=== PATIENT | female | born 1990 | race Caucasian/White ===

== ENCOUNTER → 2017-11-15 10:10 | Outpatient (CLI) | payer OTHER, SELFPAY ==
[2017-11-15 11:53] LABS: Free T3 4.6 pg/mL (2.18-3.98); T4 Free Direct 1.04 ng/dL (0.76-1.46); Thyroid Stim Hormone (TSH) < 0.01 uIU/mL (0.358-3.74)
== END ==
DX: O09.90 Supervision of high risk pregnancy, unspecified, unspecified trimester (principal); Z3A.00 Weeks of gestation of pregnancy not specified
CPT/HCPCS: 36415; 84439; 84443; 84481

== ENCOUNTER → 2017-12-13 09:36 | Outpatient (CLI) | payer OTHER, SELFPAY ==
[2017-12-13 11:32] LABS: Free T3 6.5 pg/mL (2.18-3.98); T4 Free Direct 1.43 ng/dL (0.76-1.46); Thyroid Stim Hormone (TSH) < 0.01 uIU/mL (0.358-3.74)
== END ==
DX: O09.90 Supervision of high risk pregnancy, unspecified, unspecified trimester (principal); Z3A.00 Weeks of gestation of pregnancy not specified
CPT/HCPCS: 36415; 84439; 84443; 84481

== ENCOUNTER → 2017-12-15 11:22 | Outpatient (CLI) | payer OTHER, SELFPAY ==
[2017-12-15 13:16] LABS: 24 Hour Urine Protein 344.4 mg/24HR (<150 MG/24HR); 24HR. UA Prot. Total Volume 2050 mL; Urine Protein (24 Hour) 16.8 mg/dL (<11.9)
== END ==
DX: O09.90 Supervision of high risk pregnancy, unspecified, unspecified trimester (principal); Z3A.00 Weeks of gestation of pregnancy not specified
CPT/HCPCS: 84156

== ENCOUNTER → 2018-01-10 13:31 | Outpatient (CLI) | payer OTHER, SELFPAY ==
[2018-01-10 16:17] LABS: Free T3 5.7 pg/mL (2.18-3.98); T4 Free Direct 1.42 ng/dL (0.76-1.46); Thyroid Stim Hormone (TSH) < 0.01 uIU/mL (0.358-3.74)
== END ==
PROVIDERS: Family Provider Internal Medicine; PCP Internal Medicine
DX: O09.90 Supervision of high risk pregnancy, unspecified, unspecified trimester (principal); Z3A.00 Weeks of gestation of pregnancy not specified
CPT/HCPCS: 36415; 84439; 84443; 84481

== ENCOUNTER → 2018-01-19 09:28 | Outpatient (CLI) | payer OTHER, SELFPAY ==
[2018-01-19 10:36] LABS: Hematocrit 32.8 % (37-47); Hemoglobin 10.9 g/dl (12.0-15.0); Mean Corp Hgb Conc 33.2 g/gl (32-36); Mean Corpuscular Volume 84.3 fL (81-99); Mean Platelet Vol. 9.3 fl (6.2-12.0); Platelet Count 228 K/mm3 (150-450); RBC Distribution Width CV 12.4 % (11.6-14.6); RBC Distribution Width SD 37.8 fl (35.1-43.9); Red Blood Count 3.89 M/mm3 (4.2-5.4); White Blood Count 7.3 K/mm3 (4.4-11.0)
[2018-01-19 10:37] LABS: Scan Indicated on CBC? Y/N NO
[2018-01-19 10:40] LABS: Glucose Challenge Gest 1H 50g 147 mg/dL (70-140)
== END ==
PROVIDERS: Visit Provider Obstetrics & Gynecology
DX: Z34.82 Encounter for supervision of other normal pregnancy, second trimester (principal)
CPT/HCPCS: 36415; 82950; 85027

== ENCOUNTER → 2018-01-24 06:50 | Outpatient (CLI) | payer OTHER, SELFPAY ==
[2018-01-24 08:12] LABS: Glucose GTT-Gestation. Fasting 82 mg/dL (<105)
[2018-01-24 09:19] LABS: Glucose GTT-Gestational 1 Hr 137 mg/dL (<190)
[2018-01-24 10:00] LABS: Glucose GTT-Gestational 2 Hr 117 mg/dL (<165)
[2018-01-24 11:26] LABS: Glucose GTT-Gestational 3 Hr 73 L (<145)
== END ==
PROVIDERS: Family Provider Internal Medicine; PCP Internal Medicine; Visit Provider Obstetrics & Gynecology
DX: O99.810 Abnormal glucose complicating pregnancy (principal); Z3A.00 Weeks of gestation of pregnancy not specified
CPT/HCPCS: 36415; 82951; 82952

== ENCOUNTER → 2018-02-03 10:40 | Outpatient (CLI) | payer OTHER, SELFPAY ==
[2018-02-03 13:13] LABS: ALB/GLOB Ratio 0.7 RATIO (0.9-2.4); AST(SGOT) 11 U/L (15-37); Alanine Aminotransfer ALT/SGPT 18 U/L (13-56); Albumin, Serum 2.6 g/dL (3.2-5.0); Alkaline Phosphatase 75 U/L (45-117); Anion Gap 7 (5-15); BUN 7 mg/dL (7-18); BUN/Creat Ratio 14.1 RATIO (10-20); Calcium,Total 9.2 mg/dL (8.5-10.1); Chloride 107 mmol/L (98-107); EST Glomerular Filtration Rate 155 mL/min (>60); Est Glom Filt Rate - Afr Amer 187 mL/min (>60); Free T3 5.7 pg/mL (2.18-3.98); Globulin 3.8 g/dL (2.2-4.2); Glucose 83 mg/dL (74-106); Protein, Total 6.4 g/dL (6.4-8.2); Sodium Level 139 mmol/L (136-145); T4 Free Direct 1.41 ng/dL (0.76-1.46); Thyroid Stim Hormone (TSH) < 0.01 uIU/mL (0.358-3.74); Total Bilirubin < 0.10 mg/dL (0.20-1.00)
[2018-02-04 08:27] LABS: Vitamin D,25 Hydroxy 25.9 ng/mL (29.95-100.01)
== END ==
DX: O09.90 Supervision of high risk pregnancy, unspecified, unspecified trimester (principal); Z3A.00 Weeks of gestation of pregnancy not specified; E55.9 Vitamin D deficiency, unspecified; E05.90 Thyrotoxicosis, unspecified without thyrotoxic crisis or storm
CPT/HCPCS: 36415; 80053; 82306; 84439; 84443; 84481

== ENCOUNTER → 2018-03-03 10:38 | Outpatient (CLI) | payer OTHER, SELFPAY ==
[2018-03-03 13:00] LABS: Free T3 5.6 pg/mL (2.18-3.98); T4 Free Direct 1.51 ng/dL (0.76-1.46); Thyroid Stim Hormone (TSH) < 0.01 uIU/mL (0.358-3.74)
== END ==
DX: O09.90 Supervision of high risk pregnancy, unspecified, unspecified trimester (principal)
CPT/HCPCS: 36415; 84439; 84443; 84481

== ENCOUNTER → 2018-03-18 09:30 | Outpatient (CLI) | payer OTHER, SELFPAY ==
--- NOTE | 2018-03-18 09:30 | DT_ITS ---
This patient was seen during an EMR downtime March 14, 2018 - March 21, 2018. This patient may have a combination of paper and electronic documentation or all paper documentation. All documentation is viewable within the e-chart portion of [facility] for each patient visit.
== END ==
PROVIDERS: Visit Provider Obstetrics & Gynecology
DX: N39.0 Urinary tract infection, site not specified (principal)
CPT/HCPCS: 87086

== ENCOUNTER → 2018-03-30 11:44 | Outpatient (CLI) | payer OTHER, SELFPAY ==
[2018-03-30 12:27] LABS: ROM Internal Control Test YES-OK TO RESULT pt. (Internal QC)
[2018-03-30 12:28] LABS: ROM Patient Test Negative (Negative)
[2018-03-30 12:52] LABS: Free T3 5.8 pg/mL (2.18-3.98); T4 Free Direct 1.59 ng/dL (0.76-1.46); Thyroid Stim Hormone (TSH) < 0.01 uIU/mL (0.358-3.74)
[2018-03-30 14:05] LABS: Group B Strep DNA By PCR POSITIVE (Negative); Probe Check PASS
== END ==
PROVIDERS: Visit Provider Obstetrics & Gynecology
DX: Z34.83 Encounter for supervision of other normal pregnancy, third trimester (principal)
CPT/HCPCS: 36415; 84112; 84439; 84443; 84481; 87653

== ENCOUNTER 2018-04-11 10:10 | Inpatient (IN) | payer OTHER, SELFPAY ==
[2018-04-11 10:37] VITALS: BMI 27.3
[2018-04-11] MEDS: Lactated Ringers 1,000 ML 50 ML IV ×3 (10:40→18:45)
[2018-04-11 10:52] LABS: Hemoglobin 11.7 g/dl (12.0-15.0); Mean Corp Hgb Conc 33.4 g/gl (32-36); Mean Corpuscular Hgb 27.3 pg (27.0-32.0); Mean Corpuscular Volume 81.8 fL (81-99); Mean Platelet Vol. 9.2 fl (6.2-12.0); Platelet Count 220 K/mm3 (150-450); RBC Distribution Width CV 13.1 % (11.6-14.6); Red Blood Count 4.28 M/mm3 (4.2-5.4); White Blood Count 7.5 K/mm3 (4.4-11.0)
[2018-04-11 10:53] LABS: Scan Indicated on CBC? Y/N NO
[2018-04-11] MEDS: Oxytocin 30 units/NS 500 ml 30 UNITS/500 ML IV.SOLN IV (11:33)
[2018-04-11] MEDS: fentaNYL-bupivacaine (epidural) 100 ML BAG EPIDURAL ×2 (15:54→18:47)
[2018-04-11] MEDS: Acetaminophen 325 MG Tablet PO (17:24)
[2018-04-11] MEDS: Oxytocin 30 units/NS 500 ml 30 UNITS/500 ML IV.SOLN 334 UNITS IV (21:45)
--- NOTE | 2018-04-11 21:57 | PCM.OB.VAG ---
Vaginal Delivery Maternal Presentation: Medically Indicated Induction - Hyperthyroidism Method of Induction: Pitocin, Amniotomy Amniotic Membrane Rupture Type: Artificial Amniotic Fluid Description: Clear Final RADHA: 04/15/18 Final RADHA Source: US <20 weeks Gestational age: 39 Weeks and 3 Days Date of Procedure: 04/11/18 Pre-Operative Diagnosis: IUP, Hyperthyroidism Post-Operative Diagnosis: IUP, Hyperthyroidism Surgery/ Procedure Performed: Spontaneous Vaginal Delivery Type of Anesthesia: Epidural Description of Procedure: Spontaneous vaginal delivery of a viable male infant with Apgars of 8/9 from an occiput anterior presentation clear amniotic fluid and a normal 3 vessel placenta. No episiotomy. First-degree 1 cm right labial laceration repaired with 3-0 chromic suture interrupted under epidural anesthesia. Sponge counts okay. Delivery physician: Sai Pfeiffer MD. Presentation: Vertex Placental Delivery Description: Spontaneous Placenta Disposition: [facility] Cord Vessel Description: 3 Vessels Cord Gases drawn per routine: ABG Cord Entanglement: None Estimated Blood Loss: 250 cc Infant A gender: Male (1 minute): 8 (5 minute): 9 Episiotomy Description: None Medications given after delivery: IV Pitocin Complications: None
--- NOTE | 2018-04-11 22:04 | DCINST_ITS ---
Discharge Diet: No Restrictions Discharge Activity: May Shower, May Take a Tub Bath May resume sexual activity in: 4-6 weeks Additional Activity Instructions:: Nothing in the vagina for 4-6 weeks. You may return to work/school in 6 weeks. Call your doctor if you observe: Fever of 101 or Higher, Inability to urinate, Inability to have a bowel movement, Using more than one pad per hour Additional Instructions: If you experience any of the following, contact your healthcare provider. * Bleeding that soaks a pad every hour for 2 hours * Unrelieved incision or abdominal pain * Swelling, redness, discharge or bleeding from your incision or episiotomy site * Your incision begins to separate * Problems urinating (including inability to urinate or burning while urinating) . * Visual changes * Severe headache * Flu-like symptoms * Pain or redness in one of both of your breasts * Pain, warmth, tenderness or swelling in your legs, especially the calf area * Frequent nausea and vomiting * Symptoms of depression or anxiety If you experience any of the following, call 911 or go to the nearest Emergency Room. * Chest pain * Problems breathing * Seizure activity * Partial or complete paralysis of a body part, slurred speech, weakness or drooping of the face, or a sudden inability to walk or hold your balance Allergies/Adverse Reactions: Allergies No Known Allergies Allergy (Verified 06/26/14 06:08) Medications to take at Discharge Vits [Prenatabs FA ] 1 tablet PO DAILY 06/26/14 Methimazole 10 mg PO DAILY 04/11/18 Ranitidine [Zantac] 150 mg PO BID 04/11/18 Please Follow Up With: Sai Pfeiffer MD - [phone] When: Call to make an appointment with your doctor in 6 weeks. Primary Care Physician: Mehdi Rivera MD [Primary Care Provider] - Test Results:
--- NOTE | 2018-04-11 22:04 | PCM.DCVAG ---
Discharge Diet: No Restrictions Discharge Activity: May Shower, May Take a Tub Bath May resume sexual activity in: 4-6 weeks Additional Activity Instructions:: Nothing in the vagina for 4-6 weeks. You may return to work/school in 6 weeks. Call your doctor if you observe: Fever of 101 or Higher, Inability to urinate, Inability to have a bowel movement, Using more than one pad per hour Additional Instructions: If you experience any of the following, contact your healthcare provider. Bleeding that soaks a pad every hour for 2 hours Unrelieved incision or abdominal pain Swelling, redness, discharge or bleeding from your incision or episiotomy site Your incision begins to separate Problems urinating (including inability to urinate or burning while urinating). Visual changes Severe headache Flu-like symptoms Pain or redness in one of both of your breasts Pain, warmth, tenderness or swelling in your legs, especially the calf area Frequent nausea and vomiting Symptoms of depression or anxiety If you experience any of the following, call 911 or go to the nearest Emergency Room. Chest pain Problems breathing Seizure activity Partial or complete paralysis of a body part, slurred speech, weakness or drooping of the face, or a sudden inability to walk or hold your balance Allergies/Adverse Reactions: Allergies No Known Allergies Allergy (Verified 06/26/14 06:08) Medications to take at Discharge Vits [Prenatabs FA ] 1 tablet PO DAILY 06/26/14 Methimazole 10 mg PO DAILY 04/11/18 Ranitidine [Zantac] 150 mg PO BID 04/11/18 Please Follow Up With: Sai Pfeiffer MD - [phone] When: Call to make an appointment with your doctor in 6 weeks. Primary Care Physician: Mehdi Rivera MD [Primary Care Provider] - Test Results:
[2018-04-11] MEDS: Oxytocin 30 units/NS 500 ml 30 UNITS/500 ML IV.SOLN 167 UNITS IV (22:15)
[2018-04-11] MEDS: METHIMAZOLE 5 MG TABLET 10 MG PO (22:54)
[2018-04-12] MEDS: Ibuprofen 600 MG Tablet PO ×3 (01:30→16:10)
[2018-04-12 04:00] VITALS: BP 120/69; PULSE 68; RESP 16; TEMP 36.6; O2SAT 99
[2018-04-12] MEDS: Acetaminophen 500 MG Tablet 1000 MG PO ×3 (04:41→20:31)
--- NOTE | 2018-04-12 06:21 | PCM.PN.OB ---
Subjective: Patient without complaints. Breast-feeding going well. - Physical Exam Vital Signs Temp Pulse Resp BP Pulse Ox 97.9 F 68 16 120/69 99 04/12/18 04:00 04/12/18 04:00 04/12/18 04:00 04/12/18 04:00 04/12/18 04:00 Oxygen Delivery Method Room Air Weight: 169 lb 4 oz Body Mass Index (BMI) 27.3 Intake and Output for Last 24 Hours 04/10/18 04/11/18 04/12/18 23:59 23:59 23:59 Intake Total 5921 / 5921 Output Total 1500 / 1500 700 / 700 Balance 4421 / 4421 -700 / -700 Laboratory Tests Past 24 Hrs 04/11/18 04/11/18 10:30 10:30 WBC 7.5 RBC 4.28 Hgb 11.7 L Hct 35.0 L MCV 81.8 MCH 27.3 MCHC 33.4 RDW 13.1 RDW Differential 39.0 Plt Count 220 MPV 9.2 Blood Type A POSITIVE Antibody Screen NEGATIVE Medical Necessity - Tobacco Use Smoking Status: Never smoker Assessment/Plan Doing well. Continuing present care.
[2018-04-12 07:30] VITALS: BP 115/60; PULSE 76; RESP 16; TEMP 36.2
[2018-04-12 11:27] VITALS: BP 131/73; PULSE 88; RESP 16; TEMP 36.1
[2018-04-12 20:25] VITALS: BP 122/82; PULSE 70; RESP 16; TEMP 36
[2018-04-12] MEDS: METHIMAZOLE 5 MG TABLET 10 MG PO (22:07)
[2018-04-13] MEDS: Ibuprofen 600 MG Tablet PO ×2 (00:16→09:37)
[2018-04-13 02:00] VITALS: BP 106/58; PULSE 71; RESP 16; TEMP 35.9
--- NOTE | 2018-04-13 03:15 | NURSING ---
Taking over pt care at this time.
[2018-04-13] MEDS: Acetaminophen 500 MG Tablet 1000 MG PO (06:28)
--- NOTE | 2018-04-13 07:44 | PCM.PN.OB ---
Subjective: PPD#2 doing well. ready to go home. Taking some tylenol and NSAID for cramping prn. no other concerns voiced. - Physical Exam General: Alert, Oriented x3, Cooperative, No apparent distress HEENT: Atraumatic Neck: Supple Abdomen: Soft - Fundus firm NT at 1-2 cm inferior to umbilicus Psych/Mental Status: Normal Affect Vital Signs Temp Pulse Resp BP Pulse Ox 96.7 F L 71 16 106/58 L 99 04/13/18 02:00 04/13/18 02:00 04/13/18 02:00 04/13/18 02:00 04/12/18 04:00 Oxygen Delivery Method Room Air Weight: 76.771 kg Body Mass Index (BMI) 27.3 Intake and Output for Last 24 Hours 04/11/18 04/12/18 04/13/18 23:59 23:59 23:59 Intake Total 5921 / 5921 Output Total 1500 / 1500 700 / 700 Balance 4421 / 4421 -700 / -700 Medical Necessity - Tobacco Use Smoking Status: Never smoker Assessment/Plan PPD#2 induction for hyperthyroidism Stable pp. Dischg home. RTO in 6 wk for pp check as planned.
[2018-04-13 08:30] VITALS: BP 108/65; PULSE 73; RESP 15; TEMP 36.2; O2SAT 98
== END 2018-04-13 09:45 | disposition home or self-care (01) | DRG 775 ==
PROVIDERS: Admitting Provider Obstetrics & Gynecology; Family Provider Internal Medicine; PCP Internal Medicine; Visit Provider Obstetrics & Gynecology
DX: O99.284 Endocrine, nutritional and metabolic diseases complicating childbirth (principal); E05.90 Thyrotoxicosis, unspecified without thyrotoxic crisis or storm; O70.0 First degree perineal laceration during delivery; Z37.0 Single live birth; Z3A.39 39 weeks gestation of pregnancy
CPT/HCPCS: 59025; 59050; 85027; 86850; 86900; 99218; J7120; G0378

== ENCOUNTER → 2018-04-27 14:19 | Outpatient (CLI) | payer OTHER, SELFPAY ==
[2018-04-27 16:42] LABS: Free T3 6.8 pg/mL (2.18-3.98); T4 Free Direct 1.64 ng/dL (0.76-1.46); Thyroid Stim Hormone (TSH) < 0.01 uIU/mL (0.358-3.74)
== END ==
PROVIDERS: Visit Provider Obstetrics & Gynecology
DX: E21.3 Hyperparathyroidism, unspecified (principal)
CPT/HCPCS: 36415; 84439; 84443; 84481

== ENCOUNTER → 2018-04-27 14:35 | Day surgery (SDC) | payer OTHER, SELFPAY | PROVIDERS: Anesthesiology; Family Provider Internal Medicine; PCP Internal Medicine; Visit Provider Obstetrics & Gynecology | PROC: 3E0R3GC Introduction of Other Therapeutic Substance into Spinal Canal, Percutaneous Approach (ICD-10-PCS; CPT 62273; principal; 2018-04-27 14:45) | DX: G97.1 Other reaction to spinal and lumbar puncture (principal); Y84.4 Aspiration of fluid as the cause of abnormal reaction of the patient, or of later complication, without mention of misadventure at the time of the procedure; Y92.9 Unspecified place or not applicable | CPT/HCPCS: 62273; J7120 ==

== ENCOUNTER → 2018-07-18 11:58 | Outpatient (CLI) | payer OTHER, SELFPAY ==
[2018-07-18 12:08] LABS: Bacteria 0 SEEN /hpf (None Seen); Red Blood Cells-Urine 0 SEEN /hpf (0-5)
[2018-07-18 13:29] LABS: Color, Urine Yellow (Yellow); Glucose, Dipstick Normal (Normal); Ketone-Dipstick Negative (Negative); Leukocyte Esterase-Dipstick Negative /ul (Negative); Nitrite-Dipstick Negative (Negative); Occult Blood-Urine Negative /ul (Negative); Protein-Dipstick 100 mg/dl (Negative); Urine Bilirubin Dipstick Negative (Negative); Urine Clarity Clear (Clear); Urine Urobilinogen Normal (Normal)
[2018-07-18 13:36] LABS: Mucous, Urine 1+ /hpf (<or=2+); Squamous Epithelial Cells - UA 0-5 SEEN /hpf (5-10); White Blood Cells 0-5 SEEN /hpf (0-5)
== END ==
PROVIDERS: Family Provider Internal Medicine; PCP Internal Medicine; Referring Provider Internal Medicine; Visit Provider Internal Medicine
DX: R80.9 Proteinuria, unspecified (principal)
CPT/HCPCS: 81001

== ENCOUNTER → 2018-07-22 08:15 | Outpatient (CLI) | payer OTHER, SELFPAY ==
[2018-07-22 09:20] LABS: 24HR. UA Prot. Total Volume 2050 mL
== END ==
PROVIDERS: Family Provider Internal Medicine; PCP Internal Medicine; Referring Provider Internal Medicine; Visit Provider Internal Medicine
DX: R80.9 Proteinuria, unspecified (principal)
CPT/HCPCS: 81050; 84156

== ENCOUNTER → 2019-07-11 12:14 | Outpatient (CLI) | payer OTHER, SELFPAY ==
[2019-05-26 14:03] VITALS: BMI 22.7
[2019-07-11 14:09] LABS: CRP < 2.90 mg/L (0.0-3.0)
[2019-07-13 16:08] LABS: Endomysial Antibody IgA Negative (Negative)
[2019-07-14 12:48] LABS: Immunoglobulin A 164 mg/dL (87-352); t-Transglutaminase IgA <2 U/mL (0-3)
== END ==
PROVIDERS: Family Provider Internal Medicine; PCP Internal Medicine; Referring Provider Internal Medicine Gastroenterology; Visit Provider Internal Medicine Gastroenterology
DX: R19.7 Diarrhea, unspecified (principal)
CPT/HCPCS: 36415; 82784; 83516; 86140; 86255

== ENCOUNTER → 2019-07-17 09:00 | Outpatient (CLI) | payer OTHER, SELFPAY ==
[2019-05-26 14:03] VITALS: BMI 22.7
--- NOTE | 2019-07-17 09:02 | RAD_ITS ---
CLINICAL HISTORY: Female, 29 years old. Diarrhea forever PROCEDURE: Small bowel study FLUOROSCOPY TIME (if supplied): (1:06) minutes/seconds TECHNIQUE: (The pulmonary study shows a nonspecific gas pattern scattered throughout the large and small intestines. Barium contrast was orally ingested and sequential images were obtained. Then passed from the stomach through the small intestine to the colon in 30 minutes. 3 spot images of the terminal ileum were obtained and appear to be normal. No evidence of fistulas or masses or lesions are seen. The appendix partially fills and appears to be normal. RAD/Small Bowel Series Only IMPRESSION: Normal small bowel study Electronically Signed: Sai Gould, at 16:02 EDT Tel , Service support ,
== END ==
PROVIDERS: Family Provider Internal Medicine; PCP Internal Medicine; Referring Provider Internal Medicine Gastroenterology; Visit Provider Internal Medicine Gastroenterology
DX: R19.7 Diarrhea, unspecified (principal)
CPT/HCPCS: 74250

== ENCOUNTER → 2019-09-21 11:23 | Outpatient (CLI) | payer OTHER, SELFPAY ==
[2019-07-21 09:48] VITALS: BMI 22.7
[2019-09-21 13:19] LABS: AST(SGOT) 9 U/L (15-37); Alanine Aminotransfer ALT/SGPT 16 U/L (13-56); Albumin, Serum 3.8 g/dL (3.2-5.0); Alkaline Phosphatase 50 U/L (45-117); Bilirubin, Direct 0.07 mg/dL (0.00-0.30); Globulin 3.2 g/dL (2.2-4.2); Lipase 69 U/L (73-393)
== END ==
PROVIDERS: Family Provider Internal Medicine; PCP Internal Medicine; Referring Provider Internal Medicine Gastroenterology; Visit Provider Internal Medicine Gastroenterology
DX: R10.9 Unspecified abdominal pain (principal)
CPT/HCPCS: 36415; 80076; 83690

== ENCOUNTER 2020-12-12 16:41 | Emergency (ER) | payer OTHER, SELFPAY ==
[2019-07-21 09:48] VITALS: BMI 22.7
[2020-12-12 16:41] VITALS: BP 142/81; PULSE 80; RESP 16; TEMP 35.6; O2SAT 100
[2020-12-12 16:42] VITALS: BP 142/81; PULSE 84; RESP 16; TEMP 35.6; O2SAT 100; BMI 22.0
--- NOTE | 2020-12-12 17:02 | EKG12_ITS ---
Test Reason : DIZZINESS Blood Pressure : / mmHG Vent. Rate : 065 BPM Atrial Rate : 065 BPM P-R Int : 180 ms QRS Dur : 080 ms QT Int : 444 ms P-R-T Axes : 057 080 055 degrees QTc Int : 461 ms Normal sinus rhythm Septal infarct , age undetermined , cannot be excluded Abnormal ECG Confirmed by NALINI BABIN, AISHWARYA ([id number]), clinical editor ROYR PRINGLE ([id number]) on 12/16/2020 2:42:21 PM Referred By: Confirmed By:AISHWARYA GAYLE MD
--- NOTE | 2020-12-12 17:11 | ED.VISSUMM ---
- ER Visit Summary Date of Service: 12/12/20 Chief Complaint: Vertigo History of Present Illness: The patient is a 30 F presenting with vertigo. 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 She states it is worse with turning her head or changing positions. She has had these symptoms in the past with previous pregnancies. She does not believe she is currently . She has nausea with no vomiting. She denies fever. She had Covid 3 weeks ago and has recovered. Physical Examination: Vitals are stable. Patient is afebrile. Alert no acute distress. HEENT exam is unremarkable. Neck is supple. No meningismus Lungs are clear and equal bilaterally. Heart is regular rate and rhythm. Abdomen is soft nontender nondistended. Extremities are unremarkable. Skin is warm and dry. No focal neurologic deficit. Normal strength and sensation Remainder of exam is unremarkable. Emergency Department Course and Treatment: Patient was given IV fluids, Zofran, Valium. EKG is sinus rhythm rate of 65 with no acute ischemic changes. CBC, chemistries unremarkable. Troponin is negative. hCG negative. D-dimer normal. Patient is feeling much improved on reevaluation. She is able to ambulate with a steady gait. She is given prescription for Valium as needed. She is advised to follow-up with her PCP or ENT as needed. Advised return to the ED for worsening complaints. Disposition: Discharge home Impression: Benign positional vertigo This note was generated with [employer] dictation software. It may contain incorrect words, spelling, and punctuation that were not noted in review of the chart prior to signing ED Disposition - Plan for ED Patient: Disposition: Home or Assisted Living Instructions: ED BPV Vertigo Prescriptions: Diazepam [Valium] 2 mg PO TID PRN PRN #10 tab PRN Reason: Vertigo Prescription Printed Referrals: Vargas Baeza MD [STAFF PHYSICIAN] - Mehdi Rivera MD [Primary Care Provider] -
[2020-12-12] MEDS: 0.9% Normal Saline 1,000 ML 1000 ML IV (17:26)
[2020-12-12] MEDS: Ondansetron 4 MG/2 ML Vial IV (17:26)
[2020-12-12] MEDS: diazePAM 5 MG Tablet PO (17:28)
[2020-12-12 17:46] LABS: Absolute Lymphocyte Count 2.34 X10^3/uL (0.83-4.51); Absolute Neutrophil Count 2.8 X10^3/uL (2.0-7.7); Basophil# 0.04 X10^3/uL; Basophil% 0.7 % (0-1); Eosinophil# 0.08 X10^3/uL; Eosinophils% 1.4 % (0-5); Hematocrit 41.9 % (37-47); Lymphocyte # 2.34 X10^3/ul (4.0); Lymphocyte % 40.7 % (19-41); Mean Corp Hgb Conc 33.4 g/dL (32-36); Mean Corpuscular Hgb 29.9 pg (27.0-32.0); Mean Corpuscular Volume 89.5 fL (81-99); Mean Platelet Vol. 9.7 fl (6.2-12.0); Monocyte% 8.7 % (0-10); NRBC Flagged by Analyzer 0 % (0-5); Neutrophil # 2.78 X10^3/uL (2.7-7.7); Neutrophil % 48.3 % (47-70); Platelet Count 317 K/mm3 (150-450); RBC Distribution Width CV 11.9 % (11.6-14.6); RBC Distribution Width SD 38.2 fl (35.1-43.9); Red Blood Count 4.68 M/mm3 (4.2-5.4); White Blood Count 5.8 K/mm3 (4.4-11.0)
[2020-12-12 18:00] LABS: Anion Gap 6 (5-15); BUN 13 mg/dL (7-18); BUN/Creat Ratio 15.4 RATIO (10-20); Chloride 102 mmol/L (98-107); Creatinine, Serum 0.84 mg/dL (0.55-1.02); EST Glomerular Filtration Rate 83 mL/min (>60); Est Glom Filt Rate - Afr Amer 100 mL/min (>60); Estimated Creatinine Clearance 90.01 ml/min; Glucose 76 mg/dL (74-106); Potassium 3.8 mmol/L (3.5-5.1); Sodium Level 137 mmol/L (136-145)
[2020-12-12 18:11] LABS: Internal QC Validated? YES +Cl - CLEAR BKGD; Pregnancy, Serum, hCG Quali. NEGATIVE Negative
--- NOTE | 2020-12-12 18:27 | ED.DEP ---
ED Disposition - Plan for ED Patient: Instructions: ED BPV Vertigo Prescriptions: Diazepam [Valium] 2 mg PO TID PRN PRN #10 tab PRN Reason: Vertigo Prescription Printed Referrals: Mehdi Rivera MD [Primary Care Provider] - Vargas Baeza MD [STAFF PHYSICIAN] -
[2020-12-12 18:28] VITALS: BP 132/77; BP 137/87; BP 140/84; PULSE 58; PULSE 68; PULSE 74; RESP 16; O2SAT 100
[2020-12-12 21:40] LABS: D-Dimer Quantitative (DVT/PE) <= 0.27 FEU/ug/m (0.27-0.49)
== END 2020-12-12 19:22 | disposition home or self-care (01) ==
LOC: ED 17:52
PROVIDERS: Emergency Provider Emergency Medicine; PCP Internal Medicine
DX: H81.10 Benign paroxysmal vertigo, unspecified ear (principal); E03.9 Hypothyroidism, unspecified
CPT/HCPCS: 80048; 84484; 84703; 85025; 85379; 93005; 96361; 96374; 99285; J7030; A4216; J2405

== ENCOUNTER → 2021-02-24 15:05 | Outpatient (CLI) | payer OTHER, SELFPAY ==
[2021-01-23 10:37] VITALS: BMI 21.6
== END ==
PROVIDERS: PCP Internal Medicine; Referring Provider Physician Assistant; Visit Provider Physician Assistant
DX: U07.1 COVID-19 (principal)
CPT/HCPCS: 36415; 86769

== ENCOUNTER 2021-09-11 07:40 | Day surgery (SDC) | payer OTHER, SELFPAY ==
[2021-09-11] VITALS (7 sets, daily range): BP systolic 92–104; BP diastolic 46–64; PULSE 53–68; RESP 16; TEMP 36.2–36.3; O2SAT 95–100; BMI 21.3
--- NOTE | 2021-09-11 | EGD_PTH ---
PATIENT: NOAH COOPER LOC: EN U#:[id number] AGE/SX: 31/F ROOM: RE09/11/[address]: Dr. Connor Kramer DO : 1990 BED: DIS: 09/11/2021 SPEC #: [id number] RECD: 09/11/21 12:27 STATUS: DORCAS MIKALA #: [id number] YARI: 09/11/21 00:[address]: Connor Kramer DEPT: SURGICAL PATHOLOGY RECD BY: Jonny Self ENTERED: 09/11/21 12:28 SP TYPE: EGD BIOPSY OT DR: Dr. Mehdi Rivera MD Tissues: A - Duodenum, NOS B - Gastric mucous membrane C - Esophageal mucous membrane D - Ileum, NOS E - COLON BIOPSY Procedures: Special Stain Group II Surgery Specimen Level IV Alcian Blue/PAS (control) HEADER OPERATION: EGD, colonoscopy PRE-OP DIAGNOSIS: Irritable bowel syndrome with diarrhea, GERD TISSUE SUBMITTED: A ? Duodenum biopsy, B ? Antrum for H. pylori and pathology, C ? Distal esophagus biopsy, D ? Terminal ileum biopsy, E ? Random colon biopsy MICROSCOPIC DIAGNOSIS A. Duodenum, biopsy: Fragments of duodenal mucosa, no pathologic diagnosis. B. Antrum, biopsy: Mild gastritis. See microscopic description and comment. C. Distal esophagus, biopsy: Fragments of gastroesophageal mucosa with focal intestinal metaplasia (goblet cell metaplasia), consistent with Ryan?s esophagus. Moderate chronic inflammation. Negative for dysplasia. See comment. D. Terminal ileum, biopsy: Fragments of small intestinal mucosa, no pathologic diagnosis. E. Colon, random biopsy: Fragments of colonic mucosa, no pathologic diagnosis. SJ:hector 09/12/2021 COMMENT B. The results of immunohistochemistry for Helicobacter pylori will be reported separately ([id number]). C. Alcian blue/PAS stain with matched control is used in the evaluation of the specimen. Immunohistochemistry ([id number]) for P53 and Ki-67 will be performed and results will be reported separately. MICROSCOPIC DESCRIPTION Slides are reviewed. B. The specimen shows fragments of gastric mucosa with chronic inflammatory cell infiltrates in the lamina propria consisting of lymphocytes and plasma cells, consistent with mild chronic gastritis. GROSS DESCRIPTION A - Received in fixative is one container labeled with the patient's name and designated duodenal biopsy. The specimen consists of multiple irregular fragments of light new soft tissue that in aggregate measure 1 x 0.3 x 0.1 cm. The specimen is totally submitted in one cassette. B - Received in fixative is one container labeled with the patient's name and designated antrum biopsy. The specimen consists of multiple irregular fragments of light new soft tissue that in aggregate measure 1 x 0.3 x 0.1 cm. The specimen is totally submitted in one cassette. C - Received in fixative is one container labeled with the patient's name and designated distal esophagus biopsy. The specimen consists of two irregular fragments of light new soft tissue that in aggregate measure 0.6 x 0.3 x 0.1 cm. The specimen is totally submitted in one cassette. D - Received in fixative is one container labeled with the patient's name and designated terminal ileum biopsy. The specimen consists of two irregular fragments of light new soft tissue that in aggregate measure 0.6 x 0.3 x 0.1 cm. The specimen is totally submitted in one cassette. E - Received in fixative is one container labeled with the patient's name and designated random colon biopsy. The specimen consists of multiple irregular fragments of light new soft tissue that in aggregate measure 1.5 x 0.5 x 0.1 cm. The specimen is totally submitted in one cassette. / SJ:rg 09/11/21 TC:3 [facility]: [id number] x5, [phone]
[2021-09-11] MEDS: Lactated Ringers 1,000 ML 15 ML IV (07:55)
[2021-09-11 08:09] LABS: Internal QC Validated? YES +Cl - CLEAR BKGD
[2021-09-11 08:12] LABS: Pregnancy, Urine Negative Negative
--- NOTE | 2021-09-11 08:41 | PCM.HP.BLA ---
History and Physical Date of Admission: 09/11/21 [facility] [id number] [place] [address] OFFICE VISITDate of Service: 08/11/21 MR#:[id number]:[id number]: NOAH COOPER [facility] #:[id number]:1990 Provider:Connor Friend, DOAge/Sex: 31/F [facility] [place]:Signed Intake Intake Visit Reasons: CHRONIC STOMACH ISSUES Allergies No Known Allergies Allergy (Verified 01/23/21 10:33) Medications levothyroxine 75 mcg tablet 75 mcg PO DAILY 02/17/19 [History Confirmed 08/11/21] diazepam 2 mg PO TID PRN PRN #10 tab 12/12/20 [Rx Confirmed 08/11/21] sertraline 25 mg tablet 25 mg PO DAILY #90 tablet 01/23/21 [Rx Confirmed 08/11/21] sertraline 100 mg tablet 100 mg PO DAILY #90 tab 03/31/21 [Rx Confirmed 08/11/21] PFSH Medical History Hypothyroidism Surgical History History of partial thyroidectomy Family History Sister Diabetes Social History (Updated 01/24/21 @ 09:02 by Walter Chiu NP, [employer]AD[employer]PERATIONS ENGINEER-C) Smoking Status: Never smoker alcohol intake: never substance use type: does not use what type of physical activity do you participate in: running frequency: 3-4 times per week HPI HPI Details: NOAH COOPER, is a 31 F who presents to the office today for Has difficulty with anxiety. In her early twenties she began having difficulty with diarrhea which is urgent and occurs three times a week. She has not found any triggers. History of colonoscopy ten years prior with another GI who told her she has IBD and to control with immodium, usually requires three doses to stop having diarrhea. When she was with her son she was noted to have hyperthyroid and had thyroidectomcy and is now of levothryoxine. PCP thinks her GI symptoms are related to hormones. ANother GI suggested she took half an immodium QD which did not help. Her brother was recently diagnosed with ulcerative colitis and had to get a total colectomy. ROS Const Constitutional: Positive for fatigue Gastro GI: Positive for abdominal pain, bloating, diarrhea, heartburn and nausea/dyspepsia Musc Musculoskeletal: Positive for joint pain, back pain, muscle cramps, stiffness and Arthritis Psych Psychiatric: Positive for anxiety Endo Endocrine: Positive for fatigue Clyde/Lymp Hematologic/Lymphatic: Positive for easy bruising Exam Const General: cooperative and comfortable Nutritional Appearance: average body habitus and well nourished HENMT Head: normal to inspection Ears: hearing grossly normal bilaterally Nose: external nose normal Face and sinus: normal facial exam Mouth: oral mucosae normal Throat: posterior oropharynx normal Eyes General: appearance normal, both eyes and all related structures Neck Neck: normal visual inspection Chest Chest palpation & inspection: normal inspection of the chest and normal palpation of entire chest wall Resp Effort & Inspection: normal respiratory effort Auscultation: Bilateral: Clear to Auscultation Cardio Palpation: normal PMI Rate: regular rate Rhythm: regular rhythm GI Inspection: normal to inspection Auscultation: normal bowel sounds Percussion: normal to percussion Palpation: no hepatosplenomegaly Skin General: no rashes or lesions noted Neuro General: patient alert Extrem General: normal to inspection Psych Affect: normal affect Quality Reporting Tobacco Screening ([facility]) Smoking Status: Never smoker Assessment and Plan Assessment and Plan (1) Irritable bowel syndrome with diarrhea: Status: Chronic Plan - Dr. Ryan Friend, DO: It sounds as if most of her symptoms are from IBS associated with diarrhea as her previous diagnosis dates. (2) GERD (gastroesophageal reflux disease): Status: Chronic Plan - Dr. Ryan Friend, DO: She should have her upper GI tract evaluate for Ryan's esophagus. And if there is any needs to change medicines or maintain the medicine she is currently on. I have re-examined the patient. There are no clinical changes since date of exam.
--- NOTE | 2021-09-11 08:45 | IMM_PTH ---
PATIENT: NOAH COOPER LOC: EN U#:[id number] AGE/SX: 31/F ROOM: RE09/11/[address]: Dr. Connor Kramer DO : 1990 BED: DIS: 09/11/2021 SPEC #: [id number] RECD: 09/11/21 13:11 STATUS: DORCAS REQ #: [id number] YARI: 09/11/21 08:[address]: Connor Kramer DEPT: IMMUNOHISTOCHEMISTRY RECD BY: Mechelle Feliciano ENTERED: 09/11/21 13:12 SP TYPE: IMMUNO OTHR DR: Dr. Mehdi Rivera MD Tissues: B - Stomach, NOS C - Esophagus, NOS Procedures: H Pylori (initial) P53 (initial) KI-67 (add) PHYSICIAN & INSTITUTION [place] [id number] SPECIMEN INFORMATION: Tissue Source: B ? Antrum biopsy, C ? Distal esophagus biopsy Clinical Info: Irritable bowel syndrome, diarrhea, GERD Specimen Number: [id number] B & C CPT code: 15564 x2, 42526 METHODOLOGY: Deparaffinized sections of prefer/formalin-fixed tissue or PAP/DQ stained slides are incubated with monoclonal/polyclonal antibodies/oligonucleotide probes. Localization is made via biotin free immunoperoxidase method. Appropriate controls are performed and reacted as expected. Results on target cell population are indicated in the following table: RESULTS: ANTIBODY / CLONE RESULT Block B H Pylori (polyclonal) negative Block C P53 (DO-7) negative Ki-67 (30-9) positive, low These tests were developed and their performance characteristics determined by [facility]. They may not have been cleared or approved by the U.S. Food and Drug Administration. The FDA has determined that such clearance or approval is not necessary. The above immunohistochemical/dualISH markers are ordered and reviewed by the pathologist. INTERPRETATION: B. Antrum biopsy: Negative for Helicobacter pylori organisms. C. Distal esophagus, biopsy: Negative for dysplasia. SJ:hector 09/12/2021
--- NOTE | 2021-09-11 09:06 | OP.EGD_ITS ---
Patient Name: Christina Montez Procedure Date: 09/11/2021 8:43 AM Date of : 1990 Age: 31 Procedure: Upper GI endoscopy Indications: Epigastric abdominal pain, Functional Dyspepsia, Heartburn Providers: Connor Kramer DO Medicines: See the Anesthesia note for documentation of the administered medications Patient Profile: This is a 31 year old female. Refer to note in patient chart for documentation of history and physical. Patient has symptoms of acute abdominal cramping and acute abdominal distention. Complications: No immediate complications. Procedure: Pre-Anesthesia Assessment: - Prior to the procedure, a History and Physical was performed, and patient medications and allergies were reviewed. The risks and benefits of the procedure and the sedation options and risks were discussed with the patient. All questions were answered and informed consent was obtained. Patient identification and proposed procedure were verified by the physician in the pre-procedure area. Mental Status Examination: alert and oriented. Airway Examination: normal oropharyngeal airway and neck mobility. Respiratory Examination: clear to auscultation. CV Examination: normal. Prophylactic Antibiotics: The patient does not require prophylactic antibiotics. Prior Anticoagulants: The patient has taken no previous anticoagulant or antiplatelet agents. ASA Grade Assessment: II - A patient with mild systemic disease. After reviewing the risks and benefits, the patient was deemed in satisfactory condition to undergo the procedure. The anesthesia plan was to use moderate sedation / analgesia (conscious sedation). Immediately prior to administration of medications, the patient was re-assessed for adequacy to receive sedatives. The heart rate, respiratory rate, oxygen saturations, blood pressure, adequacy of pulmonary ventilation, and response to care were monitored throughout the procedure. The physical status of the patient was re-assessed after the procedure. After obtaining informed consent, the endoscope was passed under direct vision. Throughout the procedure, the patient's blood pressure, pulse, and oxygen saturations were monitored continuously. The gastroscope was introduced through the mouth, and advanced to the second part of duodenum. The upper GI endoscopy was accomplished without difficulty. The patient tolerated the procedure well. Moderate Sedation: Moderate (conscious) sedation was personally administered by an anesthesia professional. The following parameters were monitored: oxygen saturation, heart rate, blood pressure, and response to care. Total physician intraservice time was 15 minutes. Scope In: 8:53:28 AM Scope Out: 9:02:10 AM Total Procedure Duration Time 0 hours 8 minutes 42 seconds Findings: LA Grade A (one or more mucosal breaks less than 5 mm, not extending between tops of 2 mucosal folds) esophagitis with no bleeding was found 34 to 35 cm from the incisors. Biopsies were taken with a cold forceps for histology. Verification of patient identification for the specimen was done. Estimated blood loss was minimal. Localized mild inflammation characterized by congestion (edema) and erythema was found in the gastric antrum. Biopsies were taken with a cold forceps for histology. Verification of patient identification for the specimen was done. Estimated blood loss was minimal. The second portion of the duodenum was normal. Biopsies were taken with a cold forceps for histology. Verification of patient identification for the specimen was done. Estimated blood loss was minimal. Impression: - LA Grade A reflux esophagitis. Biopsied. - Gastritis. Biopsied. - Normal second portion of the duodenum. Biopsied. Recommendation: - Discharge patient to home. - Resume previous diet. - Continue present medications. - Await pathology results. - Repeat upper endoscopy in 1 year for surveillance based on pathology results. - Return to GI office in 2 weeks. Procedure Code(s): --- Professional --- 82998, Esophagogastroduodenoscopy, flexible, transoral; with biopsy, single or multiple CPT copyright 2017 [employer]. All rights reserved. The codes documented in this report are preliminary and upon patient support associate review may be revised to meet current compliance requirements. Connor Kramer DO 09/11/2021 9:06:16 AM This report has been signed electronically. Number of Addenda: 1 Note Initiated On: 09/11/2021 8:43 AM Addendum Number: 1 Addendum Date: 06/17/2022 6:59:32 AM MAC was used instead of moderate sedation for the patient. Connor Kramer DO 06/17/2022 6:59:36 AM This report has been signed electronically.
--- NOTE | 2021-09-11 09:57 | OP.COLON_ITS ---
Patient Name: Christina Montez Procedure Date: 09/11/2021 9:05 AM Date of : 1990 Age: 31 Procedure: Colonoscopy Indications: Chronic diarrhea, Clinically significant diarrhea of unexplained origin Providers: Connor Kramer DO Medicines: See the Anesthesia note for documentation of the administered medications Patient Profile: This is a 31 year old female. Refer to note in patient chart for documentation of history and physical. Patient has symptoms of acute abdominal cramping and acute abdominal distention. Last Colonoscopy: 10 years ago. Complications: No immediate complications. Procedure: Pre-Anesthesia Assessment: - Prior to the procedure, a History and Physical was performed, and patient medications and allergies were reviewed. The risks and benefits of the procedure and the sedation options and risks were discussed with the patient. All questions were answered and informed consent was obtained. Patient identification and proposed procedure were verified by the physician in the pre-procedure area. Mental Status Examination: alert and oriented. Airway Examination: normal oropharyngeal airway and neck mobility. Respiratory Examination: clear to auscultation. CV Examination: normal. Prophylactic Antibiotics: The patient does not require prophylactic antibiotics. Prior Anticoagulants: The patient has taken no previous anticoagulant or antiplatelet agents. ASA Grade Assessment: II - A patient with mild systemic disease. After reviewing the risks and benefits, the patient was deemed in satisfactory condition to undergo the procedure. The anesthesia plan was to use moderate sedation / analgesia (conscious sedation). Immediately prior to administration of medications, the patient was re-assessed for adequacy to receive sedatives. The heart rate, respiratory rate, oxygen saturations, blood pressure, adequacy of pulmonary ventilation, and response to care were monitored throughout the procedure. The physical status of the patient was re-assessed after the procedure. After I obtained informed consent, the scope was passed under direct vision. Throughout the procedure, the patient's blood pressure, pulse, and oxygen saturations were monitored continuously. The Colonoscope was introduced through the anus and advanced to the terminal ileum. The colonoscopy was performed without difficulty. The patient tolerated the procedure well. The quality of the bowel preparation was good. Moderate Sedation: Moderate (conscious) sedation was administered by the endoscopy nurse and supervised by the endoscopist. The patient's oxygen saturation, heart rate, blood pressure and response to care were monitored. Total physician intraservice time was 15 minutes. Scope In: 9:08:48 AM Scope Withdrawal Time 0 hours 9 minutes 12 seconds Scope Out: 9:22:27 AM Total Procedure Duration Time 0 hours 13 minutes 39 seconds Findings: The perianal and digital rectal examinations were normal. An area of mildly congested mucosa was found in the sigmoid colon. There was mild spasm in the sigmoid colon. Four biopsies were taken every 10 cm with a cold large-capacity forceps from the ascending colon, right colon, left colon, transverse colon, right transverse colon, left transverse colon, descending colon, sigmoid colon and rectum for evaluation of microscopic colitis. These biopsy specimens were sent to Pathology. Verification of patient identification for the specimen was done. Estimated blood loss was minimal. A localized area of the terminal ileum was congested. Biopsies were taken with a cold forceps for histology. Estimated blood loss: none. Impression: - Congested mucosa in the sigmoid colon. - Mild colonic spasm consistent with irritable bowel syndrome. Biopsied. - Congested mucosa in the terminal ileum. Biopsied. Recommendation: - Discharge patient to home. - Resume previous diet. - Return to my office in 2 weeks. - Repeat colonoscopy in 5 years for surveillance based on pathology results. - Continue present medications. Procedure Code(s): --- Professional --- 26343, Colonoscopy, flexible; with biopsy, single or multiple G0500, Moderate sedation services provided by the same physician or other qualified health medical care manager performing a gastrointestinal endoscopic service that sedation supports, requiring the presence of an independent trained observer to assist in the monitoring of the patient's level of consciousness and physiological status; initial 15 minutes of intra-service time; patient age 5 years or older (additional time may be reported with 00570, as appropriate) CPT copyright 2017 [employer]. All rights reserved. The codes documented in this report are preliminary and upon dance studio manager review may be revised to meet current compliance requirements. Connor Kramer DO 09/11/2021 9:56:41 AM This report has been signed electronically. Number of Addenda: 1 Note Initiated On: 09/11/2021 9:05 AM Addendum Number: 1 Addendum Date: 06/17/2022 6:59:46 AM MAC was used instead of moderate sedation for the patient. Connor Kramer DO 06/17/2022 6:59:51 AM This report has been signed electronically.
== END 2021-09-11 10:11 | disposition home or self-care (01) ==
LOC: EN 07:41 → AC 07:43
PROVIDERS: Anesthesiology; PCP Internal Medicine; Referring Provider Internal Medicine; Visit Provider Internal Medicine Gastroenterology
PROC: 0DJD8ZZ Inspection of Lower Intestinal Tract, Via Natural or Artificial Opening Endoscopic (ICD-10-PCS; CPT 45378; principal; 2021-09-11 08:40)
DX: K58.0 Irritable bowel syndrome with diarrhea (principal); K29.70 Gastritis, unspecified, without bleeding; K21.00 Gastro-esophageal reflux disease with esophagitis, without bleeding; F41.9 Anxiety disorder, unspecified; E03.9 Hypothyroidism, unspecified
CPT/HCPCS: 43239; 45380; 81025; 88305; 88313; 88341; 88342; J7120; J2405

== ENCOUNTER 2022-09-24 07:19 | Day surgery (SDC) | payer OTHER, SELFPAY ==
[2022-09-24 07:39] VITALS: BP 102/68; PULSE 63; RESP 16; TEMP 36.8; O2SAT 99; BMI 21.3
[2022-09-24] MEDS: Lactated Ringers 1,000 ML 15 ML IV (07:51)
[2022-09-24 07:56] LABS: Internal QC Validated? YES +Cl - CLEAR BKGD; Pregnancy, Urine Negative Negative
--- NOTE | 2022-09-24 08:15 | IMM_PTH ---
PATIENT: NOAH COOPER LOC: EN U#:[id number] AGE/SX: 32/F ROOM: RE09/24/[address]: Dr. Connor Kramer DO : 1990 BED: DIS: 09/24/2022 SPEC #: [id number] RECD: 09/25/22 14:47 STATUS: DORCAS REQ #: [id number] YARI: 09/24/22 08:[address]: Connor Kramer DEPT: IMMUNOHISTOCHEMISTRY RECD BY: Mechelle Feliciano ENTERED: 09/25/22 14:47 SP TYPE: IMMUNO OTHR DR: Dr. Mehdi Rivera MD Tissues: B - Stomach, NOS A - Esophageal mucous membrane Procedures: H Pylori (initial) P53 (initial) KI-67 (add) PHYSICIAN & INSTITUTION [place] [id number] SPECIMEN INFORMATION: Tissue Source: A ? Distal esophagus, B ? Gastric antrum Clinical Info: Ryan?s esophagus Specimen Number: [id number] A & B CPT code: 83387 x2, 08496 METHODOLOGY: Deparaffinized sections of prefer/formalin-fixed tissue or PAP/DQ stained slides are incubated with monoclonal/polyclonal antibodies/oligonucleotide probes. Localization is made via biotin free immunoperoxidase method. Appropriate controls are performed and reacted as expected. Results on target cell population are indicated in the following table: RESULTS: ANTIBODY / CLONE RESULT Block A P53 (DO-7) negative Ki-67 (30-9) positive, low Block B H Pylori (polyclonal) negative These tests were developed and their performance characteristics determined by [facility]. They may not have been cleared or approved by the U.S. Food and Drug Administration. The FDA has determined that such clearance or approval is not necessary. The above immunohistochemical/dualISH markers are ordered and reviewed by the Pathologist. INTERPRETATION: A. Distal esophagus, biopsy: No evidence of dysplasia. B. Gastric antrum, biopsy: Negative for Helicobacter pylori organisms. AM:hector 09/29/2022
--- NOTE | 2022-09-24 08:15 | EGD_PTH ---
PATIENT: NOAH COOPER LOC: EN U#:[id number] AGE/SX: 32/F ROOM: RE09/24/[address]: Dr. Connor Kramer DO : 1990 BED: DIS: 09/24/2022 SPEC #: [id number] RECD: 09/24/22 15:09 STATUS: DORCAS REQ #: [id number] YARI: 09/24/22 08:[address]: Connor Kramer DEPT: SURGICAL PATHOLOGY RECD BY: Sis Wan ENTERED: 09/25/22 13:01 SP TYPE: EGD BIOPSY OT DR: Dr. Mehdi Rivera MD Tissues: A - Esophagus, NOS B - Gastric mucous membrane Procedures: Special Stain Group II Surgery Specimen Level IV Alcian Blue/PAS (control) HEADER OPERATION: E[place] ([facility] [place] PRE-OP DIAGNOSIS: Ryan?s esophagus TISSUE SUBMITTED: A ? Distal esophagus biopsy, B ? Gastric antrum biopsy for H. pylori MICROSCOPIC DIAGNOSIS A. Distal esophagus, biopsy: Gastroesophageal junction with chronic inflammation. Goblet cell metaplasia consistent with Ryan?s esophagus. No evidence of dysplasia. See comment. B. Gastric antrum, biopsy: Mild chronic gastritis. See comment. AM:hector 09/28/2022 COMMENT A. Immunohistochemistry ([id number]) for P53 and Ki-67 will be performed and results will be reported separately. Alcian blue/PAS stain with matched control supports the above diagnosis. B. The results of immunohistochemistry for Helicobacter pylori will be reported separately ([id number]). MICROSCOPIC DESCRIPTION Slides are reviewed. GROSS DESCRIPTION A - Received in fixative is one container labeled with the patient's name and designated ?distal esophagus biopsy. The specimen consists of multiple irregular fragments of light enw soft tissue that in aggregate measure 1 x 0.5 x 0.1 cm. The specimen is totally submitted in one cassette. B - Received in fixative is one container labeled with the patient's name and designated gastric antrum. The specimen consists of two irregular fragments of light new soft tissue that in aggregate measure 0.6 x 0.3 x 0.1 cm. The specimen is totally submitted in one cassette. / AM:hector 09/25/2022 TC:3 CPT: 34551 x2, 22834
--- NOTE | 2022-09-24 08:32 | PCM.HP.BLA ---
History and Physical Date of Admission: 09/24/22 Details: NOAH COOPER, is a 31 F who presents to the office today for 3 month f/u GERD, Ryan's esophagus, IBS-D GERD/Ryan's -- Completing 3 mos of BID dosing of PPI,tomorrow she starts pantoprazole 40 mg QAM. Used to have chronic epigastric and retrosternal burning, no longer a problem. No nausea or vomiting. No dysphagia. IBS-D -- diarrhea continues to be much better than when she first established with us in 08/2021. She thinks she has some food sensitivities. She reports a couple of days of diarrhea at start of menses and at ovulation, but less severe than before treatment for GERD, it doesn't disrupt her life, she takes Imodium w/ good effect. No melena or hematochezia. No significant abd pain other than cramping related to diarrhea. EGD and colonoscopy performed 09/11/21: EGD ? LA Grade A reflux esophagitis. Gastritis. Biopsy -? Antrum, Mild gastritis. Distal esophagus, changes consistent with Ryan's esophagus and inflammation. Ki-67 positive. Colonoscopy ? Congested mucosa in sigmoid colon and terminal ileum. Mild colonic spasm consistent with IBS. ROS Const Constitutional: Positive for fatigue ENT ENT: No difficulty swallowing Gastro GI: Positive for diarrhea and heartburn; No abdominal pain, belching, bloating, change in bowel habits, change in stool character, coffee ground emesis, constipation, cramping, difficulty swallowing, feeling full early, excessive flatus, incontinent of stools, Vomiting blood/hematemesis, Blood in stool, loose stools, Black,tarry stools, nausea/dyspepsia, pain with swallowing, vomiting or other Musc Musculoskeletal: Positive for numbness; No joint pain Skin Skin: No yellowing of the eye or itchy eyes Neuro Neurology: Positive for numbness Psych Psychiatric: Positive for anxiety and No depression Endo Endocrine: Positive for fatigue Aller/Imm Allergy/Immunologic: No itchy eyes Clyde/Lymp Hematologic/Lymphatic: No easy bleeding or easy bruising Exam Const General: cooperative, healthy appearing, well developed and well groomed Eyes Conjunctivae: conjunctivae normal Sclera: sclerae normal Resp Effort & Inspection: normal respiratory effort GI Inspection: normal to inspection Extrem General: no pedal edema Quality Reporting Tobacco Screening ([facility] 138) Smoking Status: Never smoker Assessment and Plan Assessment and Plan (1) GERD (gastroesophageal reflux disease): ?Status:?Chronic ?Plan - Lyndsey Estevez GREASE REFINING SUPERVISOR, GREASE REFINING SUPERVISOR-C: Acid reflux now well controlled. Pantoprazole 40 mg QAM indefinitely due to Ryan's. Call or f/u if reflux returns on the once a day dose. (2) Barretts esophagus: ?Status:?Acute ?Plan - Lyndsey Estevez GREASE REFINING SUPERVISOR, GREASE REFINING SUPERVISOR-C: Update EGD at one yr after diagnosis of Ryan's which is September. f/u 2 wks after endoscopy to discuss biopsy results. (3) Irritable bowel syndrome with diarrhea: ?Status:?Chronic ?Plan - Lyndsey Estevez GREASE REFINING SUPERVISOR, GREASE REFINING SUPERVISOR-C: Less bothersome now that acid reflux is controlled. She declines treatment for the intermittent diarrhea that is mostly related to menses, and managed with prn Imodium. Coding Level of Care Code Off vis,est,level 3 Diagnoses GERD (gastroesophageal reflux disease)? K21.9 Barretts esophagus? K22.70 Irritable bowel syndrome with diarrhea? K58.0 I have examined the patient and the H&P has been reviewed. There are no clinical changes since date of exam.
[2022-09-24 08:50] VITALS: BP 101/51; BP 102/68; PULSE 72; RESP 14; TEMP 36.6; O2SAT 100
--- NOTE | 2022-09-24 08:50 | OP.EGD_ITS ---
Patient Name: Christina Montez Procedure Date: 09/24/2022 8:32 AM Date of : 1990 Age: 32 Procedure: Upper GI endoscopy Indications: Follow-up of Ryan's esophagus Providers: Connor Kramer DO Referring MD: Mehdi Rivera MD Medicines: Monitored Anesthesia Care Patient Profile: This is a 32 year old female. Refer to note in patient chart for documentation of history and physical. Patient has symptoms of chronic heartburn. Complications: No immediate complications. Procedure: Pre-Anesthesia Assessment: - Prior to the procedure, a History and Physical was performed, and patient medications and allergies were reviewed. The risks and benefits of the procedure and the sedation options and risks were discussed with the patient. All questions were answered and informed consent was obtained. Patient identification and proposed procedure were verified by the physician. Mental Status Examination: normal. Prophylactic Antibiotics: The patient does not require prophylactic antibiotics. Prior Anticoagulants: The patient has taken no previous anticoagulant or antiplatelet agents. ASA Grade Assessment: II - A patient with mild systemic disease. After reviewing the risks and benefits, the patient was deemed in satisfactory condition to undergo the procedure. The anesthesia plan was to use monitored anesthesia care (MAC). Immediately prior to administration of medications, the patient was re-assessed for adequacy to receive sedatives. The heart rate, respiratory rate, oxygen saturations, blood pressure, adequacy of pulmonary ventilation, and response to care were monitored throughout the procedure. The physical status of the patient was re-assessed after the procedure. After obtaining informed consent, the endoscope was passed under direct vision. Throughout the procedure, the patient's blood pressure, pulse, and oxygen saturations were monitored continuously. The Endoscope was introduced through the mouth, and advanced to the second part of duodenum. The upper GI endoscopy was accomplished without difficulty. The patient tolerated the procedure well. Scope In: 8:40:56 AM Scope Out: 8:44:24 AM Total Procedure Duration Time 0 hours 3 minutes 28 seconds Findings: There were esophageal mucosal changes consistent with Ryan's esophagus present in the lower third of the esophagus. The maximum longitudinal extent of these mucosal changes was 2 cm in length. Mucosa was biopsied with a cold forceps for histology in a targeted manner at intervals of 1 cm in the lower third of the esophagus. One specimen bottle was sent to pathology. Verification of patient identification for the specimen was done. Estimated blood loss was minimal. Patchy mildly erythematous mucosa without bleeding was found in the gastric antrum. Biopsies were taken with a cold forceps for histology. Verification of patient identification for the specimen was done. Estimated blood loss was minimal. The second portion of the duodenum was normal. Impression: - Esophageal mucosal changes consistent with Ryan's esophagus. Biopsied. - Erythematous mucosa in the antrum. Biopsied. - Normal second portion of the duodenum. Recommendation: - Discharge patient to home. - Resume previous diet. - Continue present medications. - Await pathology results. - Repeat upper endoscopy in 1 year for surveillance. Procedure Code(s): --- Professional --- 80271, Esophagogastroduodenoscopy, flexible, transoral; with biopsy, single or multiple CPT copyright 2017 [employer]. All rights reserved. The codes documented in this report are preliminary and upon manager contract review may be revised to meet current compliance requirements. Connor Kramer DO 09/24/2022 8:49:43 AM This report has been signed electronically. Number of Addenda: 0 Note Initiated On: 09/24/2022 8:32 AM
--- NOTE | 2022-09-24 08:51 | OP.CCLET_ITS ---
09/24/2022 Mehdi Rivera MD [address] [place] [address] [place] [address] Re : Upper GI endoscopy procedure for Christina Montez Dear Dr. Rivera This procedure was performed on September. My impressions and recommendations are as follows: Impressions : - Esophageal mucosal changes consistent with Ryan's esophagus. Biopsied. - Erythematous mucosa in the antrum. Biopsied. - Normal second portion of the duodenum. Recommendations : - Discharge patient to home. - Resume previous diet. - Continue present medications. - Await pathology results. - Repeat upper endoscopy in 1 year for surveillance. My findings are described in the full procedure note, which is enclosed. If I can be of further assistance, please feel free to contact me at . Sincerely, Connor Kramer, 09/24/2022 8:49:43 AM This report has been signed electronically.
[2022-09-24 08:55] VITALS: BP 102/68; BP 96/56; PULSE 74; RESP 14; O2SAT 100
[2022-09-24 09:00] VITALS: BP 102/68; BP 96/60; PULSE 76; RESP 14; O2SAT 100
[2022-09-24 09:05] VITALS: BP 102/68; BP 94/58; PULSE 75; RESP 14; TEMP 36.6; O2SAT 100
[2022-09-24 09:36] VITALS: BP 102/68
== END 2022-09-24 09:38 | disposition home or self-care (01) ==
LOC: EN 07:19 → AC 07:21
PROVIDERS: Anesthesiology; PCP Internal Medicine; Referring Provider Internal Medicine; Visit Provider Internal Medicine Gastroenterology
PROC: 0DJ08ZZ Inspection of Upper Intestinal Tract, Via Natural or Artificial Opening Endoscopic (ICD-10-PCS; CPT 43235; principal; 2022-09-24 08:10)
DX: K22.70 Barrett's esophagus without dysplasia (principal); K31.89 Other diseases of stomach and duodenum; F41.9 Anxiety disorder, unspecified; E03.9 Hypothyroidism, unspecified; K21.9 Gastro-esophageal reflux disease without esophagitis; Z79.899 Other long term (current) drug therapy
CPT/HCPCS: 43239; 81025; 88305; 88313; 88341; 88342; J7120; J2405

== ENCOUNTER 2022-09-29 12:48 | Emergency (ER) | payer OTHER, SELFPAY ==
[2022-09-29 12:49] VITALS: BP 154/96; PULSE 118; RESP 16; TEMP 36.4; O2SAT 98; BMI 20.6
--- NOTE | 2022-09-29 13:01 | EDS_ITS ---
HPI <JESUS Sosa - Last Filed: 09/29/22 16:52> Narrative Narrative: Patient presents today with epigastric burning pain and gastric reflux. She states she had an endoscopy with Dr. Kramer on for Ryan's esophagus and had a biopsy done. She states she did not have her pantoprazole filled and has been out of it for a week. She states the reflux is so painful that she has not been able to eat or drink much over the past few days and has lost a few pounds due to not eating. Patient denies chest pain, shortness of breath, diarrhea, vomiting, and fever. PFSH <JESUS Sosa - Last Filed: 09/29/22 16:52> [facility] Medical History (Updated 09/29/22 @ 14:[address] Shukri Albrecht, ) Anxiety Ryan esophagus Cancer Heartburn History of IBS History of renal disease Hypothyroidism Migraine headache Non-smoker Thyroid disease Home Medications levothyroxine 75 mcg tablet 75 mcg PO DAILY 02/17/19 [History Last Taken Unknown] pantoprazole 40 mg tablet,delayed release 40 mg PO BID #180 tabs 11/10/21 [Rx Last Taken Unknown] citalopram 20 mg tablet 20 mg PO DAILY #90 tabs 09/29/22 [Rx Last Taken Unknown] pantoprazole 40 mg tablet,delayed release 40 mg PO BID 30 days #60 tabs 09/29/22 [Rx Last Taken Unknown] sucralfate 1 gram tablet (Carafate) 1 g PO BID #14 tabs 09/29/22 [Rx Last Taken Unknown] Allergy/AdvReac Type Severity Reaction Status Date / Time No Known Allergies Allergy Verified 09/29/22 12:51 Family History Sister Diabetes Surgical History History of partial thyroidectomy Hx of colonoscopy Social History Smoking Status: Never smoker alcohol intake: never substance use type: does not use what type of physical activity do you participate in: running frequency: 3-4 times per week ROS <JESUS Sosa - Last Filed: 09/29/22 16:52> ROS ED Constitutional Constitutional ED: Denies chills, fever(s) or sweats Eyes Eyes: Denies blurry vision or change in vision ENT ENT ED: Denies rhinorrhea or sore throat Cardiovascular Cardiovascular: Denies chest pain, palpitations or racing heartbeat Respiratory/Chest Respiratory/Chest: Denies cough, dyspnea or dyspnea on exertion Gastrointestinal Gastrointestinal: Reports abdominal pain; Denies constipation, diarrhea, nausea or vomiting Genitourinary Genitourinary ED: Denies dysuria, hematuria or urinary frequency Musculoskeletal Musculoskeletal: Reports back pain; Denies myalgias or neck pain Integumentary Denies abscess, Abrasions or rash Neurologic Neurologic: Denies headache(s), paresthesias or weakness Psychiatric Psychiatric: Denies anxiety, depression or suicidal ideation EXAM <JESUS Sosa - Last Filed: 09/29/22 16:52> Physical Exam Const Vital Signs: 09/29/22 12:49 09/29/22 15:09 Temperature 97.5 F L Temperature Source Temporal Pulse Rate 118 H Respiratory Rate 16 Blood Pressure 154/96 H 117/71 Blood Pressure Mean 115 Pulse Ox 98 Oxygen Delivery Method Room Air Positive well nourished and well developed General Appearance ED: well developed and NAD HEENT Reports moist mucous membranes Negative for trauma Eyes PERRL and EOMs intact bilaterally Neck no lymphadenopathy and supple Chest Wall inspection of chest normal Resp normal respiratory effort and clear to auscultation bilaterally Cardio regular rate, regular rhythm and no murmurs GI non-distended and no masses GI Narrative: Patient has mild tenderness to palpation to her epigastric region. Palpation: soft Extremity normal to inspection Neuro oriented x3, CN's II-XII intact bilaterally and no sensory deficits noted Sensorium / Orientation: alert Motor Exam: strength 5/5 throughout Psych mental status grossly normal Skin no rashes or lesions noted, no wounds and skin turgor normal <Dr. Shukri Albrecht DO - Last Filed: 09/29/22 14:49> Physical Exam Const Vital Signs: 09/29/22 12:49 09/29/22 15:09 Temperature 97.5 F L Temperature Source Temporal Pulse Rate 118 H Respiratory Rate 16 Blood Pressure 154/96 H 117/71 Blood Pressure Mean 115 Pulse Ox 98 Oxygen Delivery Method Room Air MDM <JESUS Sosa - Last Filed: 09/29/22 16:52> MDM MDM Narrative Medical decision making narrative: Patient has been given a liter of fluids, GI cocktail, and pantoprazole. Upon reexamination patient states she is feeling much better and feels like she can go home with a prescription for pantoprazole and Carafate. Patient was discussed with Dr. Kramer and he is comfortable with plan. I have personally performed a face to face assessment of the patient and have reviewed the TRES Note. I performed a substantive portion of the visit including all aspects of the following. My zamora findings include: History is [patient presents with complaint of painful swallowing and heartburn symptoms. Patient had an EGD 5 days ago and had run out of her pantoprazole prior to that and was hoping to get a refill but never got a refill. Patient having painful swallowing and nausea but has not vomited. She complains of up per abdominal discomfort. She denies hematemesis. She denies black stool. She was told that there was an ulcer but she is not sure if there was an ulcer in her stomach or her esophagus. She does have history of Ryan's esophagitis. Patient denies fevers.] Exam is [HEENT-PERRLA, EOMI. Cranial nerves II through XII grossly intact. TMs clear. Mucous membranes moist. No adenopathy. Cardiovascular-regular rate and rhythm without murmur or ectopy Lungs-clear to auscultation, chest wall stable without crepitus or subcu emphysema Abdomen-normoactive bowel sounds, soft. Patient has some mild tenderness over the epigastric region. There is no rebound, rigidity, or peritoneal signs. Extremities-intact ?4, normal range of motion, normal pulses, atraumatic] Medical Decison Making [patient had an IV line established and was given a liter normal saline fluid bolus. Patient was given Protonix bolus and a GI cocktail. She felt markedly improved after treatment. We will write her prescription for her pantoprazole prescription and also I will add Carafate. We attempted to contact Dr. Kramer her GI specialist unsuccessfully as of yet. Patient advised to return if worsening pain, fever, vomiting, or condition should worsen anyway. At this time patient not having bloody stools and she is hemodynamically stable. I do not feel any imaging is indicated.] Other additions or changes: [None] Lab Data Attestation: I reviewed the patient's lab results. Lab results narrative: Elevated neutrophils, decreased lymphocytes. BUN 7. Labs: Laboratory Results - last 24 hr 09/29/22 09/29/22 13:26 13:26 WBC 7.5 RBC 4.77 Hgb 14.7 Hct 42.8 MCV 89.7 MCH 30.8 MCHC 34.3 RDW Std Deviation 39.8 RDW Coeff of Jose 12.1 Plt Count 285 MPV 9.6 Immature Gran % (Auto) 0.100 Neut % (Auto) 77.3 H Lymph % (Auto) 16.7 L Ceiba % (Auto) 5.4 Eos % (Auto) 0.0 Baso % (Auto) 0.5 Absolute Neuts (auto) 5.8 Absolute Lymphs (auto) 1.26 Nucleated RBC % 0 Sodium 137 Potassium 4.3 Chloride 105 Carbon Dioxide 27.0 Anion Gap 5 BUN 6 L Creatinine 0.77 Estim Creat Clear Calc 94.36 Est GFR (MDRD) Af Amer 110 Est GFR (MDRD) Non-Af 91 BUN/Creatinine Ratio 7.8 L Glucose 102 Calcium 10.0 Lipase 66 L <Dr. Shukri Albrecht, DO - Last Filed: 09/29/22 14:49> MDM MDM Narrative Medical decision making narrative: Patient has been given a liter of fluids, GI cocktail, and pantoprazole. Upon reexamination patient states she is feeling much better and feels like she can go home with a prescription for pantoprazole. I have personally performed a face to face assessment of the patient and have reviewed the TRES Note. I performed a substantive portion of the visit including all aspects of the following. My zamora findings include: History is [patient presents with complaint of painful swallowing and heartburn symptoms. Patient had an EGD 5 days ago and had run out of her pantoprazole prior to that and was hoping to get a refill but never got a refill. Patient having painful swallowing and nausea but has not vomited. She complains of upper abdominal discomfort. She denies hematemesis. She denies black stool. She was told that there was an ulcer but she is not sure if there was an ulcer in her stomach or her esophagus. She does have history of Ryan's esophagitis. Patient denies fevers.] Exam is [HEENT-PERRLA, EOMI. Cranial nerves II through XII grossly intact. TMs clear. Mucous membranes moist. No adenopathy. Cardiovascular-regular rate and rhythm without murmur or ectopy Lungs-clear to auscultation, chest wall stable without crepitus or subcu emphysema Abdomen-normoactive bowel sounds, soft. Patient has some mild tenderness over the epigastric region. There is no rebound, rigidity, or peritoneal signs. Extremities-intact ?4, normal range of motion, normal pulses, atraumatic] Medical Decison Making [patient had an IV line established and was given a liter normal saline fluid bolus. Patient was given Protonix bolus and a GI cocktail. She felt markedly improved after treatment. We will write her prescription for her pantoprazole prescription and also I will add Carafate. We attempted to contact Friend her GI specialist unsuccessfully as of yet. Patient advised to return if worsening pain, fever, vomiting, or condition should worsen anyway. At this time patient not having bloody stools and she is hemodynamically stable. I do not feel any imaging is indicated.] Other additions or changes: [None] Lab Data Labs: Laboratory Results - last 24 hr 09/29/22 09/29/22 13:26 13:26 WBC 7.5 RBC 4.77 Hgb 14.7 Hct 42.8 MCV 89.7 MCH 30.8 MCHC 34.3 RDW Std Deviation 39.8 RDW Coeff of Jose 12.1 Plt Count 285 MPV 9.6 Immature Gran % (Auto) 0.100 Neut % (Auto) 77.3 H Lymph % (Auto) 16.7 L Ceiba % (Auto) 5.4 Eos % (Auto) 0.0 Baso % (Auto) 0.5 Absolute Neuts (auto) 5.8 Absolute Lymphs (auto) 1.26 Nucleated RBC % 0 Sodium 137 Potassium 4.3 Chloride 105 Carbon Dioxide 27.0 Anion Gap 5 BUN 6 L Creatinine 0.77 Estim Creat Clear Calc 94.36 Est GFR (MDRD) Af Amer 110 Est GFR (MDRD) Non-Af 91 BUN/Creatinine Ratio 7.8 L Glucose 102 Calcium 10.0 Lipase 66 L Discharge Plan Triage ED Midlevel Provider: Rocio Velazquez ED Provider: Shukri Albrecht Dx/Rx/DC Orders Clinical Impression: Barretts esophagus, Abdominal pain, GERD (gastroesophageal reflux disease) Instructions: ED GERD (Adult) Prescriptions: New pantoprazole 40 mg tablet,delayed release (DR/EC) 40 mg PO BID 30 Days Qty: 60 0RF sucralfate [Carafate] 1 gram tablet 1 g PO BID Qty: 14 0RF Rx Instructions: Take twice daily with meals. No Action levothyroxine 75 mcg tablet 75 mcg PO DAILY pantoprazole 40 mg tablet,delayed release (DR/EC) 40 mg PO BID Qty: 180 1RF citalopram 20 mg tablet 20 mg PO DAILY Qty: 90 0RF Primary Care Provider: Mehdi Rivera Referrals: Mehdi Rivera MD [Primary Care Provider] - 5-7 Days Activity Restrictions/Additional Instructions: Please follow-up with PCP/Dr. Kramer as needed. Please return for any worsening of your symptoms. Disposition Disposition: Home, Self Care Discharge Date/Time: 09/29/22 15:10
[2022-09-29] MEDS: 0.9% Normal Saline 1,000 ML 999 ML IV (13:24)
[2022-09-29] MEDS: Mag Hydrox/Al Hydrox/Simeth 30 ML UDC PO (13:25)
[2022-09-29 13:36] LABS: Absolute Lymphocyte Count 1.26 X10^3/uL (0.83-4.51); Absolute Neutrophil Count 5.8 X10^3/uL (2.0-7.7); Basophil# 0.04 X10^3/uL; Basophil% 0.5 % (0-1); Hematocrit 42.8 % (37-47); Hemoglobin 14.7 g/dL (12.0-15.0); Lymphocyte # 1.26 X10^3/ul (0.83-4.51); Lymphocyte % 16.7 % (19-41); Mean Corp Hgb Conc 34.3 g/dL (32-36); Mean Corpuscular Hgb 30.8 pg (27.0-32.0); Mean Corpuscular Volume 89.7 fL (81-99); Mean Platelet Vol. 9.6 fl (6.2-12.0); Monocyte# 0.41 X10^3/uL; Monocyte% 5.4 % (0-10); NRBC Flagged by Analyzer 0 % (0-5); Neutrophil # 5.82 X10^3/uL (2.7-7.7); Neutrophil % 77.3 % (47-70); Platelet Count 285 K/mm3 (150-450); RBC Distribution Width CV 12.1 % (11.6-14.6); RBC Distribution Width SD 39.8 fl (35.1-43.9); Red Blood Count 4.77 M/mm3 (4.2-5.4); White Blood Count 7.5 K/mm3 (4.4-11.0)
[2022-09-29 13:46] LABS: Anion Gap 5 (5-15); BUN 6 mg/dL (7-18); BUN/Creat Ratio 7.8 RATIO (10-20); Chloride 105 mmol/L (98-107); Creatinine, Serum 0.77 mg/dL (0.55-1.02); EST Glomerular Filtration Rate 91 mL/min (>60); Est Glom Filt Rate - Afr Amer 110 mL/min (>60); Estimated Creatinine Clearance 94.36 ml/min; Glucose 102 mg/dL (74-106); Lipase 66 U/L (73-393); Potassium 4.3 mmol/L (3.5-5.1); Sodium Level 137 mmol/L (136-145)
[2022-09-29 15:09] VITALS: BP 117/71
== END 2022-09-29 15:10 | disposition home or self-care (01) ==
PROVIDERS: Physician Assistant; Emergency Provider Emergency Medicine; PCP Internal Medicine; Visit Provider Emergency Medicine
DX: K22.70 Barrett's esophagus without dysplasia (principal); R10.9 Unspecified abdominal pain; K21.9 Gastro-esophageal reflux disease without esophagitis
CPT/HCPCS: 80048; 83690; 85025; 96360; 96361; 99284; J7030; J3490

== ENCOUNTER → 2022-11-19 | Outpatient (CLI) | payer OTHER, SELFPAY ==
[2022-11-19 12:02] LABS: Absolute Lymphocyte Count 1.73 X10^3/uL (0.83-4.51); Absolute Neutrophil Count 2.9 X10^3/uL (2.0-7.7); Basophil# 0.05 X10^3/uL; Eosinophil# 0.03 X10^3/uL; Eosinophils% 0.6 % (0-5); Hemoglobin 12.6 g/dL (12.0-15.0); Lymphocyte # 1.73 X10^3/ul (0.83-4.51); Lymphocyte % 33.9 % (19-41); Mean Corp Hgb Conc 32.3 g/dL (32-36); Mean Corpuscular Hgb 29.4 pg (27.0-32.0); Mean Corpuscular Volume 90.9 fL (81-99); Mean Platelet Vol. 9.5 fl (6.2-12.0); Monocyte# 0.36 X10^3/uL; NRBC Flagged by Analyzer 0 % (0-5); Neutrophil # 2.92 X10^3/uL (2.7-7.7); Neutrophil % 57.1 % (47-70); Platelet Count 266 K/mm3 (150-450); RBC Distribution Width SD 39.8 fl (35.1-43.9); Red Blood Count 4.29 M/mm3 (4.2-5.4); White Blood Count 5.1 K/mm3 (4.4-11.0)
[2022-11-19 12:22] LABS: Vitamin B12 632 pg/mL (211-911)
[2022-11-19 12:26] LABS: ALB/GLOB Ratio 1.2 RATIO (0.9-2.4); AST(SGOT) 13 U/L (15-37); Alanine Aminotransfer ALT/SGPT 23 U/L (13-56); Albumin, Serum 3.8 g/dL (3.2-5.0); Alkaline Phosphatase 44 U/L (45-117); Anion Gap 6 (5-15); BUN 7 mg/dL (7-18); BUN/Creat Ratio 8.3 RATIO (10-20); Calcium,Total 9.3 mg/dL (8.5-10.1); Chloride 105 mmol/L (98-107); Creatinine, Serum 0.84 mg/dL (0.55-1.02); EST Glomerular Filtration Rate 82 mL/min (>60); Est Glom Filt Rate - Afr Amer 100 mL/min (>60); Globulin 3.2 g/dL (2.2-4.2); Glucose 106 mg/dL (74-106); Potassium 3.9 mmol/L (3.5-5.1); Sodium Level 141 mmol/L (136-145); Thyroid Stim Hormone (TSH) 0.74 uIU/mL (0.358-3.74)
== END | disposition home or self-care (01) ==
LOC: BIMLAB 11:18
PROVIDERS: PCP Internal Medicine; Referring Provider Nurse Practitioner Family; Visit Provider Nurse Practitioner Family
DX: F41.9 Anxiety disorder, unspecified (principal); E03.9 Hypothyroidism, unspecified; E56.9 Vitamin deficiency, unspecified
CPT/HCPCS: 36415; 80053; 82607; 84443; 85025

== ENCOUNTER → 2024-02-10 | Outpatient (CLI) | payer OTHER, SELFPAY ==
[2024-02-10 16:45] LABS: Absolute Lymphocyte Count 1.99 X10^3/uL (0.83-4.51); Absolute Neutrophil Count 4.9 X10^3/uL (2.0-7.7); Basophil# 0.04 X10^3/uL; Basophil% 0.5 % (0-1); Eosinophil# 0.06 X10^3/uL; Eosinophils% 0.8 % (0-5); Hematocrit 36.9 % (37-47); Hemoglobin 12.1 g/dL (12.0-15.0); Lymphocyte # 1.99 X10^3/ul (0.83-4.51); Lymphocyte % 25.9 % (19-41); Mean Corp Hgb Conc 32.8 g/dL (32-36); Mean Corpuscular Hgb 28.6 pg (27.0-32.0); Mean Corpuscular Volume 87.2 fL (81-99); Mean Platelet Vol. 9.6 fl (6.2-12.0); Monocyte# 0.68 X10^3/uL; Monocyte% 8.8 % (0-10); NRBC Flagged by Analyzer 0 % (0-5); Neutrophil # 4.89 X10^3/uL (2.7-7.7); Neutrophil % 63.6 % (47-70); Platelet Count 317 K/mm3 (150-450); RBC Distribution Width CV 12.5 % (11.6-14.6); Red Blood Count 4.23 M/mm3 (4.2-5.4); White Blood Count 7.7 K/mm3 (4.4-11.0)
[2024-02-10 16:59] LABS: Partial Thromboplast Time 29.1 Seconds (24.1-36.2)
[2024-02-10 17:36] LABS: AST(SGOT) 17 U/L (15-37); Alanine Aminotransfer ALT/SGPT 21 U/L (13-56); Albumin, Serum 3.5 g/dL (3.2-5.0); Alkaline Phosphatase 51 U/L (45-117); Anion Gap 4 (5-15); BUN 11 mg/dL (7-18); BUN/Creat Ratio 15.3 RATIO (10-20); Calcium,Total 8.6 mg/dL (8.5-10.1); Chloride 106 mmol/L (98-107); Creatinine, Serum 0.72 mg/dL (0.55-1.02); EST Glomerular Filtration Rate 98 mL/min (>60); Est Glom Filt Rate - Afr Amer 119 mL/min (>60); Ferritin 34 ng/mL (8-252); Globulin 3.5 g/dL (2.2-4.2); Glucose 89 mg/dL (74-106); Iron 49 ug/dL (50-170); Iron Binding Capacity,Total 313 ug/dL (250-450); LDH 183 U/L (84-246); Potassium 3.7 mmol/L (3.5-5.1); Sodium Level 138 mmol/L (136-145); T4 Total, Thyroxin 7.4 ug/dL (4.8-13.9); Thyroid Stim Hormone (TSH) 0.97 uIU/mL (0.358-3.74)
== END | disposition home or self-care (01) ==
LOC: BIMLAB 14:43
PROVIDERS: PCP Internal Medicine; Referring Provider Nurse Practitioner; Visit Provider Nurse Practitioner
DX: E05.90 Thyrotoxicosis, unspecified without thyrotoxic crisis or storm (principal); R23.3 Spontaneous ecchymoses; L29.9 Pruritus, unspecified; R59.0 Localized enlarged lymph nodes
CPT/HCPCS: 36415; 80053; 82728; 82746; 83540; 83550; 83615; 84436; 84443; 85025; 85610; 85730

== ENCOUNTER → 2025-01-25 | Outpatient (CLI) | payer OTHER, SELFPAY ==
[2025-01-25 13:03] LABS: Absolute Lymphocyte Count 1.75 X10^3/uL (0.83-4.51); Basophil# 0.03 X10^3/uL; Basophil% 0.7 % (0-1); Eosinophil# 0.04 X10^3/uL; Eosinophils% 0.9 % (0-5); Hemoglobin 12.7 g/dL (12.0-15.0); Lymphocyte # 1.75 X10^3/ul (0.83-4.51); Lymphocyte % 41.3 % (19-41); Mean Corp Hgb Conc 33.4 g/dL (32-36); Mean Corpuscular Hgb 29.3 pg (27.0-32.0); Mean Corpuscular Volume 87.8 fL (81-99); Monocyte# 0.43 X10^3/uL; Monocyte% 10.1 % (0-10); NRBC Flagged by Analyzer 0 % (0-5); Neutrophil # 1.98 X10^3/uL (2.7-7.7); Neutrophil % 46.8 % (47-70); Platelet Count 295 K/mm3 (150-450); RBC Distribution Width CV 12.1 % (11.6-14.6); RBC Distribution Width SD 39.1 fl (35.1-43.9); Red Blood Count 4.33 M/mm3 (4.2-5.4); White Blood Count 4.2 K/mm3 (4.4-11.0)
[2025-01-25 14:24] LABS: ALB/GLOB Ratio 1.5 RATIO (0.9-2.4); AST(SGOT) 19 U/L (<=31); Alanine Aminotransfer ALT/SGPT 20 U/L (<=34); Albumin, Serum 4.2 g/dL (3.5-5.0); Alkaline Phosphatase 53 U/L (35-104); Anion Gap 10 (5-15); BUN 15 mg/dL (4-19); Calcium,Total 9.4 mg/dL (7.6-11.0); Carbon Dioxide 24.8 mmol/L (21.0-32.0); Chloride 104 mmol/L (98-108); Cholesterol 188 mg/dL (<=200); EST Glomerular Filtration Rate 98 (>60); Globulin 2.9 g/dL (2.2-4.2); Glucose 84 mg/dL (70-99); High Density Lipoprotein 62 mg/dL; Low Density Lipoprotein Calc. 117 mg/dL; Potassium 4.5 mmol/L (3.3-5.1); Protein, Total 7.1 g/dL (5.9-8.4); Sodium Level 139 mmol/L (133-145); Total Bilirubin 0.32 mg/dL (0.00-1.30); Triglycerides 47 mg/dL; Very Low Density Lipoprotein 9 mg/dL (5-40); cholesterol:hdl ratio screen 3.04
== END | disposition home or self-care (01) ==
LOC: BIMLAB 08:11
PROVIDERS: PCP Internal Medicine; Visit Provider Physician Assistant
DX: Z00.00 Encounter for general adult medical examination without abnormal findings (principal); E03.9 Hypothyroidism, unspecified
CPT/HCPCS: 36415; 80053; 80061; 84443; 85025

== ENCOUNTER → 2025-02-26 | Outpatient (CLI) | payer OTHER, SELFPAY ==
--- NOTE | 2025-02-26 08:36 | BI_ITS ---
EXAM: SCRN MAMM (CAD)W/LES BILAT DATE: 02/26/2025 CLINICAL HISTORY: F, Age 35 y/o , SCREENING BREAST CANCER RISK ASSESSMENT: Has not been calculated. TECHNIQUE: Bilateral screening digital breast tomosynthesis with 2D and 3D images. Computer aided detection. COMPARISON: Prior exam(s) dated none. FINDINGS: TISSUE DENSITY: The breast tissue is extremely dense which lowers the sensitivity of mammography. Small masses could be obscured. Patient may benefit by having a complete bilateral breast ultrasound or MRI examination to exclude underlying masses. Bilateral Breast Mammographic Findings: There is a 6 mm nodular masslike density in the lateral, far posterior aspect of the right breast. Further workup is indicated. There is a 6 mm nodular density in the lateral far posterior aspect of the left breast. Further workup is indicated. A 3 mm density is seen in the superior, middle 3rd aspect of the left breast. A lobulated 8 mm nodular density is seen in the medial, far posterior aspect of the left breast. There are no suspicious masses or architectural distortion in either breast. BI/SCRN MAMM (CAD)W/LES BILAT IMPRESSION: OVERALL FINAL ASSESSMENT: BIRADS 0 Incomplete: Need additional imaging evaluati on and/or prior mammograms for comparison. RECOMMENDATION: Incomplete: Need additional imaging evaluation and/or prior mammograms for comp arison. Patient should return for LM views of the right and left breast as well as spot compression CC and spot compression MLO v iews of the right and left breast masslike densities. An ultrasound will also most likely be needed. A letter with findings and recommendations will be mailed to the patient. Reading Location: [id number]
== END | disposition home or self-care (01) ==
PROVIDERS: PCP Internal Medicine
DX: Z12.31 Encounter for screening mammogram for malignant neoplasm of breast (principal)
CPT/HCPCS: 77063; 77067

== ENCOUNTER → 2025-03-27 | Outpatient (CLI) | payer OTHER, SELFPAY ==
--- NOTE | 2025-03-27 09:03 | US_ITS ---
PROCEDURE: BREAST LIMITED UNILATERAL 03/27/2025 REASON FOR EXAM: ABNORMAL MAMMOGRAM TECHNIQUE: BREAST LIMITED UNILATERAL COMPARISON: Prior mammogram done earlier in the day.. FINDINGS: Right breast ultrasound was targeted to the upper aspect of the right breast.. 2, cysts are seen at the 11 o'clock position of the breast at 3 cm from the nipple. The each measure 3 mm x 3 mm x 3 mm. US/Breast Limited Unilateral IMPRESSION: 2 adjacent 3 mm x 3 mm x 3 mm cyst at the 11 o'clock position of the breast at 3 cm from the nipple. BI-RADS category: 2 Follow-up code: Routine Follow-up Reading Location: [facility]
--- NOTE | 2025-03-27 09:03 | BI_ITS ---
EXAM: DIAG MAMM W/CAD, BILAT 03/27/2025 CLINICAL HISTORY: F, Age 35 y/o , ABNORMAL SCREENING MAMMOGRAM TECHNIQUE: 90 degree lateral and compression spot views of both breasts were obtained. Computer aided detection. COMPARISON: Prior exam(s) dated February 26, 2025.. FINDINGS: TISSUE DENSITY: The breast tissue is extremely dense which lowers the sensitivity of mammography. Bilateral Breast Mammographic Findings: No significant masses, calcifications or other abnormalities are identified. Sonographic correlation recommended. BI/DIAG MAMM W/CAD, BILAT IMPRESSION: Sonographic correlation recommended of both breasts as described. OVERALL FINAL ASSESSMENT BI-RADS 0: INCOMPLETE - NEED ADDITIONAL IMAGING EVALUATION. RECOMMENDATION: Ultrasound Recommended A letter with findings and recommendations will be mailed to the patient. Reading Location: [place] [id number]
--- NOTE | 2025-03-27 09:03 | US_ITS ---
PROCEDURE: BREAST LIMITED UNILATERAL 03/27/2025 REASON FOR EXAM: ABNORMAL MAMMOGRAM TECHNIQUE: BREAST LIMITED UNILATERAL COMPARISON: Prior mammogram done earlier in the day.. FINDINGS: Left breast ultrasound was targeted to the lateral midportion of the left breast.. There is a 7 mm x 5 mm x 3 mm cyst at the 3 o'clock position of the breast at 3 cm from the nipple. There is also evidence of a 4 mm x 4 mm x 3 mm cyst at the 2 o'clock position of the breast at 5 cm from the nipple. US/Breast Limited Unilateral IMPRESSION: Impression: There are 2, subcentimeter cysts in the lateral aspect of the left breast as described. Routine mammographic follow-up recommended. Birads: BI-RADS 2: BENIGN. RECOMMEND ANNUAL MAMMOGRAPHIC SCREENING. Reading Location: [place] [id number]
--- OUTSIDE RECORDS SUMMARY | 2025-03-27 10:12 | XMS RPT_ITS | CCD ---
Author Organization [facility] Care Team Providers Care Steam Conditioner Operator Name Role Phone RAGHUNATHAN, IRLANDA Unavailable Unavailable PHYSICIAN, NONE Unavailable Unavailable RAGHUNATHAN, IRLANDA Unavailable Unavailable PHYSICIAN, NONE Unavailable Unavailable ARASH WHITFIELD Unavailable Unavailable DIANA MARINELLI Unavailable Unavailable NO PRIMARY CARE, MD Unavailable Unavailable ARASH WHITFIELD Unavailable Unavailable DIANA MARINELLI M Unavailable Unavailable NO PRIMARY CARE, MD Unavailable Unavailable ARASH WHITFIELD Unavailable Unavailable DIANA MARINELLI Unavailable Unavailable NO PRIMARY CARE, MD Unavailable Unavailable VIDA THAYER Unavailable Unavai lable DIANA MARINELLI Unavailable Unavailable NO PRIMARY CARE, MD Unavailable Unavailable ARASH WHITFIELD Unavailable Unavailable DIANA MARINELLI M Unavailable Unavailable NO PRIMARY CARE, MD Unavailable Unavailable ARASH WHITFIELD Unavailable Unavailable DIANA MARINELLI M Unavailable Unavailable NO PRIMARY CARE, MD Unavailable Unavailable VIDA THAYER Unavailable Unavai lable DIANA MARINELLI M Unavailable Unavailable NO PRIMARY CARE, MD Unavailable Unavailable MERLE FAULKNER L Unavailable Unavailable DIANA MARINELLI M Unavailable Unavailable NO PRIMARY CARE, MD Unavailable Unavailable MELVI, MERLE T Unavailable Unavailable DIANA MARINELLI M Unavailable Unavailable NO PRIMARY CARE, MD Unavailable Unavailable NO PRIMARY CARE, MD Unavailable Unavailable MELVI, MERLE T Unavailable Unavailable DIANA MARINELLI M Unavailable Unavailable NO PRIMARY CARE, MD Unavailable Unavailable MELVI, MERLE T Unavailable Unavailable DIANA MARINELLI M Unavailable Unavailable NO PRIMARY CARE, MD Unavailable Unavailable JANET ROACH Unavailable Unavailable DIANA MARINELLI M Unavailable Unavailable NO PRIMARY CARE, MD Unavailable Unavailable DIANA MARINELLI M Unavailable Unavailable VIDA THAYER Unavailable Unavai lable NO PRIMARY CARE, MD Unavailable Unavailable DIANA MARINELLI M Unavailable Unavailable EHRVIDA WAGONER Unavailable Unavai lable NO PRIMARY CARE, MD Unavailable Unavailable DIANA MARINELLI Unavailable Unavailable ARASH WHITFIELD Unavailable Unavailable NO PRIMARY CAREMD Unavailable Unavailable DIANA MARINELLI Unavailable Unavailable ARASH WHITFIELD Unavailable Unavailable NO PRIMARY CARE, Unavailable Unavailable DIANA MARINELLI Unavailable Unavailable ARASH WHITFIELD Unavailable Unavailable Mehdi Rivera MD Primary Care Provider Dae BABIN, Lillian Unavailable [phone] Alcides Ramon DO Unavailable [phone] Mehdi Rivera MD Primary Care Provider Dae BABIN, Lillian Unavailable Alcides Ramon DO Unavailable [phone] Dr. Mehdi Rivera Primary Care Provider [phone] Dr. Mehdi Rivera Referring Provider [phone] Cobb, [place] Kelly Attending Provider Unavailab Dr. Connor Kramer Attending Provider Dr. Connor Kramer Other Provider Lillian Pearl MD R Unavailable Dr. Mehdi Rivera Primary Care Provider [phone] Dr. Mehdi Rivera Referring Provider [phone] JEREMIAS Shaw Attending Provider [phone] Mehdi Rivera MD Primary Care Provider [phone] TELMA PHAN Referring Unavailable TELMA PHAN Attending Unavailable JORDAN, MARYCHUYONGBE B Primary Care Unavailable DAKHIL, NOMA Attending Unavailable JORDAN, EFEWONGBE B Primary Care Unavailable DAKHIL, NOMA Referring Unavailable ALCIDES RAMON Referring Unava ilable SHIRLEYGHKathie, EFEWONGBE B Primary Care Unavailable DENZELL, NOMA Attending Unavailable JORDAN, EFEWONGBE B Primary Care Unavailable ALCDIES RAMON Attending Unava ilable SHIRLEYGHE, EFEWONGBE B Primary Care Unavailable Jhon Sampson Attending Unavailable Oleghe, Efewongbe Primary Care Unavailable MERLE DINH Attending Unavailable MERLE DINH Referring Unavailable Oleghe, Efewongbe Primary Care Unavailable Oleghe, Efewongbe Attending Unavailable Oleghe, Efewongbe Referring Unavailable Oleghe, Efewongbe Primary Care Unavailable Jhon Sampson Attending Unavailable Oleghe, Efewongbe Referring Unavailable Oleghe, Efewongbe Primary Care Unavailable Oleghe, Efewongbe Attending Unavailable Oleghe, Efewongbe Referring Unavailable Oleghe, Efewongbe Primary Care Unavailable Medications Current Medications Medication Drug Class(es) Dates Sig (Normalized) Sig (Original) atomoxetine 60 mg oral capsule (10 sources) Norepinephrine Reuptake Inhibitor Start: 02-10-2024 take 60 mg by mouth once daily in the morning Atomoxetine Active 60 MG PO EVERY MORNING February 10, 2024 2:39pm Start: 02-10-2024 End: 02-10-2024 take 60 mg by mouth once daily in the morning Atomoxetine Discontinued 60 MG PO EVERY MORNING February 10, 2024 2:12pm February 10, 2024 2:40pm Start: 01-07-2023 End: 02-10-2024 atomoxetine (STRATTERA) 18 m g capsule Take by mouth. 01/07/2023 Active Comment on above: Take by mouth. cholecalciferol 0.025 mg oral capsule (1 source) Vitamin D Start: 4 take 1 capsule by mouth once daily Cholecalciferol, Vitamin D3, (VITAMIN D) 25 mcg (1,000 unit) cap Take 1 capsule by mouth once daily. 09/18/2024 Active citalopram 20 mg oral tablet (19 sources) Serotonin Reuptake Inhibitor Start: 4 End: take 20 mg by mouth once daily Citalopram Active 20 MG PO daily February 10, 2024 2:39pm Start: 07-27-2022 End: 12-03-2022 take 20 mg by mouth once daily Citalopram Discontinued 20 MG PO DAILY September 29, 2022 12:28pm December 03, 2022 10:17am Comment on above: Take by mouth once d aily. levothyroxine sodium 0.075 mg oral tablet (17 sources) l-Thyroxine Start: 9 End: 4 take 1 tablet by mouth once daily SYNTHROID 75 mcg tablet Indications: Postoperative hypothyroidism Take 1 tablet by mouth once daily. 90 tablet 3 09/18/2024 Active Comment on above: Take 1 tablet by myrtle th once daily. loperamide hydrochloride 2 mg oral tablet (11 sources) Opioid Agonist Start: 0 Loperamide HCl (IMODIUM) 2 mg tab Indications: Functional bowel disorder Take as directed. 60 tablet 3 11/09/2019 Active Comment on above: Take as directed. multivitamin tablet (1 source) Start: 4 take 1 tablet by mouth once daily multivitamin tablet Take 1 tablet by mouth once daily. 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 60 tablet 5 09/13/2024 Active Start: 09-16-2021 End: 02-10-2024 take 40 mg by mouth twice daily Pantoprazole Discontin ued 40 MG PO TWICE A DAY September 29, 2022 1:00am October 08, 2022 10:22am Start: 09-15-2021 End: 09-16-2021 take 40 mg by mouth once daily Pantoprazole Discontinu ed 40 MG PO DAILY September 15, 2021 1:00am September 16, 2021 5:33pm Comment on above: Take 40 mg by mouth once daily. Take 1 tablet by myrtle th two times a day before meals. take 1 tablet by myrtle th twice daily before meal(s) Completed/Discontinued Medications Medication Drug Class(es) Dates Sig (Normalized) Sig (Original) atropine sulfate 0.025 mg / diphenoxylate hydrochloride 2.5 mg oral tablet (3 sources) Anticholinergic, Cholinergic Muscarinic Antagonist, Antidiarrheal Start: 05-26-2019 End: 07-21-2019 take 1 tablet by mouth twice daily Diphenoxylate-Atro pine (Lomotil) 2.5-0.025 mg tablet Discontinued 1 TABLET PO TWICE A DAY 60 May 26, 2019 12:00am July 21, 2019 9:46am buPROPion hydrochloride 100 mg oral tablet (6 sources) Aminoketone Start: 06-08-2022 End: 07-27-2022 take 100 mg by mouth twice daily Bupropion Hcl Discontinued 100 MG PO TWICE A DAY 120 June 18, 2022 9:33am July 27, 2022 3:08pm busPIRone hydrochloride 7.5 mg oral tablet (12 sources) Start: 04-28-2022 End: 06-18-2022 take 7.5 mg by mouth twice daily Buspirone Discontinued 7.5 MG PO TWICE A DAY 60 April 28, 2022 3:36pm June 18, 2022 9:13am Start: 03-12-2022 End: 04-28-2022 take 10 mg by mouth twice daily Buspirone Discontinued 10 MG PO TWICE A DAY 180 March 12, 2022 9:18am April 28, 2022 3:38pm Start: 03-12-2022 End: 03-12-2022 take 7.5 mg by mouth twice daily Buspirone Discontinued 7.5 MG PO TWICE A DAY March 12, 2022 9:09am March 12, 2022 9:23am Start: 02-05-2022 End: 03-12-2022 take 5 mg by mouth twice daily Buspirone Discontinued 5 MG PO TWICE A DAY 60 February 05, 2022 12:00am March 12, 2022 9:10am cariprazine 1.5 mg oral capsule (1 source) Atypical Antipsychotic Start: 11-19-2022 End: 01-07-2023 take 1 capsule by mouth once daily Cariprazine (Vraylar) 1.5 mg capsule Discontinued 1.5 MG PO DAILY November 19, 2022 1:00am January 07, 2023 9:32am dicyclomine hydrochloride 20 mg oral tablet (3 sources) Anticholinergic Start: 02-17-2019 End: 05-26-2019 take 20 mg by mouth twice daily Dicyclomine Discontinued 20 MG PO TWICE A DAY 60 February 17, 2019 12:00am May 26, 2019 4:34pm escitalopram 5 mg oral tablet (3 sources) Serotonin Reuptake Inhibitor Start: 04-28-2022 End: 06-08-2022 take 5 mg by mouth once daily Escitalopram Oxalate Discontinued 5 MG PO DAILY April 28, 2022 12:00am June 08, 2022 3:09pm inulin 200 mg / lactobacillus rhamnosus gg [id number] unt oral capsule (3 sources) Start: 09-19-2018 End: 07-21-2019 Lactobacillus rhamnosus GG 10 billion cell-inulin 200 mg capsule Discontinued CAP PO September 19, 2018 1:00am July 21, 2019 9:46am methIMAzole 15 mg oral tablet (12 sources) Thyroid Hormone Synthesis Inhibitor Start: 11-21-2018 End: 02-17-2019 take 1 tablet by mouth once daily methimazole 15 mg tablet Discontinued 15 MG PO DAILY November 21, 2018 9:59am February 17, 2019 9:20am Start: 09-19-2018 End: 11-21-2018 methimazole 15 mg tablet Discontinued 17.5 MG PO DAILY September 19, 2018 12:19pm November 21, 2018 10:00am Start: 06-20-2018 End: 09-19-2018 take 1 tablet by mouth once daily methimazole 15 mg tablet Discontinued 15 MG PO DAILY June 20, 2018 12:00am September 19, 2018 12:19pm Start: 04-11-2018 End: 06-20-2018 take 10 mg by mouth once daily Methimazole Discontinue d 10 MG PO DAILY April 11, 2018 12:00am June 20, 2018 2:45pm ondansetron 4 mg disintegrating oral tablet (13 sources) Serotonin-3 Receptor Antagonist Start: 12-03-2022 End: 02-10-2024 take 4 mg by mouth every eight hours Ondansetron Discontinued 4 MG PO Q8H 90 December 03, 2022 1:00am February 10, 2024 2:09pm Start: 07-21-2019 End: 07-27-2019 take 4 mg by mouth three times daily Ondansetron Hcl Discontinued 4 MG PO THREE TIMES A DAY 15 5 July 21, 2019 12:00am July 27, 2019 12:07am Start: 04-07-2019 End: 07-21-2019 take 4 mg by mouth every eight hours Ondansetron Discontinued 4 MG PO Q8H April 07, 2019 12:00am July 21, 2019 9:46am Start: 06-20-2018 End: 02-17-2019 Ondansetron Hcl (Zofran) 4 m g tablet Discontinued 4 MG PO 2 to 3 times per day October 28, 2018 2:11pm February 17, 2019 9:22am Vit,[id number]-Ocuil (3 sources) Start: 06-26-2014 End: 07-21-2019 take 1 tablet by mouth once daily Vit,[id number]-Srhvp Discontinued 1 TABLET PO DAILY June 26, 2014 12:00am July 21, 2019 9:46am Start: 06-26-2014 End: 07-21-2019 take 1 tablet by mouth once daily Vit,[id number]-Ulvcw Discontinued 1 TABLET PO DAILY June 25, 2014 11:00pm July 21, 2019 8:46am promethazine hydrochloride 12.5 mg oral tablet (3 sources) Phenothiazine Start: 07-21-2019 End: 11-21-2020 take 12.5 mg by mouth every six hours Promethazine Discontinued 12.5 MG PO EVERY 6 HOURS July 21, 2019 12:00am November 21, 2020 3:36pm propranolol hydrochloride 10 mg oral tablet (3 sources) beta-Adrenergic Krys Start: 09-30-2018 End: 10-13-2018 take 10 mg by mouth twice daily Propranolol Discontinued 10 MG PO TWICE A DAY 60 September 30, 2018 1:00am October 13, 2018 5:59pm raNITIdine 150 mg oral tablet (6 sources) Histamine-2 Receptor Antagonist Start: 04-11-2018 End: 02-17-2019 take 150 mg by mouth twice daily Ranitidine Hcl Discontinued 150 MG PO TWICE A DAY June 20, 2018 2:46pm February 17, 2019 9:23am sertraline 50 mg oral tablet (20 sources) Serotonin Reuptake Inhibitor Start: 12-03-2022 End: 02-10-2024 take 50 mg by mouth once daily Sertraline Discontinued 50 MG PO daily December 03, 2022 1:00am February 10, 2024 2:10pm Start: 09-08-2021 End: 02-05-2022 take 50 mg by mouth once daily Sertraline Discontinued 50 MG PO DAILY September 08, 2021 10:30am February 05, 2022 11:00am Start: 03-31-2021 End: 09-08-2021 take 100 mg by mouth once daily Sertraline Discontinue d 100 MG PO DAILY March 31, 2021 7:53pm September 08, 2021 10:30am Start: 01-22-2020 End: 03-31-2021 Sertraline Discontinued 50 M G PO DAILY January 16, 2021 4:15pm January 23, 2021 10:50am Take with 25 mg tablet for a total daily dose of 75 mg Start: 05-26-2019 End: 01-23-2021 take 25 mg by mouth once daily Sertraline Discontinued 25 MG PO DAILY January 16, 2021 4:15pm January 23, 2021 10:50am Start: 05-26-2019 End: 01-22-2020 take 50 mg by mouth once daily Sertraline Discontinued 50 MG PO DAILY May 26, 2019 12:00am January 22, 2020 1:49pm Start: 04-21-2019 End: 05-26-2019 take 62.5 mg by mouth once daily Sertraline Discontinued 62.5 MG PO DAILY April 21, 2019 1:12pm May 26, 2019 2:01pm Start: 03-20-2019 End: 04-21-2019 Sertraline Discontinued 12.5 MG PO DAILY March 20, 2019 12:00am April 21, 2019 1:13pm Take with 50mg tablets for a total daily dose of 62.5mg. Start: 10-28-2018 End: 04-21-2019 take 50 mg by mouth once daily Sertraline Discontinued 50 MG PO DAILY October 28, 2018 2:10pm April 21, 2019 1:12pm Start: 10-13-2018 End: 10-28-2018 take 25 mg by mouth once daily Sertraline Discontinued 25 MG PO DAILY October 13, 2018 1:00am October 28, 2018 2:10pm End: 09-14-2022 take 1.5 tablets by mouth once daily sertraline (ZOLOFT) 50 mg tablet Take 50 mg by mouth once daily. Takes 1.5 tablets daily. 0 09/14/2022 Discontinued Comment on above: Take 50 mg by mouth once daily. Takes 1.5 tablets daily. sucralfate 1000 mg oral tablet (5 sources) Aluminum Complex Start: 2 End: 3 take 1 tablet by mouth twice daily at mealtime Sucralfate (Carafate) 1 gram tablet Discontinued 1 GM PO TWICE A DAY September 29, 2022 1:00am November 05, 2022 5:16pm Take twice daily with meals. Start: 09-16-2021 End: 11-10-2021 take 1 g by mouth three times daily Sucralfate Discontinued 1 GM PO THREE TIMES A DAY September 16, 2021 1:00am November 10, 2021 10:09am Take three times a day for thirty days. Problems Active Problems Problem Classification Problem Date Documented Da te Episodic/Chronic Abdominal pain (2 sources) Abdominal pain; Translations: [Unspecified abdominal pain] 10-07-2022 Episodic Anxiety disorders (8 sources) Anxiety; Translations: [Anxiety disorder, unspecified] Onset: 5 Chronic Attention-deficit, conduct, and disruptive behavior disorders (1 source) Attention deficit hyperactivity disorder; Translations: [Attention-deficit hyperactivity disorder, unspecified type] 01-08-2023 Chronic Cancer of thyroid (13 sources) Malignant tumor of thyroid gland; Translations: [Malignant neoplasm of thyroid gland] Onset: 9 01-09-2019 Chronic Cancer of thyroid (2 sources) History of papillary adenocarcinoma of thyroid; Translations: [Personal history of malignant neoplasm of thyroid] Onset: 4 09-18-2024 Episodic Coagulation and hemorrhagic disorders (2 sources) Easy bruising; Translations: [Spontaneous ecchymoses] 02-10-2024 Episodic Complications of surgical procedures or medical care (20 sources) Postoperative hypothyroidism; Translations: [Postprocedural hypothyroidism] Onset: 9 Chronic Esophageal disorders (11 sources) Gastroesophageal reflux disease; Translations: [Gastro-esophageal reflux disease without esophagitis] Onset: 3 01-13-2024 Chronic Genitourinary symptoms and ill-defined conditions (3 sources) Proteinuria; Translations: [Proteinuria, unspecified] 06-20-2018 Episodic Lymphadenitis (2 sources) Inguinal lymphadenopathy; Translations: [Localized enlarged lymph nodes] 02-10-2024 Episodic Menstrual disorders (11 sources) Dysmenorrhea; Translations: [Dysmenorrhea, unspecified] Onset: 7 03-28-2007 Chronic Other gastrointestinal disorders (3 sources) Irritable bowel syndrome with diarrhea; Translations: [Irritable bowel syndrome with diarrhea] 03-20-2019 Chronic Other inflammatory condition of skin (1 source) Itching ; Translations: [Pruritus, unspecified] 02-10-2024 Episodic Other inflammatory condition of skin (1 source) Pruritus, unspecified; Translations: [Unspecified pruritic disorder] 02-10-2024 Episodic Other screening for suspected conditions (not mental disorders or infectious disease) (1 source) Encounter for screening mammogram for malignant neoplasm of breast; Translations: [Encounter for screening mammogram for malignant neoplasm of breast] Onset: 5 Episodic Thyroid disorders (20 sources) Toxic uninodular goiter; Translations: [Thyrotoxicosis with toxic single thyroid nodule without thyrotoxic crisis or storm] Onset: 8 Resolved: 2 12-15-2018 Chronic Varicose veins of lower extremity (2 sources) Varicose veins of lower extremity; Translations: [Varicose veins of bilateral lower extremities with other complications] Episodic Past or Other Problems Problem Classification Problem Date Documented Date Episodic/Chronic Other complications of (4 sources) Hyperthyroidism in ; Translations: [Endocrine, nutritional and metabolic diseases complicating , third trimester] Resolved: 05-23-2018 05-23-2018 Episodic Other nutritional; endocrine; and metabolic disorders (4 sources) H/O: hyperthyroidism; Translations: [Personal history of other endocrine, nutritional and metabolic disease] Onset: 01-09-2019 Resolved: 09-16-2020 09-16-2020 Episodic Other skin disorders (11 sources) Acne; Translations: [Other acne] Onset: 03-28-2007 03-28-2007 Episodic Thyroid disorders (4 sources) Mass of thyroid gland; Translations: [Disorder of thyroid, unspecified] Onset: 11-10-2018 Resolved: 12-15-2018 12-15-2018 Episodic Results Test Name Value Interpretation Reference Range Facility SCRN MAMM (CAD)W/LES belcher 02-26-2025 SCRN MAMM (CAD)W/LES [facility] Imaging Services [address] [place] [address] SCRN MAMM (CAD)W/LES BILAT MR#: [id number] Acct: [id number] Name: CHRISTINA COOPER Rep #: [id number] : 1990 F 35 From: Nisha Howell PCP: Dr. Mehdi Rivera MD Status: REG CLI Study: SCRN MAMM (CAD)W/LES BILAT Date of Exam: 02/08 07/05 Exam# [id number] Ordering Dr: YONY HARTMAN EXAM: SCRN MAMM (CAD)W/LES BILAT DATE: 02/26/2025 CLINICAL HISTORY: F, Age 35 y/o , SCREENING BREAST CANCER RISK ASSESSMENT: Has not been calculated. TECHNIQUE: Bilateral screening digital breast tomosynthesis with 2D and 3D images. Computer aided detection. COMPARISON: Prior exam(s) dated none. FINDINGS: TISSUE DENSITY: The breast tissue is extremely dense which lowers the sensitivity of mammography. Small masses could be obscured. Patient may benefit by having a complete bilateral breast ultrasound or MRI examination to exclude underlying masses. Bilateral Breast Mammographic Findings: There is a 6 mm nodular masslike density in the lateral, far posterior aspect of the right breast. Further workup is indicated. There is a 6 mm nodular density in the lateral far posterior aspect of the left breast. Further workup is indicated. A 3 mm density is seen in the superior, middle 3rd aspect of the left breast. A lobulated 8 mm nodular density is seen in the medial, far posterior aspect of the left breast. There are no suspicious masses or architectural distortion in either breast. BI/SCRN MAMM (CAD)W/LES BILAT IMPRESSION: OVERALL FINAL ASSESSMENT: BIRADS 0 Incomplete: Need additional imaging evaluation and/or prior mammograms for comparison. RECOMMENDATION: Incomplete: Need additional imaging evaluation and/or prior mammograms for comparison. Patient should return for LM views of the right and left breast as well as spot compression CC and spot compression MLO views of the right and left breast masslike densities. An ultrasound will also most likely be needed. A letter with findings and recommendations will be mailed to the patient. Reading Location: [facility] CC: Dr. Mehdi Rivera MD; YONY HARTMAN Skin Carver: Signed Normal [facility] CBC W/Diff, Automatedon 01-09 Absolute Lymph 1.75 X10 3/uL Normal 0.83-4.51 [facility] Comment on above: Performed By: #### L 100.0100, L501.9520, L500.4100, L500.4050 #### [facility] [address] [place], [address] Absolute Neut 2.0 X10 3/uL Normal 2.0-7.7 [facility] Comment on above: Performed By: #### L 100.0100, L501.9520, L500.4100, L500.4050 #### [facility] [address] [place], [address] Basophils/100 WBC (Bld) 0.7 % Normal 0-1 [facility] Comment on above: Performed By: #### L 100.0100, L501.9520, L500.4100, L500.4050 #### [facility] [address] [place], [address] Eosinophils/100 WBC (Bld) 0.9 % Normal 0-5 [facility] Comment on above: Performed By: #### L 100.0100, L501.9520, L500.4100, L500.4050 #### [facility] [address] [place], [address] Erythrocyte distribution width (RBC) [Ratio] 12.1 % Normal 11.6-14.6 [facility] Comment on above: Performed By: #### L 100.0100, L501.9520, L500.4100, L500.4050 #### [facility] [address] [place], [address] Hematocrit (Bld) [Volume fraction] 38.0 % Normal 37-47 [facility] Comment on above: Performed By: #### L 100.0100, L501.9520, L500.4100, L500.4050 #### [facility] [address] [place], [address] Hemoglobin (Bld) [Mass/Vol] 12.7 g/dL Normal 12.0-15.0 [facility] Comment on above: Performed By: #### L 100.0100, L501.9520, L500.4100, L500.4050 #### [facility] [address] [place], [address] IG% 0.200 Normal 0.0-0.9 [facility] Comment on above: Result Comment: IG% - Immature Granulocytes (promyelocytes, myelocytes and metamyelocytes) > 1% indicates that a LEFT SHIFT is Present. Performed By: #### L 100.0100, L501.9520, L500.4100, L500.4050 #### [facility] [address] [place], [address] Lymphocytes/100 WBC (Bld) 41.3 % High 19-41 [facility] Comment on above: Performed By: #### L 100.0100, L501.9520, L500.4100, L500.4050 #### [facility] [address] [place], [address] MCH (RBC) [Entitic mass] 29.3 pg Normal 27.0-32.0 [facility] Comment on above: Performed By: #### L 100.0100, L501.9520, L500.4100, L500.4050 #### [facility] [address] [place], [address] MCHC (RBC) [Mass/Vol] 33.4 g/dL Normal 32-36 [facility] Comment on above: Performed By: #### L 100.0100, L501.9520, L500.4100, L500.4050 #### [facility] [address] [place], [address] MCV (RBC) [Entitic vol] 87.8 fL Normal 81-99 [facility] Comment on above: Performed By: #### L 100.0100, L501.9520, L500.4100, L500.4050 #### [facility] [address] [place], [address] Monocytes/100 WBC (Bld) 10.1 % High 0-10 [facility] Comment on above: Performed By: #### L 100.0100, L501.9520, L500.4100, L500.4050 #### [facility] [address] [place], [address] Neutrophils/100 WBC (Bld) 46.8 % Low 47-70 [facility] Comment on above: Performed By: #### L 100.0100, L501.9520, L500.4100, L500.4050 #### [facility] [address] [place], [address] Nucleated RBC (Bld) [#/Vol] 0 10*3/uL Normal 0-5 [facility] Comment on above: Performed By: #### L 100.0100, L501.9520, L500.4100, L500.4050 #### [facility] [address] [place], [address] Platelet mean volume (Bld) [Entitic vol] 10.0 fL Normal 6.2-12.0 [facility] Comment on above: Performed By: #### L 100.0100, L501.9520, L500.4100, L500.4050 #### [facility] [address] [place], [address] Platelets (Bld) [#/Vol] 295 10*3/uL Normal 150-450 [facility] Comment on above: Performed By: #### L 100.0100, L501.9520, L500.4100, L500.4050 #### [facility] [address] [place], [address] RBC (Bld) [#/Vol] 4.33 10*6/uL Normal 4.2-5.4 [facility] Comment on above: Performed By: #### L 100.0100, L501.9520, L500.4100, L500.4050 #### [facility] [address] [place], [address] RDW SD 39.1 fl Normal 35.1-43.9 [facility] Comment on above: Performed By: #### L 100.0100, L501.9520, L500.4100, L500.4050 #### [facility] [address] [place], [address] WBC (Bld) [#/Vol] 4.2 10*3/uL Low 4.4-11.0 [facility] Comment on above: Performed By: #### L 100.0100, L501.9520, L500.4100, L500.4050 #### [facility] [address] [place], [address] Comprehensive Metabolic Prof [facility] 01-25-2025 Albumin [Mass/Vol] 4.2 g/dL Normal 3.5-5.0 [facility] Comment on above: Performed By: #### L 100.0100, L501.9520, L500.4100, L500.4050 #### [facility] [address] [place], [address] Albumin/Globulin [Mass ratio] 1.5 {ratio} Normal 0.9-2.4 [facility] Comment on above: Performed By: #### L 100.0100, L501.9520, L500.4100, L500.4050 #### [facility] [address] [place], [address] ALK PHOS 53 U/L Normal 35-104 [facility] Comment on above: Performed By: #### L 100.0100, L501.9520, L500.4100, L500.4050 #### [facility] [address] [place], [address] ALT [Catalytic activity/Vol] 20 U/L Normal <=34 [facility] Comment on above: Performed By: #### L 100.0100, L501.9520, L500.4100, L500.4050 #### [facility] [address] [place], [address] AST [Catalytic activity/Vol] 19 U/L Normal <=31 [facility] Comment on above: Performed By: #### L 100.0100, L501.9520, L500.4100, L500.4050 #### [facility] [address] [place], [address] Bilirubin [Mass/Vol] 0.32 mg/dL Normal 0.00-1.30 [facility] Comment on above: Performed By: #### L 100.0100, L501.9520, L500.4100, L500.4050 #### [facility] [address] [place], [address] BUN/CRE 19.0 RATIO Normal 10-20 [facility] Comment on above: Performed By: #### L 100.0100, L501.9520, L500.4100, L500.4050 #### [facility] [address] [place], [address] Calcium [Mass/Vol] 9.4 mg/dL Normal 7.6-11.0 [facility] Comment on above: Performed By: #### L 100.0100, L501.9520, L500.4100, L500.4050 #### [facility] [address] [place], [address] Chloride [Moles/Vol] 104 mmol/L Normal 98-108 [facility] Comment on above: Performed By: #### L 100.0100, L501.9520, L500.4100, L500.4050 #### [facility] [address] [place], [address] CO2 [Moles/Vol] 24.8 mmol/L Normal 21.0-32.0 [facility] Comment on above: Performed By: #### L 100.0100, L501.9520, L500.4100, L500.4050 #### [facility] [address] [place], [address] Creatinine [Mass/Vol] 0.80 mg/dL Normal 0.70-1.20 [facility] Comment on above: Performed By: #### L 100.0100, L501.9520, L500.4100, L500.4050 #### [facility] [address] [place], [address] GAP 10 Normal 5-15 [facility] Comment on above: Performed By: #### L 100.0100, L501.9520, L500.4100, L500.4050 #### [facility] [address] [place], [address] GFR/1.73 sq M.predicted among non-blacks MDRD (S/P/Bld) [Vol rate/Area] 98 mL/min/{1.73_m2} Normal >60 [facility] Comment on above: Result Comment: mL/m in/1.73m2 CKD-EPI Creatinine Equation (2020) Performed By: #### L 100.0100, L501.9520, L500.4100, L500.4050 #### [facility] [address] [place], [address] Globulin (S) [Mass/Vol] 2.9 g/dL Normal 2.2-4.2 [facility] Comment on above: Performed By: #### L 100.0100, L501.9520, L500.4100, L500.4050 #### [facility] [address] [place], [address] Glucose [Mass/Vol] 84 mg/dL Normal 70-99 [facility] Comment on above: Performed By: #### L 100.0100, L501.9520, L500.4100, L500.4050 #### [facility] [address] [place], [address] Potassium [Moles/Vol] 4.5 mmol/L Normal 3.3-5.1 [facility] Comment on above: Performed By: #### L 100.0100, L501.9520, L500.4100, L500.4050 #### [facility] [address] [place], [address] Sodium [Moles/Vol] 139 mmol/L Normal 133-145 [facility] Comment on above: Performed By: #### L 100.0100, L501.9520, L500.4100, L500.4050 #### [facility] [address] [place], [address] T PROT 7.1 g/dL Normal 5.9-8.4 [facility] Comment on above: Performed By: #### L 100.0100, L501.9520, L500.4100, L500.4050 #### [facility] [address] [place], [address] Urea nitrogen [Mass/Vol] 15 mg/dL Normal 4-19 [facility] Comment on above: Performed By: #### L 100.0100, L501.9520, L500.4100, L500.4050 #### [facility] [address] [place], [address] Lipid Profileon 01-25-2025 CHOL:HDL 3.04 Normal [facility] Comment on above: Performed By: #### L 100.0100, L501.9520, L500.4100, L500.4050 #### [facility] [address] [place], [address] Cholesterol [Mass/Vol] 188 mg/dL Normal <=200 [facility] Comment on above: Result Comment: Chol esterol level, Desirable <200 mg/dL Borderline high cholesterol 200-239 mg/dL High cholesterol >=240 mg/dL Recommendations of the NCEP Adult Treatment Panel for the following risk-cutoff thresholds for the [place] population. Performed By: #### L 100.0100, L501.9520, L500.4100, L500.4050 #### [facility] [address] [place], [address] Cholesterol in HDL [Mass/Vol] 62 mg/dL Normal [facility] Comment on above: Result Comment: [place] onal Cholesterol Education Program (NCEP) guidelines: <40 mg/dL: Low HDL-cholesterol (major risk factor for CHD) >= 60 mg/dL: High HDL-cholesterol (negative risk factor for CHD) HDL-cholesterol is affected by a number of factors, e.g. smoking, exercise, hormones, sex and age. Performed By: #### L 100.0100, L501.9520, L500.4100, L500.4050 #### [facility] [address] [place], [address] Cholesterol in LDL [Mass/Vol] 117 mg/dL Normal [facility] Comment on above: Result Comment: Bord sugwah=416-162 mg/dL Higher Blgw=678 mg/dL or greater Performed By: #### L 100.0100, L501.9520, L500.4100, L500.4050 #### [facility] [address] [place], [address] Cholesterol in VLDL [Mass/Vol] 9 mg/dL Normal 5-40 [facility] Comment on above: Performed By: #### L 100.0100, L501.9520, L500.4100, L500.4050 #### [facility] [address] [place], [address] Triglyceride [Mass/Vol] 47 mg/dL Normal [facility] Comment on above: Result Comment: The drugs N-Acetylcysteine and Metamizole may falsely depress this assay. Normal range: <150 mg/dL Borderline High: 150-199 mg/dL High: 200-499 mg/dL Very High: >500 mg/dL Performed By: #### L 100.0100, L501.9520, L500.4100, L500.4050 #### [facility] [address] [place], [address] Thyroid Stim Hormone (TSH)on 01-25-2025 TSH 1.390 uIU/mL Normal 0.300-4.200 [facility] Comment on above: Performed By: #### L 100.0100, L501.9520, L500.4100, L500.4050 #### [facility] [address] [place], [address] Internal Medicine Office Vis carlotta 01-18-2025 Internal Medicine Office Visit [facility] [address] [place] [address] [place] [address] OFFICE VISIT Date of Service: 01/18/25 MR#: [id number] Acct: [id number] Name: CHRISTINA COOPER Jaime Rep #: [id number] : 1990 Provider: JESUS Díaz Age/Sex: 34/F Location: [facility] Status: Signed Intake Vital Signs 03/30/24 16:51 01/18/25 13:09 Height 5 ft 6 in 5 ft 6 in Weight: 131 lb 139 lb 4 oz BMI 21.1 22.4 BP 108/60 102/62 Blood Pressure Location Lt brachial Rt brachial Position Sitting Sitting Respiration 14 16 Pulse 94 75 Pulse Source Monitor Monitor Temp 97.1 F L 98.9 F Temp Source Temporal Temporal Pulse Oximetry (%) 97 99 Oxygen Delivery Method room air room air Intake Visit Reasons: acute - med refills Chief Complaint: refill on meds [employer] Required: No Accompanied by: Self Is patient in pain?: No Allergies No Known Allergies Allergy (Verified 01/18/25 13:08) Medications ???Medication ???Instructions ???Recorded ???Confirmed ???Type atomoxetine 60 mg capsule 60 mg PO QAM #90 caps 01/18/2508/04 Rx citalopram 20 mg tablet 20 mg PO QDAY #90 tabs 01/18/25 Rx levothyroxine 75 mcg tablet 75 mcg PO DAILY #90 tabs 01/18/25 01/18/25 Rx pantoprazole 40 mg tablet,delayed 20 mg (1/2 x 40 mg) PO BID #180 0 01/18/25 01/18/25 Rx release tabs Have you fallen in the past year?: No PFSH Medical History ADHD Ryan esophagus Cancer Anxiety Migraine headache Non-smoker Thyroid disease History of renal disease Heartburn History of IBS Hypothyroidism Surgical History Hx of colonoscopy History of partial thyroidectomy Family History Sister Diabetes Social History Smoking Status: Never smoker alcohol intake: never substance use type: does not use what type of physical activity do you participate in: running frequency: 3-4 times per week HPI HPI Chief Complaint: refill on meds Details: CHRISTINA COOPER, is a 34 F who presents to the office today for refills for her chronic disease states / illness. Patient has been on the same medications for several years now She states that the combination of the Strattera and the Citalopram has been very effective for her. She has been on the Pantoprazole for about 4 years now. Initially was placed on this for Barretts Esophagus. She was seeing GI and had scopes / evaluations and is currently seeing a GI at the [facility]. Her last endoscopy was a year and a half ago and plans on having these every 2 years per her GI doctor. They did lower her Pantoprazole to 20mg BID. She states that she is well controlled and is hoping to eventually reduce this and ultimately she would like to stop this eventually. No physical concerns or complaints at this time She is UTD with PAP smears. She does have an order for mammogram to be done but has to schedule that on her own ROS Const Constitutional: No body ache, excessive sweating, fatigue, fever(s), frequent falls, headache(s), snoring, weakness, weight change, sleep problems or change in appetite Eyes Eyes: No blurry vision, change in vision, eye pain or Light sensitivity ENT ENT: No abnormal hearing, ear or mastoid pain, tinnitus, nasal congestion, headache(s), neck pain or sore throat Resp Respiratory: No cough, shortness of breath, snoring or wheezing Cardio Cardiology: No chest pain at rest, chest pain with exertion, excessive sweating, shortness of breath, dyspnea on exertion, lightheadedness, orthopnea or palpitations Gastro GI: No abdominal pain, change in bowel habits, constipation, cramping, diarrhea, nausea/dyspepsia or vomiting Genitourinary-Female: No burning urination, painful urination, urinary incontinence, urinary frequency, blood in urine, abnormal periods or pelvic pain Musc Musculoskeletal: No abnormal gait, joint pain, back pain, limited range of motion, neck pain, numbness, stiffness, tingling or Arthritis Skin Skin: No dry skin, redness, lesions, itchy eyes, rash or wounds Neuro Neurology: No abnormal gait, abnormal hearing, abnormal speech, dizziness, weakness, frequent falls, headache(s), memory loss, numbness or tingling Psych Psychiatric: No anxiety, No change in appetite, No depression, No memory loss and No Thoughts of harming yourself/Others Endo Endocrine: No cold intolerance, excessive sweating, fatigue, flushing, heat intolerance, increased thirst/drinking, increased hunger or weight change Aller/Imm Allergy/Immunologic: No itchy eyes, seasonal allergy symptoms, hives or wheezing Clyde/Lymp Hematologic/Lymphatic: No easy bleeding, easy bru (more content not included)... Normal [facility] CNOVon 09-18-2024 CNOV Office Visit (ENAGST ) -------- CHRISTINA COOPER ([id number]) 1990 F Date Time Provider Department 09/18/24 10:00 AM ALCIDES RAMON During your visit today, we recorded the following information about you: Pulse Blood pressure Weight Height 94/minute 123/74 61.7 kg 1.676 m Alcides Ramon DO 09/18/2024 10:32 AM Signed Subjective HPI Thyroid Problem 07/24/17: TSH 0.011 (0.40-5.50), free T4 2.5 (0.9-1.7) 08/04/17: Thyroid ultrasound at [facility]: 4.3 x 3.1 x 2.5 cm hypervascular solid mass left lobe. Isthmus 9 x 6 x 5 mm solid nodule. Right lobe is homogeneous. Regional lymph nodes are normal. 08/20/17: TSI <13, microsomal antibody 20 (0-35) 11/01/17: TSH <0.01, free T4 1.21, free T3 5.4 -- increased methimazole to 7.5 mg daily. 01/10/18: TSH <0.01, free T4 1.24 02/03/18: TSH <0.01, free T4 1.41 03/03/18: TSH <0.01, free T4 1.51 (0.76-1.46), free T3 5.6 (2.18-3.98) 03/18/18: Initial visit. 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 Pt is currently 35 weeks and is due early April. She lives in [place] and has been following with manager highway Dr. Whitfield and attending psychiatrist Dr. Jane in [facility]. Pt states she was diagnosed with hyperthyroidism before she got in July,. She had no issues with her first in 2013. In 2016 she noted a visible left neck lump and had thyroid ultrasound done at [facility] showing large neck mass (trying to obtain report). She states she never was able to get thyroid uptake and scan done due to + test. TSI and microsomal antibody was normal. She was initially started on PTU and then was switched to methimazole in the second trimester. She has been on methimazole 7.5 mg daily for the past few months. Pt states that Dr. Jane was suggesting that pt get I-131 treatment immediately after delivery and pt is not wanting to do that as she wants to breast feed. Denies difficulty swallowing or pressure sensation. No family hx of thyroid cancer or thyroid disorders. Pt notes occasional palpitations and a fine tremor which has improved since methimazole dose was increased. States she had a rash a few weeks ago which then went away. Last labs done 03/03 - reviewed written note - no changVisible/palpable large left thyroid mass in the setting of 3rd trimester of with hyperthyroidism. Thyroid antibody testing was normal in the 1st trimester. Taking methimazole 7.5 mg daily. Pt is here for second opinion as she desires to breast feed after delivery and was encouraged to have I-131 treatment immediately after delivery by previous attending psychiatrist. Thyroid ultrasound performed in the office by me today reveals: The right lobe is not enlarged and measures 4.66 x 1.05 x 1.16 cm. It is heterogeneous containing some small blood vessels with a few tiny nodular areas and no dominant nodules. The isthmus measures 0.23 cm in depth. The left lobe is comprised of a large heterogeneous mass that takes up the entire lobe measuring 4.66 x 1.05 x 1.16 cm with smooth borders and increased vascularity and no calcifications. No abnormal appearing neck lymph nodes seen. Due to large size and appearance recommend that pt consider left thyroid lobectomy in the future rather than I-131 treatment as this will provide definitive treatment of hyperthyroidism and rule out malignancy (reviewed lower risk of malignancy with toxic nodule). 05/19/18: TSH 0.008, free T4 1.4, free T3 elevated 6.9. CBC/CMP normal. Total protein slightly low. 05/23/18: She delivered a healthy baby boy 6 weeks ago named Aneudy who is at appt today. Free T3 is now higher. Increase methimazole to 15 mg daily - she can space out the dosing to avoid nausea and take dose just after a feed. 07/07/18: TSH <0.001 ( 1.0400-5.500), Free T4 1.1, Free T3 4.4 (2.3-4.1) 07/18/18: Free T4 1.1, Free T3 4.6 (2.3-4.1) 08/25/18: TSH <0.005(0.400-5.500), Free T4 1.0, Free T3 4.2 ( 2.3-4.1) 12/14/18: Left thyroid lobectomy at [facility] by Dr. 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 No angiolymphatic invasion or extrathyroidal extension. One lymph node negative for carcinoma. 01/05/19: TSH 14.64, free T4 low 0.3, free T3 low at 1.6, calcium normal 9.6 01/09/19 visit: Pt was in communication a few days ago noting severe fatigue. Started levothyroxine 75 mcg daily 2 days ago via [employer]. 03/09/19: TSH 1.200, Free T4 1.2, Free T3 2.4. Continue levothyroxine 75 mcg daily. 07/06/19: TSH 1.380, Free T4 1.2 09/11/19: Recent labs reviewed with pt. Pt had labs done in June because she was not feeling well with tension headaches and wanted to rule out out any thyroid abnormalities. Pt currently taking levothyroxine 75 mcg daily. (more content not included)... Normal [facility] Internal Medicine Office Vis carlotta 03-30-2024 Internal Medicine Office Visit [facility] [address] [place] [address] OFFICE VISIT Date of Service: 03/30/24 MR#: [id number] Acct: [id number] Name: CHRISTINA COOPER Jaime Rep #: [id number] : 1990 Provider: Dr. 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 Is patient in pain?: No Allergies No Known Allergies Allergy (Verified 03/30/24 16:48) Medications ???Medication ???Instructions ???Recorded ???Confirmed ???Type levothyroxine 75 mcg tablet 75 mcg PO DAILY 02/17/19 03/30/24 History atomoxetine 60 mg capsule 60 mg PO QAM #30 caps 02/10/24 03/30/24 Rx citalopram 20 mg tablet 20 mg PO QDAY #30 tabs 02/10/24 03/30/24 Rx pantoprazole 40 mg tablet,delayed 20 mg PO BID 02/10/24 03/30/24 History release PFSH Medical History ADHD Ryan esophagus Cancer Anxiety Migraine headache Non-smoker Thyroid disease History of renal disease Heartburn History of IBS Hypothyroidism Surgical History Hx of colonoscopy History of partial thyroidectomy Family History Sister Diabetes Social History Smoking Status: Never smoker alcohol intake: never substance use type: does not use what type of physical activity do you participate in: running frequency: 3-4 times per week HPI HPI Chief Complaint: 1 M FU Details: CHRISTINA COOPER, is a 34 F who presents to the office today for follow-up of her chronic conditions. No acute concerns at this time. She was seen recently due to concern for groin area swelling. Had workup done with no acute concerns. An ultrasound was ordered however this has not been done yet. She states that she did not hear from the hospital. She does not believe that there has been any significant change in size. Chronic medical conditions are stable. Chronic history of anxiety/ADHD. Currently on atomoxetine and citalopram she states that she has been doing really well on both medications over the last year. No concerning side effects. History of hypothyroidism on levothyroxine. No heat or cold intolerance or unintentional weight changes. Last TSH within range. ROS Const Constitutional: No body ache, chills, excessive sweating, fatigue, fever(s), frequent falls, headache(s), snoring, weakness, sleep problems or change in appetite Eyes Eyes: No blurry vision, change in vision, floaters, visual disturbances, eye pain or Light sensitivity ENT ENT: No abnormal hearing, ear or mastoid pain, tinnitus, balance problems, nosebleed/epistaxis, nasal congestion, headache(s), neck pain or sore throat Resp Respiratory: No cough, hemoptysis, pain on inspiration, shortness of breath, snoring or wheezing Cardio Cardiology: No chest pain at rest, chest pain with exertion, excessive sweating, shortness of breath, dyspnea on exertion, lightheadedness, orthopnea or palpitations Gastro GI: No abdominal pain, change in bowel habits, constipation, cramping, diarrhea, nausea/dyspepsia or vomiting Genitourinary-Female: No burning urination, painful urination, urinary incontinence, urinary frequency, suprapubic fullness, side pain, abnormal vaginal bleeding or pelvic pain Musc Musculoskeletal: No abnormal gait, joint pain, back pain, limited range of motion, muscle cramps, neck pain or numbness Skin Skin: No dry skin, redness, excessive hair growth, yellowing of the eye, lesions, itchy eyes, rash or wounds Neuro Neurology: No abnormal gait, abnormal hearing, behavioral changes, unsteady gait/balance, weakness, frequent falls, headache(s), memory loss, numbness or visual disturbances Psych Psychiatric: No anxiety, No behavioral changes, No change in appetite, No depression, No memory loss and No Thoughts of harming yourself/Others Endo Endocrine: No cold intolerance, excessive sweating, fatigue, flushing, heat intolerance, increased thirst/drinking or increased hunger Aller/Imm Allergy/Immunologic: No itchy eyes, seasonal allergy symptoms, hives or wheezing Clyde/Lymp Hematologic/Lymphatic: No easy bleeding, easy bruising, enlarged lymph nodes or other Exam Const General: cooperative, comfortable and no acute distress Orientation: alert (more content not included)... [facility] -------- CHRISTINA COOPER ([id number]) 1990 F Date Time Provider Department 03/13/24 3:00 PM TELMA PHAN During your visit today, we recorded the following information about you: Pulse Blood pressure 81/minute 100/68 Telma Phan, DO 04/05/2024 10:59 AM Signed [facility] [place] [facility]PART[facility] OF VASCULAR SURGERY OUTPATIENT VISIT DATE March 13, 2024 OUTPATIENT VISIT TYPE ESTABLISHED SERVICE DATE: 03/13/2024 SERVICE TIME: 3:50 PM PRIMARY CARE PHYSICIAN: Mehdi Rivera MD HISTORY OF PRESENT ILLNESS: Ms. Cooper is a 34 year old female who presents today for a vascular surgery follow-up visit for symptomatic spider varicose veins. Reviewed procedure and consent obtained PAST MEDICAL HISTORY Diagnosis Date Hyperthyroidism Hyperthyroidism affecting in third trimester Other acne Post-surgical hypothyroidism Proteinuria since recent Toxic thyroid nodule PAST SURGICAL HISTORY Procedure Laterality Date COLONOSCOPY DIAGNOSTIC 09/2021 COLONOSCOPY DIAGNOSTIC 01/2012 EGD DIAGNOSTIC 09/2021 EGD DIAGNOSTIC 09/2022 SCLEROTHERAPY MULT VEINS Left 02/17/2019 THYROIDECTOMY TOTAL/COMPLETE Left 12/14/2018 partial SOCIAL HISTORY Social History Tobacco Use Smoking status: Never Smokeless tobacco: Never Substance Use Topics Alcohol use: No Drug use: No MEDICATIONS: pantoprazole DR (PROTONIX) 20 mg tablet Take 1 tablet by mouth two times a day before meals. SYNTHROID 75 mcg tablet Take 1 tablet by mouth once daily. atomoxetine (STRATTERA) 18 mg capsule Take by mouth. citalopram (CELEXA) 20 mg tablet Take by mouth once daily. Loperamide HCl (IMODIUM) 2 mg tab Take as directed. pantoprazole DR (PROTONIX) 20 mg tablet take 1 tablet by mouth twice daily before meal(s) (Patient not taking: Reported on 03/13/2024) ALLERGIES: ALLERGIES No Known Allergies PHYSICAL EXAM: BP 100/68 (BP Site: Left Arm, BP Position: Sitting, BP Cuff Size: Regular Adult) Pulse 81 LMP 09/06/2023 SpO2 99% The patient was placed in the supine position and the bilateral lower extremities were cleansed with isopropyl alcohol. Syringes containing 2 mL of 0.5% Asclera were prepared and veins in the lateral legs were injected using an angled 30-gauge needle. A total of 2 mL of solution injection. Once all injections were completed the legs were cleansed with isopropyl alcohol and the patient put on compression. There were no complications and the patient tolerated the procedure well. IMPRESSION: Ms. Cooper is a 34 year old female with symptomatic varicose spider veins . PLAN and RECOMMENDATIONS: Reviewed home going instructions Follow up as needed SIGNATURE: Telma Phan DO PATIENT NAME: Christina Cooper DATE: March 13, 2024 TIME: 3:50 PM Referring Provider: TELMA PHAN [[id number]] Allergies As of Date: 03/13/2024 (No Known Allergies) Date Reviewed: 03/13/2024 Reviewed by: Kary Lee OCCA - Fully Assessed Reason for Visit: Sclerotherapy Tx [776] Primary Visit Diagnosis:Symptomatic spider varicose vein [I83.899] Prescriptions as of 04/05/2024 - pantoprazole DR (PROTONIX) 20 mg tablet take 1 tablet by mouth twice daily before meal(s) - pantoprazole DR (PROTONIX) 20 mg tablet Take 1 tablet by mouth two times a day before meals. - SYNTHROID 75 mcg tablet Take 1 tablet by mouth once daily. - atomoxetine (STRATTERA) 18 mg capsule Take by mouth. - citalopram (CELEXA) 20 mg tablet Take by mouth once daily. - Loperamide HCl (IMODIUM) 2 mg tab Take as directed. Problem List As Of Date 03/13/2024 Noted Resolved DYSMENORRHEA [N94.6] 03/28/2007 ACNE NEC [L70.8] 03/28/2007 Hyperthyroidism [E05.90] 01/09/2019 Hyperthyroidism affecting in third tr* 05/23/2018 Toxic thyroid nodule [E05.10] 09/14/2022 Nodular goiter [E04.9] 05/23/2018 01/09/2019 Thyroid mass [E07.9] 11/10/2018 12/15/2018 History of partial thyroidectomy [E89.0] 01/09/2019 History of hyperthyroidism [Z86.39] 01/09/2019 09/16/2020 Thyroid cancer (HCC) [C73] 01/09/2019 Postoperative hypothyroidism [E89.0] 03/13/2019 Disposition: Return if symptoms worsen or fail to improve. Follow-up and Disposition History for Encounter Date Provider Department Center 03/13/2024 [id number] PHAN [facility] Encounter Status:Closed by TELMA PHAN on 04/05/24 Normal [facility] Absolute lymphocyte countOrd ered By: Meer Shaw on 02-10-2024 Lymphocytes Auto (Unsp spec) [#/Vol] 1.99 10*3/uL 0.83-4.51 [facility] Activated partial thrombopla stin time (aPTT) in platelet poor plasma by coagulation aOrdered By: Mere Shaw on 02-10-2024 aPTT Coag (PPP) [Time] 29.1 s 24.1-36.2 [facility] Automated lymphocyte count a s percentage of total leukocytesOrdered By: Mere Shaw on 02-10-2024 Lymphocytes/100 WBC Auto (Unsp spec) 25.9 % 19-41 [facility] Basophil percentageOrdered B y: Mere Shaw on 02-10-2024 Basophils/100 WBC (Bld) 0.5 % 0-1 [facility] Bilirubin [Mass/Vol] 0.30 mg/dL 0.20-1.00 [facility] Comment on above: For patients on eltr ombopag therapy, use of Dimension [place] TBIL is not recommended. Chloride [Moles/Vol] 106 mmol/L 98-107 [facility] Eosinophils/100 WBC (Bld) 0.8 % 0-5 [facility] Glucose [Mass/Vol] 89 mg/dL 74-106 [facility] Hemoglobin (Bld) [Mass/Vol] 12.1 g/dL 12.0-15.0 [facility] LDH [Catalytic activity/Vol] 183 U/L 84-246 [facility] Monocytes/100 WBC (Bld) 8.8 % 0-10 [facility] Neutrophils (Bld) [#/Vol] 4.9 10*3/uL 2.0-7.7 [facility] Neutrophils/100 WBC (Bld) 63.6 % 47-70 [facility] Potassium [Moles/Vol] 3.7 mmol/L 3.5-5.1 [facility] Protein [Mass/Vol] 7.0 g/dL 6.4-8.2 [facility] Sodium [Moles/Vol] 138 mmol/L 136-145 [facility] WBC (Bld) [#/Vol] 7.7 10*3/uL 4.4-11.0 [facility] Determination of erythrocyte mean corpuscular volume (MCV)Ordered By: Mere Shaw on 02-10-2024 MCV (RBC) [Entitic vol] 87.2 fL 81-99 [facility] Erythrocyte distribution wid th ratioOrdered By: Mere Shaw on 02-10-2024 Erythrocyte distribution width (RBC) [Ratio] 12.5 % 11.6-14.6 [facility] Erythrocyte distribution wid th standard deviationOrdered By: Mere Shaw on 02-10-2024 Erythrocyte distribution width (RBC) [Entitic vol] 40.0 fL 35.1-43.9 [facility] Hematocrit Auto (Bld) [Volum e fraction]Ordered By: Mere Shaw on 02-10-2024 Hematocrit (Bld) [Volume fraction] 36.9 % 37-47 [facility] Immature granulocytes/100 WB C Auto (Bld)Ordered By: Mere Shaw on 02-10-2024 Immature granulocytes/100 WBC (Bld) 0.400 % 0.0-0.9 [facility] Comment on above: IG% - Immature Granu locytes (promyelocytes, myelocytes and metamyelocytes) > 1% indicates that a LEFT SHIFT is Present. Iron measurement (mass/mass) Ordered By: Mere Shaw on 02-10-2024 Iron (Unsp spec) [Mass/Mass] 49 ug/dL 50-170 [facility] Laboratory - Chemistry and C hemistry - challengeOrdered By: Mere Shaw on 02-10-2024 Albumin/Globulin [Mass ratio] 1.0 {ratio} 0.9-2.4 [facility] ALP [Catalytic activity/Vol] 51 U/L 45-117 [facility] ALT [Catalytic activity/Vol] 21 U/L 13-56 [facility] CO2 [Moles/Vol] 28.0 mmol/L 21.0-32.0 [facility] Ferritin [Mass/Vol] 34 ng/mL 8-252 [facility] Globulin (S) [Mass/Vol] 3.5 g/dL 2.2-4.2 [facility] Urea nitrogen/Creatinine [Mass ratio] 15.3 mg/mg 10-20 [facility] Laboratory - CoagulationOrde red By: Mere Shaw on 02-10-2024 INR Coag (Bld) [Relative time] 1.0 {INR} [facility] PT Coag (PPP) [Time] 13.0 s 11.7-14.9 [facility] Laboratory - Hematology and Cell countsOrdered By: Mere Shaw on 02-10-2024 MCH (RBC) [Entitic mass] 28.6 pg 27.0-32.0 [facility] MCHC (RBC) [Mass/Vol] 32.8 g/dL 32-36 [facility] Nucleated RBC/100 WBC (Bld) [Ratio] 0 % 0-5 [facility] Platelet mean volume (Bld) [Entitic vol] 9.6 fL 6.2-12.0 [facility] Platelets (Bld) [#/Vol] 317 10*3/uL 150-450 [facility] No Panel InformationOrdered By: Mere Shaw on 02-10-2024 Estimated GFR (MDRD) Amer 119 mL/min >60 [facility] Comment on above: GFR Calc Estimated GFR (MDRD) Non-Af Amer 98 mL/min >60 [facility] Comment on above: Non- GFR Calc Folate 27.30 ng/mL 3.1-55.4 [facility] Total Iron Binding Capacity 313 ug/dL 250-450 [facility] RBC Auto (Bld) [#/Vol]Ordere d By: Mere Shaw on 02-10-2024 RBC (Bld) [#/Vol] 4.23 10*6/uL 4.2-5.4 [facility] Serum or plasma calcium shruthi urement (mass/volume)Ordered By: Mere Shaw on 02-10-2024 Calcium [Mass/Vol] 8.6 mg/dL 8.5-10.1 [facility] Serum or plasma creatinine m easurement (mass/volume)Ordered By: Mere Shaw on 02-10-2024 Creatinine [Mass/Vol] 0.72 mg/dL 0.55-1.02 [facility] Comment on above: The validity of the calculated GFR & GFRAA in patients over 70 years has not been determined. Clinical correlation is essential. Serum or plasma thyroid stim ulating hormone (TSH) measurement (units/volume)Ordered By: Mere Shaw on 02-10-2024 TSH Qn 0.97 uIU/mL 0.358-3.74 [facility] Serum or plasma thyroxine (T 4) measurement (mass/volume)Ordered By: Mere Shaw on 02-10-2024 T4 [Mass/Vol] 7.4 ug/dL 4.8-13.9 [facility] Serum or plasma urea nitroge n measurement (mass/volume)Ordered By: Mere Shaw on 02-10-2024 Urea nitrogen [Mass/Vol] 11 mg/dL 7-18 [facility] Thin prep Papanicolaou smear with manual screeningOrdered By: Mere Shaw on 02-10-2024 Thin prep Papanicolaou smear with manual screening 3.5 g/dL 3.2-5.0 [facility] Thin prep Papanicolaou smear with manual screening 17 U/L 15-37 [facility] Thin prep Papanicolaou smear with manual screening 4 5-15 [facility] SURGICAL PATHOLOGYOrdered By : Mandeep Pires on 09-20-2023 Case Report Surgical Pathology Report Case: [id number] Authorizing Provider: Calin Rossi MD Collected: 09/16/2023 08:41 AM Ordering Location: Ambulatory Surgery Received: 09/16/2023 11:03 PM Pathologist: Mandeep Pires MD Specimens: A) - STOMACH (GASTRIC) POLYP BIOPSY, polyp B) - Z-LINE BIOPSY, r/o Barretts [facility] Work Phone: FINAL DIAGNOSIS q9zklSMwFXNgaKDqICYc NFxh bfOmUYTzcNNdT1XlostjJByv TB3vDT8yiWnuqEFppRIrLTDg ObXca3tgd226wZWcx6hiASHp RrC5sSZyNPLtzDVnI244l7kd o9ljccKrdKN6zNdcYQPwkxoj RjC3SAakLWKpfqjdBDj3IQzs MEWomTF2QZGjhCPlA0PzVIZh JP5alkb3TWQ1OGldRDCiQlI3 SDRfhNQoVJCoqMicELlbj356 KFP0MyDwLZVrttGhmRlfnH9f XlEcYNAZUdGhY2ZmwKBudDfp bF3bdZQxXKPeu7LtiHfgaKVe DL5pKfFcHIhlUYogOC4bNOUg bJyvDTYaAIlqzQd6GVBrj2Vj JKyanOsno3ksAoxpXMVqaCRd BOAaDIHzUWzfqwRsDDXhm1Hj rXeyiTSwVK1mHT2htEJcVTXo W0FiENrpIkSsdcFqd0q4zcFx RlO5iNEkLZeqs1ZnjBDbhDQq u4DrDRYhZQlewMu4GABta4Tp gQ96ROJ0yW1znFYfWYVlfMlf b1sbHxrtIDBtMGLBnWBaqN92 knAicLMgn1Aon0c4wEFrqRab VMUfVVW8sCJzGXWgdFPrNDln CWsqZ4tmwqjquj5rvTXuuH== [facility] Work Phone: Gross Description h6yniJZqRHAzuQLHOOB5 MDFc MN4cbGqdjNs1nJnyUBPtaqD0 qLSxLEzyi0cvEOC0e5qcziJJ UhkzHWPuRI0gWPeoIARwWT4d ZmUwXGRlZmYxXHBhcGVydzEy RnVhZIVnsEDflJD3JRYdXY2l sxtyQSwmUXpgPTLidaA7HKLm xSSgN9ApRDUiUZ7qdrytRPC6 AJSKMiykMz4soBUzhIyrBrGi ZmNoYXJzZXQwXGZuaWwgQXJp JJg9lA7DTdopITG7VOPRDdxk AenqdDaub9IwdWJcXPEnITvv aWQgNTEwMDAgXFxkYiBPVlIg WgW9QJl2QsqkWTGdDAs6GExd DcTFBRe1ZGN0CUTmEGf3QHis XFxuaCBcXHQgMSBcXGZsIFxc kwH8h7suIDVmrCLlQNK6RXzx s0wyXGvhKOV8BHBmWkSlJZAw CW2VDlRhYPR8EFgbSPR4EpE4 BYq5LGVPOoFkYnIgSHMiKImn UKPqSHp5LKj2BCkBMjPkNTsm HIi0MUL0FbL2KTgeIkGeHGTe UaSaITBvRXUbQRocbQEqLC9h dYaxGRUuWS1FLHDqUNvyDQKe TdCuBC9mB2VNIUXCJYPvS9PG SISGUcztOW6GLNLcCrlKDIYL EQq7nqOrECGgtxTLMupgBFDe LK2SQETqMBxeVCb7xzOyVQQz YaOqPJFqB46hj7UZy7KbIZ9I MDl7ivGzwoqlLVGqTJZptFQF k5DuTGHXRtkiatUvMMRqO9Zr rnFwYVpcQFWdgq4dcGvfFCdt QU6pBETnhOTsJWXwVgX0BJ8j DRSlTmYjnUhio0InEM8nTGV0 cmluZyAwLjIgeCAwLjIgeCAw MxPdR33oGDTuaLFuzZmiq5Hy qDg4iDMdSGyiTR5uEXPoTYMr TXM2BE1ZHzilvVosAdGpzFWb KfD2IGXunMCwYEF1FB8zqYgv AQPhNWy8XGhdECAmX2AyQ5Mz XFxzZyBcXGlkIDUxMDAyIFxc QUTlF2LJQMGlNBo2ToH6EQHq UZj9OXg7EU9UYsAwYPQ0JwTo ZXQ4GJNwVLi1PFifEI7EUMUa KpD1BIcbJKM6VFD8FmY5OPuq qENfNJshm4UyCrSyXJUeEPvn idH1FIZnfmFtq9CwFECfPQXw V7skEkOwDNFTMnfrkySvHSGx BTflGIjPRYXYYP5KC9eqdJQh QR3RCPBtruKuOGcvsQtnoJ5k qMFyR7xiNsMcGbshvGcdZfVm dERvYzEgDQpcbHRycGFyXHNi XfCxGXKbA2woCwAyYC4LCJTu DdScLvOsSBo3NXFlfQ3zHp9i pMHtkY3vLIYjLZ95wAQrzCze FDNhETXnlrOxGbY2GZ0aCHSj ZhNhuUeef9MeDVYnX4GpY2A8 pT3zDADcAKZrPRG7JKNgRSU0 ZQJlNkLdsK3nIB96CMdycZEf gCZhlVD7XJPkmT8rc52mBVDr a4WzpBCnNsTptILcVC4EREEw lqQneLHjbPDuLG1DTSKwjkWA IzhATcGZUOJsoHIkqdS7LDMj ZPJhTLq7IOpqJO5zfEXjFS9Z EBAqqpQUNzsfz4JlPNP6SB6a hkW8fM1tGLBjkrRbdr2kUCNb zYOTeGU2LJupsdVcB5fykbmj DMZ2SMAaTCE5Y5ksJMZKtrVb XZXSrOX9BDqsuwCdPM5VFWY6 KFh7PDBpocGQYyboRBJjBHSa yMEOs9AgOBTWNaomcIcrOxQr eEOeEtY6FKRugLWgHNF2KF1z vRfwTFCuR0AmF5WlvmL5LVHh oaWFOlrgKZYsJK8DLUYfRvFq DQp9 [facility] Work Phone: Performing Lab s8dzsEJzQZJowJCeInHk MDAw LMHiq0kiRDPqjLDrOgSfSwMk TdQoNihcaBCdXRGuOgVok6xb w339fWGab9ozGZBqVtR5hKAd HPZntXEhV569BWXzPPikp8sb d8HzBFCrhVAjv2E0DLUTppcb xAu5xGwxS08wb2X0FbtdB5uh MOHqJXUuJ4GqGY8wSZCkKfm2 CZX8KQI5YLLcWAWqK9FoSQ0n PPEshEZdGRn7b6rroNbgNIBc XTG9c6yeLUxsxaZcPY0iri2q yIx4x0skrgBbZKGlFKAmpUUW GBNyW9IikJvsWt7iuFi8tBir CpqwPGF9Ibu6ZK4syp02maw9 iUziXEJcpqokLrB4SElnFLSm khrbGDh1JBthWMPrrCA1LRYu kQKwK3XmGCIrJJ6wvod1TZE2 WWelSGGmYvX3CDFplNNzURYi sXmpXNdbx000RJY3HdBnQJ1t G2Dpp1T1oZ1fxQNjISJrjPDw VoWrJWMevn8gbMApKJfgh7Zp NHT7jxY8zAGnnFNxDDNcGO45 Okubw0OuTsway6XuK02rnRI1 FQmmw4ocFM1aOoV5upZrHJqy g0ixiE9qUbI0XAwjDH1vUZ5e VVSdsB2xzyipWWVhKhQwclih PRPorGyggwTnSt8lsPlhOXJ2 QZczV4dnaY7eDwF3GLgbR4re sG7kUHg2ADubsGJ8WFBawQ8c PZ5hhnhft4dzWVwyFWuxZGBc mrG5vaF3AZNelCSfF2ZsmK4k FVLgAH1zvxwab2dxCQT4MPct ADYxGGS9PlTpXZTfo0Ooidg2 KeExh4AakKJuDKssD31su382 VZGsfiLzM2klrJZiaxmdpKHt yscoVStiudL3RXCxZIRaFHlj XGYxXGZzMjJcbGFuZzEwMzNc aGljaFxmMVxkYmNoXGYxXGxv J1usUbCdLfKiChCSdDJdin8j rIynWIixvEKgsZGjtHR5fS5o RTRnmzYydx5oOUUtdOPEnBT0 UPskljMuY5ajffhmBGMxGJSr y56qSUwdJeC4WEDlF3NkCGAa Sh1xCPgrHfYkP2v8t26aTIMH GJZ3PNTiFmRcEMOBHGyEDqCm SiEkHEa4RUl9ZTBffmndQDXp pBhcmT5uMcRyGrQcPridMR7j CMBiH5hckCUwSWToXWShQ2sy XfJyiD6fkDkpPDchPfZkNbKe DphrkYGpdJQXMHWkwbS4p1V6 IFxwbGFpblxmMVxmczIyXGxh kiixUNUlXYfaL9sdClQkPDLx rIokOVtfp4DpUKXhCIEsGhNd CGewPKL7m5G1ALPuHLYlsYKW sJL3OPQEQvOzAUAssc7= [facility] Work Phone: [facility] Work Phone: THYROID/PARATHYROID (POC) ENDO USE ONLYon 09-20-2023 [facility] ANES POSTPROC EVALon 023 ANES POSTPROC EVAL HNO ID: [id number] Author: Mirna Lewis APRN.CRNA Service: Anesthesiology Author Type: Nurse [employer] Type: Anesthesia Postprocedure Evaluation Filed: 09/16/2023 8:49 AM Note Text: POST ANESTHESIA EVALUATION NOTE : 1990 Procedure Summary Date: 09/16/23 Room / Location: Ambulatory Surgery Anesthesia Start: 832 Anesthesia Stop: 847 Procedure: EGD DIAGNOSTIC Diagnosis: Ryan's esophagus without dysplasia Scheduled Providers: Calin Rossi MD; Kathi Navarro RN Responsible Provider: Mirna Lewis APRN.CRNA Anesthesia Type: MAC ASA Status: 2 Anesthesia Type: MAC Last Vitals Vitals Value Taken Time BP 106/73 09/16/23 0848 Temp 09/16/23 0848 Pulse 73 09/16/23 0848 Resp 16 09/16/23 0848 SpO2 99 09/16/23 0848 Post Anesthesia Patient Status Patient Evaluation: bedside. Anticipated Disposition: phase 2 then home. Neurological Status: aware and responsive. Pulmonary Status: breathing comfortably on room air Airway Control: returned to baseline unsupported. Cardiovascular Status: stable. Pain Management: clinically adequate Postoperative Hydration: acceptable. Intraoperative Events: no significant anesthesia events Post Operative Nausea/Vomiting Status: no significant post operative nausea or vomiting Recommendation: continue current plan of care. Anesthesia Observations No Documentation SIGNATURE: Mirna Lewis APRN.[employer]IR [employer] W[employer] FILLER PATIENT NAME: Christina Cooper DATE: September 16, 2023 TIME: 8:48 AM CSN: [id number] Normal [facility] EGD Study observation Narrat iveon 09-16-2023 [facility] Gastroenterology Gastrointestinal Endoscopy Patient Name: Christina Cooper Procedure Date: 09/16/2023 8:32 AM Date of : 1990 Admit Type: Outpatient Age: 33 Room: [facility] 2 Gender: Female Note Status: Finalized Attending MD: Calin Rossi MD Procedure: Upper GI endoscopy Indications: Follow-up of Ryan's esophagus Providers: Calin Rossi MD Patient Profile: This is a 33 year old female. Refer to note in patient chart for documentation of history and physical. Referring Physician: Calin Rossi MD (Referring MD) Medicines: Monitored Anesthesia Care Complications: No immediate complications. Requesting Provider: Procedure: Pre-Anesthesia Assessment: - Prior to the procedure, a History and Physical was performed, and patient medications and allergies were reviewed. The patient is competent. The risks and benefits of the procedure and the sedation options and risks were discussed with the patient. All questions were answered and informed consent was obtained. Patient identification and proposed procedure were verified by the physician, the nurse, the autocad designer and the isotope technician in the procedure room. Mental Status Examination: alert and oriented. Airway Examination: normal oropharyngeal airway and neck mobility. Respiratory Examination: clear to auscultation. CV Examination: normal. Prophylactic Antibiotics: The patient does not require prophylactic antibiotics. Prior Anticoagulants: The patient has taken no anticoagulant or antiplatelet agents. ASA Grade Assessment: II - A patient with mild systemic disease. After reviewing the risks and benefits, the patient was deemed in satisfactory condition to undergo the procedure. The anesthesia plan was to use monitored anesthesia care (MAC). Immediately prior to administration of medications, the patient was re-assessed for adequacy to receive sedatives. The heart rate, respiratory rate, oxygen saturations, blood pressure, adequacy of pulmonary ventilation, and response to care were monitored throughout the procedure. The physical status of the patient was re-assessed after the procedure. After obtaining informed consent, the endoscope was passed under direct vision. Throughout the procedure, the patient's blood pressure, pulse, and oxygen saturations were monitored continuously. The Endoscope was introduced through the mouth, and advanced to the second part of duodenum. I was present and participated during the entire procedure, including non-zamora portions, and during the administration and monitoring of Moderate Sedation. The upper GI endoscopy was accomplished without difficulty. The patient tolerated the procedure well. Moderate Sedation: MAC anesthesia was administered by the anesthesia team. Findings: The hypopharynx was normal. The examined esophagus was normal. The Z-line was variable and was found 37 cm from the incisors. Biopsies were taken with a cold forceps for histology. A small hiatal hernia was present. A few 6 mm sessile polyps with no stigmata of recent bleeding were found in the gastric body. Biopsies were taken with a cold forceps for histology. The cardia and gastric fundus were normal on retroflexion. The examined duodenum was normal. Biopsies were taken with a cold forceps for histology. Impression: - Normal hypopharynx. - Normal esophagus. - Z-line variable, 37 cm from the incisors. Biopsied. History of short segment Ryan's esophagus - Small hiatal hernia. - A few gastric polyps. Biopsied. - Normal examined duodenum. Biopsied. Recommendation: - Await pat (more content not included)... [employer]OVATION [facility] Radiology Study observation (narrative) [facility] HISTORY PHYSICALon HISTORY PHYSICAL HNO ID: [id number] Author: Calin Rossi MD Service: Gastroenterology Author Type: Physician Type: HANDP Filed: 09/16/2023 8:34 AM Note Text: SEDATION HISTORY AND PHYSICAL EXAM SERVICE DATE: 09/16/2023 SERVICE TIME: 8:33 AM Subjective HPI: This is a 33 year old female who presents with Ryan's esophagus PAST ANESTHESIA HISTORY: No history of adverse event PAST MEDICAL HISTORY Diagnosis Date Hyperthyroidism Hyperthyroidism affecting in third trimester Other acne Post-surgical hypothyroidism Proteinuria since recent Toxic thyroid nodule PAST SURGICAL HISTORY Procedure Laterality Date COLONOSCOPY DIAGNOSTIC 09/2021 COLONOSCOPY DIAGNOSTIC 01/2012 EGD DIAGNOSTIC 09/2021 EGD DIAGNOSTIC 09/2022 SCLEROTHERAPY MULT VEINS Left 02/17/2019 THYROIDECTOMY TOTAL/COMPLETE Left 12/14/2018 partial Prior to Admission medications as of 09/16/23 0739 Medication Sig Last Dose Taking atomoxetine (STRATTERA) 18 mg capsule Take by mouth. 09/15/[address] (PROTONIX) 20 mg tablet Take 1 tablet by mouth two times a day before meals. 09/15/2023 Yes citalopram (CELEXA) 20 mg tablet Take by mouth once daily. 09/15/2023 Yes SYNTHROID 75 mcg tablet Take 1 tablet by mouth once daily. 09/16/2023 Yes Loperamide HCl (IMODIUM) 2 mg tab Take as directed. ALLERGIES No Known Allergies Objective PHYSICAL EXAM: The remainder of the physical exam is noncontributory. AIRWAY: Airway Visualization of Uvula: Yes Mouth opening greater than 2 fingerbreadths: Yes Neck Full Range of Motion: Yes LUNGS: Lungs clear to auscultation CARDIAC: Regular rhythm,Regular rate Assessment/Plan ASA Class: ASA Class:: Patient with mild systemic disease Active Problems: Ryan's esophagus Provisional Diagnosis/Treatment Plan: EGD with biopsies Procedure was discussed with the patient including risks of oversedation, bleeding, and perforation. Patient agreed to proceed. SEDATION GOAL: Anesthesia SIGNATURE: Calin Rossi MD PATIENT NAME: Christina Cooper DATE: September 16, 2023 TIME: 8:33 AM [facility] NURSING PROGon 09-16-2023 NURSING PROG HNO ID: [id number] Author: Eliza Almendarez RN Service: ? Author Type: Registered Nurse Type: Nursing Progress Note Filed: 09/16/2023 9:06 AM Note Text: POST OP LEARNING RESPONSE INSTRUCTION PROVIDED TO: Patient and family member METHOD OF INSTRUCTION: Written instruction - handouts Verbal instruction PATIENT / FAMILY RESPONSE: Information received as demonstrated by interest and questions FOLLOW-UP PLAN: Patient instructed to call with any further issues SUPPLEMENTAL MATERIAL: None REFERRAL (RECOMMENDATION): None Electronically Signed By: Eliza Almendarez RN In Department: AMBULATORY SURGERY Normal [facility] NURSING PROG HNO ID: [id number] Author: Anat Esquivel RN Service: ? Author Type: Registered Nurse Type: Nursing Progress Note Filed: 09/16/2023 7:42 AM Note Text: PRE OP LEARNING ASSESSMENT PROCEDURE/SURGERY: GI PROCEDURES: EGD READINESS TO LEARN COGNITIVE ABILITY: Alert and oriented MOTIVATION TO LEARN: Interested FAMILY SUPPORT: High - Very involved in pt care PATIENT LEARNS BEST BY: Individual Instruction Verbal Instruction FACTORS AFFECTING LEARNING: None PHYSICAL LIMITATIONS AFFECTING LEARNING: None -declines need for f/u phone call Electronically Signed By: Anat Esquivel RN In Department: AMBULATORY SURGERY Normal [facility] SURGICAL PATHOLOGYon CASE REPORT Normal [facility] Comment on above: Order Comment: Speci men Type: TISSUE SPECIMEN Ordering Facility: [facility] Address: [address] [place] [address] Result Comment: Surg [facility] Pathology Report Case: [id number] Authorizing Provider: Calin Rossi MD Collected: 09/16/2023 08:41 AM Ordering Location: Ambulatory Surgery Received: 09/16/2023 11:03 PM Pathologist: Mandeep Pires MD Specimens: A) - STOMACH (GASTRIC) POLYP BIOPSY, polyp B) - Z-LINE BIOPSY, r/o Barretts Performed By: #### S #### [facility] CLIA [id number] [address] [place] [address] LAB CLIA [id number] [address] [place] [address] FINAL DIAGNOSIS Normal [facility] Comment on above: Order Comment: Speci men Type: TISSUE SPECIMEN Ordering Facility: [facility] Address: [address] [place] [address] Result Comment: A. S tomach, polyp, biopsy: - Fundic gland polyp, negative for dysplasia. B. Z-line, biopsy: - Inflamed cardiac and oxyntic type gastric mucosa, negative for intestinal metaplasia. - Squamous mucosa with mild reactive epithelial changes. Performed By: #### S #### [facility] CLIA [id number] [address] [place] [address] [place] [facility] CLIA [id number] [address] [place] [address] OF [place] Normal [facility] Comment on above: Order Comment: Speci men Type: TISSUE SPECIMEN Ordering Facility: [facility] Address: [address] [place] [address] Result Comment: Diag nostic interpretation performed at [facility], [address] [place] [address] CLIA# [id number] Learning And Development Consultant: Tracy Lepe M.D. Performed By: #### S #### [facility] CLIA [id number] [address] [place] [address] [place] [facility] CLIA [id number] [address] [place] [address] [place] [facility] Normal [facility] Comment on above: Order Comment: Speci men Type: TISSUE SPECIMEN Ordering Facility: [facility] Address: [address] [place] [address] Result Comment: A. S TOMACH (GASTRIC) POLYP BIOPSY Received in formalin is one piece of new, soft tissue measuring 0.2 x 0.2 x 0.2 cm. Totally submitted in one cassette. B. Z-LINE BIOPSY Received in formalin are multiple pieces of new, soft tissue aggregating to 0.5 x 0.4 x 0.2 cm. Totally submitted in one cassette. JTS September 17, 2023 9:58 AM [place] [address] Performed By: #### S #### [facility] CLIA [id number] [address] [place] [address] [place] [facility] CLIA [id number] [address] [place] [address] [place] Upper GI endoscopy 07- [address] [facility] Gastroenterology Gastrointestinal Endoscopy Patient Name: Christina Cooper Procedure Date: 09/16/2023 8:32 AM Date of : 1990 Admit Type: Outpatient Age: 33 Room: [place] [address] Gender: Female Note Status: Finalized Attending MD: Calin Rossi MD Procedure: Upper GI endoscopy Indications: Follow-up of Ryan's esophagus Providers: Calin Rossi MD Patient Profile: This is a 33 year old female. Refer to note in patient chart for documentation of history and physical. Referring Physician: Calin Rossi MD (Referring MD) Medicines: Monitored Anesthesia Care Complications: No immediate complications. Requesting Provider: Procedure: Pre-Anesthesia Assessment: - Prior to the procedure, a History and Physical was performed, and patient medications and allergies were reviewed. The patient is competent. The risks and benefits of the procedure and the sedation options and risks were discussed with the patient. All questions were answered and informed consent was obtained. Patient identification and proposed procedure were verified by the physician, the nurse, the autocad designer and the isotope technician in the procedure room. Mental Status Examination: alert and oriented. Airway Examination: normal oropharyngeal airway and neck mobility. Respiratory Examination: clear to auscultation. CV Examination: normal. Prophylactic Antibiotics: The patient does not require prophylactic antibiotics. Prior Anticoagulants: The patient has taken no anticoagulant or antiplatelet agents. ASA Grade Assessment: II - A patient with mild systemic disease. After reviewing the risks and benefits, the patient was deemed in satisfactory condition to undergo the procedure. The anesthesia plan was to use monitored anesthesia care (MAC). Immediately prior to administration of medications, the patient was re-assessed for adequacy to receive sedatives. The heart rate, respiratory rate, oxygen saturations, blood pressure, adequacy of pulmonary ventilation, and response to care were monitored throughout the procedure. The physical status of the patient was re-assessed after the procedure. After obtaining informed consent, the endoscope was passed under direct vision. Throughout the procedure, the patient's blood pressure, pulse, and oxygen saturations were monitored continuously. The Endoscope was introduced through the mouth, and advanced to the second part of duodenum. I was present and participated during the entire procedure, including non-zamora portions, and during the administration and monitoring of Moderate Sedation. The upper GI endoscopy was accomplished without difficulty. The patient tolerated the procedure well. Moderate Sedation: MAC anesthesia was administered by the anesthesia team. Findings: The hypopharynx was normal. The examined esophagus was normal. The Z-line was variable and was found 37 cm from the incisors. Biopsies were taken with a cold forceps for histology. A small hiatal hernia was present. A few 6 mm sessile polyps with no stigmata of recent bleeding were found in the gastric body. Biopsies were taken with a cold forceps for histology. The cardia and gastric fundus were normal on retroflexion. The examined duodenum was normal. Biopsies were taken with a cold forceps for histology. Impression: - Normal hypopharynx. - Normal esophagus. - Z-line variable, 37 cm from the incisors. Biopsied. History of short segment Ryan's esophagus - Small hiatal hernia. - A few gastric polyps. Biopsied. - Normal examined duodenum. Biopsied. Recommendation: - Await pathology results. - Continue present medications. - Follow an antireflux regimen. - Repeat upper endoscopy in 2 years for surveillance based on pathology results. - Discharge patient to home (ambulatory). Procedure Code(s): --- Professional --- 88351, Esophagogastroduodenosco py, flexible, transoral; with biopsy, single or multiple Diagnosis Code(s): --- Professional --- K22.70, Ryan's esophagus without dysplasia K22.89, Other specified disease of esophagus K44.9, Diaphragmatic hernia without obstruction or gangrene K31.7, Polyp of stomach and duodenum CPT copyright 2020 [employer]. All rights reserved. The codes documented in this report are preliminary and upon loom winder tender review may be revised to meet current compliance requirements. Scope In: 8:39:51 AM Scope Out: 8:45:35 AM Calin Rossi MD 09/16/2023 9:01:55 AM This report has been signed electronically by Calin Rossi MD Number of Addenda: 0 Note Initiated On: 09/16/2023 8:32 AM Estimated Blood Loss: Estimated blood loss: none. Normal [facility] T4 Free SerPl-mCncon 023 Free T4 [Mass/Vol] 1.4 ng/dL Normal 0.9-1.7 [facility] Comment on above: Order Comment: Monica sewell Type: BLOOD SPECIMEN Ordering Facility: [facility] Address: [address] [place] [address] Performed By: #### 3 016-3, 3024-7 #### [facility] CLIA [id number] [address] [place] [address] [place] TSH SerPl-aCncon 09-14-2023 TSH Qn 1.250 m[IU]/L Normal 0.270-4.200 [facility] Comment on above: Order Comment: Monica sewell Type: BLOOD SPECIMEN Ordering Facility: [facility] Address: [address] [place] [address] Result Comment: If t he patient is , TSH reference range varies by gestational period: First Trimester (weeks 9-12): 0.180-2.990 mIU/L Second Trimester: 0.110-3.980 mIU/L Third Trimester: 0.480-4.710 mIU/L Jorge Royal et al. A Practical Approach for the Verifications and Determination of Site- and Trimester-Specific Reference Intervals for Thyroid Function tests in . Thyroid, 2019:29:3:412-420. Jason Vázquez et al. 2017 Guidelines of the [employer] for the Diagnosis and Management of Thyroid Disease during and the . Thyroid, 2017:27:3:315-389. Performed By: #### 3 016-3, 3024-7 #### [facility] CLIA [id number] [address] [place] [address] [place] ANES PRE-OPon 08-18-2023 ANES PRE-OP HNO ID: [id number] Author: Mirna Lewis APRN.AIR AND WATER FILLER Service: Anesthesiology Author Type: Nurse Grain Mill Products Inspector Type: Anesthesia Preprocedure Evaluation Filed: 09/16/2023 8:31 AM Note Text: ANESTHESIOLOGY DAY OF SURGERY NOTE : 1990 Procedure Information Date/Time: 09/16/23 0815 Scheduled providers: Calin Rossi MD Procedure: EGD DIAGNOSTIC Location: Ambulatory Surgery Estimated body mass index is 21.37 kg/m? as calculated from the following: Height as of 09/14/22: 167.6 cm (5' 6). Weight as of 09/14/22: 60.1 kg (132 lb 6.4 oz). Most recent hematocrit and potassium results: Hematocrit 44.8 07/18/2018 Potassium 4.3 08/04/2021 Relevant Problems Oncology (+) Thyroid cancer (HCC) Other (+) History of partial thyroidectomy Ryan's esophagus I - PHYSICAL EVALUATION AIRWAY Patient intubated: No. Tracheostomy tube not present Mallampati: II. TM distance: >3 FB. Neck ROM: full ROM without neurological symptoms. Mouth opening: adequate. DENTAL Dental findings: teeth intact. Additional exam findings: no II - ANESTHESIA PLAN ASA Score: 2 Anesthetic Plan: MAC The patient is not a current smoker. NPO Status: adequate Beta Krys Monitoring Plan Monitoring plan: standard ASA. Post Procedure Analgesic Plan Postoperative analgesic plan: per surgical service. Informed Consent Anesthetic risks, benefits, alternatives, personnel and consent discussed: yes. Patient / Responsible Republican agrees to proceed: yes Patient / Surrogate agrees to blood products: blood products not planned Significant changes in the patient condition since the History and Physical, not otherwise documented in primary service progress note: no. Potential Anesthesia issues that may suggest increased risk of complications or contraindication to planned procedure: none. No vitals data found for the desired time range. Outpatient Medications as of 09/16/2023 Medication Sig - pantoprazole DR (PROTONIX) 20 mg tablet Take 1 tablet by mouth two times a day before meals. - citalopram (CELEXA) 20 mg tablet Take by mouth once daily. - SYNTHROID 75 mcg tablet Take 1 tablet by mouth once daily. - Loperamide HCl (IMODIUM) 2 mg tab Take as directed. No current facility-administered medications on file as of 09/16/2023. I have interviewed and examined the patient. I have reviewed the medical record and/or the pre-anesthesia evaluation, pertinent labs, and test results. This contains updated information obtained within 48 hours of Surgery/Procedure. SIGNATURE: Gaby Morelos APRN.AIR AND WATER FILLER PATIENT NAME: Christina Cooper DATE: August 18, 2023 TIME: 3:09 PM CSN: [id number] [facility] 08-12-2023 DEJA Telephone (ABUNDIO) -------- ALLISONCHRISTINA ([id number]) 1990 F Date Time Provider Department 08/12/23 CALIN ROSSI During your visit today, we recorded the following information about you: Dia Palomino RN 08/12/2023 10:48 AM Signed Calin Rossi MD O'Neill, Cindi, RN Please get EGD report from Dia Pina RN 08/31/2023 11:44 AM Signed Attempted to call pt no answer. Left detailed message on pt personal VM that we need name of location of EGD in [place] to get report advised to call back or reply to my chart message Dia Palomino RN 08/31/2023 1:14 PM Signed Spoke with [place] office. They will fax EGD and BX results to our office Dia Palomino RN 08/31/2023 2:49 PM Signed 09-24-[address] Mason Kramer Impression Esophageal mucosal changes consistent with Barretts Erythematous mucosa in the antrum Normal second portion of the duodenum PATH- Distal esoph- no evidence of dysplasia, GE junction with chronic inflammation, golet cell metaplasia consisitant with Ryan's Gastrin antrum bx- neg HP, chronic gastritis/ 09-11-2021 EGD/Colonoscopy Dr Mason Kramer Impression LA Grade A reflux esophagitis Gastritis Normal second portion of the duodenum Congested mucosa in the sigmoid colon Mild Colonic spasm consistent with IBS Congested mucosa in the TI PATH- Duodenum- fragments of dudenal mucosa no pathologic dx Antrum- mild gastritis- Neg HP Distal esophageal bx- gocal intestinal metaplasia consistent with Ryan's esophagus. Negative for dysplasia Moderate chronic inflammation TI- fragments of small intestinal mucosa Colon random- no pathologic diagnosis Allergies As of Date: 08/12/2023 (No Known Allergies) Date Reviewed: 08/02/2023 Reviewed by: Calin Rossi MD - Fully Assessed Reason for Visit: Request Outside Medical Records [[id number]] Prescriptions as of 08/31/2023 - pantoprazole DR (PROTONIX) 20 mg tablet Take 1 tablet by mouth two times a day before meals. - citalopram (CELEXA) 20 mg tablet Take by mouth once daily. - SYNTHROID 75 mcg tablet Take 1 tablet by mouth once daily. - Loperamide HCl (IMODIUM) 2 mg tab Take as directed. 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] 09/14/2022 Nodular goiter [E04.9] 05/23/2018 01/09/2019 Thyroid mass [E07.9] 11/10/2018 12/15/2018 History of partial thyroidectomy [E89.0] 01/09/2019 History of hyperthyroidism [Z86.39] 01/09/2019 09/16/2020 Thyroid cancer (HCC) [C73] 01/09/2019 Postoperative hypothyroidism [E89.0] 03/13/2019 Encounter Status:Closed by DIA PALOMINO on 08/31/23 [facility] CNOVon 08-02-2023 CNOV Office Visit (GASTNO ) -------- CHRISTINA COOPER ([id number]) 1990 F Date Time Provider Department 08/02/23 10:45 AM CALIN ROSSI During your visit today, we recorded the following information about you: Calin Rossi MD 08/02/2023 11:12 AM Addendum Chief Compliant: Christina Cooper, 33 year old female, presents in the office today at the request of Mehdi Rivera for Ryan's esophagus. My final recommendations will be communicated back to the requesting physician by the way of the shared medical record, fax, or via US Mail. HPI: Christina Cooper is a 33 year old female who presents for [facility] care IBS-D, left thyroid lobectomy in 2019 with pathology demonstrating a microscopic focus of papillary thyroid cancer measuring 4mm. Also history of palpitations and a fine tremor that improved with methimazole IBS-D was diagnosed about 11 years ago Had colonoscopy at that time was normal . No biopsies were taken Was informed to take imodium as needed Symptoms were severe until she was diagnosed with Ryan's esophagus this was 2 years ago Since then she has been on protonix 40mg daily Since then the postprandial abd cramps and diarrhea had improved dramatically Currently she has one bowel movement daily Stool is formed No fecal urgency No abdominal pain or cramps Last EGD was Sep 2022 for Ryan's surveillance Went to ER few days after the EGD due to not being able to get PPI refill and had severe heartburn after the EGD Brother, maternal grandmother and maternal great grandmother all with UC. Brother required surgery (total colectomy age 37) Negative celiac serology Normal SBFT in 2019 Colonoscopy more than 10 years ago No report is available Previous OV Previous Procedures: 09-24-[address] Mason Kramer Impression Esophageal mucosal changes consistent with Barretts Erythematous mucosa in the antrum Normal second portion of the duodenum PATH- Distal esoph- no evidence of dysplasia, GE junction with chronic inflammation, golet cell metaplasia consisitant with Ryan's Gastrin antrum bx- neg HP, chronic gastritis/ 09-11-2021 EGD/Colonoscopy Dr Mason Kramer Impression LA Grade A reflux esophagitis Gastritis Normal second portion of the duodenum Congested mucosa in the sigmoid colon Mild Colonic spasm consistent with IBS Congested mucosa in the TI PATH- Duodenum- fragments of dudenal mucosa no pathologic dx Antrum- mild gastritis- Neg HP Distal esophageal bx- gocal intestinal metaplasia consistent with Ryan's esophagus. Negative for dysplasia Moderate chronic inflammation TI- fragments of small intestinal mucosa Colon random- no pathologic diagnosis Previous Imaging: ALLERGIES No Known Allergies citalopram (CELEXA) 20 mg tablet Take by mouth once daily. SYNTHROID 75 mcg tablet Take 1 tablet by mouth once daily. pantoprazole DR (PROTONIX) 40 mg tablet Take 40 mg by mouth once daily. levothyroxine (SYNTHROID) 75 mcg tablet Take 1 tablet by mouth once daily. Loperamide HCl (IMODIUM) 2 mg tab Take as directed. HISTORIES: FAMILY HISTORY Problem Relation Age of Onset Diabetes Sister Type II Diabetes Maternal Grandmother other (Rheumatoid Arthritis) Maternal Grandmother Cancer Maternal Grandfather lung PAST MEDICAL HISTORY Diagnosis Date Hyperthyroidism Hyperthyroidism affecting in third trimester Other acne Post-surgical hypothyroidism Proteinuria since recent Toxic thyroid nodule PAST SURGICAL HISTORY Procedure Laterality Date SCLEROTHERAPY MULT VEINS Left 02/17/2019 THYROIDECTOMY TOTAL/COMPLETE Left 12/14/2018 partial Social History Tobacco Use Smoking status: Never Smokeless tobacco: Never Substance Use Topics Alcohol use: No Drug use: No REVIEW OF SYSTEMS: General:No weight loss, malaise or fevers Respiratory: Negative for cough, hemoptysis, wheezing or shortness of breath Cardiovascular: Negative for chest pain, leg swelling or palpitations Gastrointestinal: No nausea, vomiting, or diarrhea Genitourinary: No history of dysuria, frequency or incontinence Musculoskeletal: Negative for joint pain or swelling, back pain or muscle pain Neurologic:Negative for focal numbness or weakness, headaches and dizziness or syncope. Skin:Negative for lesions, rash, and itching Psychiatric: anxiety Hematologic/Lymph:Negati ve for prolonged bleeding, bruising easily or swollen nodes Endocrine: see HPI PHYSICAL EXAMINATION: [facility] 11/01/2019 General appearance: Well appearing, alert, in no acute distress, well-hydrated, well nourished. Skin: Skin color, texture, turgor normal, no suspicious rashes or lesions Head: Normocephalic, no masses, lesions, tenderness or abnormalities Eyes: Anicteric sclera. Pupils are equally round and reactive to light. Extraocular movements are intact. Ears (more content not included)... Normal [facility] Absolute lymphocyte counton 09-29-2022 Lymphocytes Auto (Unsp spec) [#/Vol] 1.26 10*3/uL 0.83-4.51 [facility] Work Phone: Basophil percentageon 2021 Basophils/100 WBC (Bld) 0.5 % 0-1 [facility] Work Phone: [phone] Chloride [Moles/Vol] 105 mmol/L 98-107 [facility] Work Phone: [phone] Eosinophils/100 WBC (Bld) 0.0 % 0-5 [facility] Work Phone: [phone] Glucose [Mass/Vol] 102 mg/dL 74-106 [facility] Work Phone: Comment on above: Fasting Glucose resu lt from 100 to 125 mg/dL suggests IMPAIRED HOMEOSTASIS per A.D.A. criteria. Neutrophils (Bld) [#/Vol] 5.8 10*3/uL 2.0-7.7 [facility] Work Phone: Neutrophils/100 WBC (Bld) 77.3 % 47-70 [facility] Work Phone: [phone] Potassium [Moles/Vol] 4.3 mmol/L 3.5-5.1 [facility] Work Phone: Comment on above: Moderate Hemolysis, Result may be falsely increased. Sodium [Moles/Vol] 137 mmol/L 136-145 [facility] Work Phone: WBC (Bld) [#/Vol] 7.5 10*3/uL 4.4-11.0 [facility] Work Phone: Blood erythrocytes count (nu mber/volume)on 09-29-2022 RBC (Bld) [#/Vol] 4.77 10*6/uL 4.2-5.4 [facility] Work Phone: Blood hemoglobin measurement (mass/volume)on 09-29-2022 Hemoglobin (Bld) [Mass/Vol] 14.7 g/dL 12.0-15.0 [facility] Work Phone: Blood lymphocytes/100 leukoc yteson 09-29-2022 Lymphocytes/100 WBC (Bld) 16.7 % 19-41 [facility] Work Phone: Blood monocytes/100 leukocyt eson 09-29-2022 Monocytes/100 WBC (Bld) 5.4 % 0-10 [facility] Work Phone: Blood platelet mean volumeon 09-29-2022 Platelet mean volume (Bld) [Entitic vol] 9.6 fL 6.2-12.0 [facility] Work Phone: Determination of erythrocyte mean corpuscular volume (MCV)on 09-29-2022 MCV (RBC) [Entitic vol] 89.7 fL 81-99 [facility] Work Phone: Hematocrit Auto (Bld) [Volum e fraction]on 09-29-2022 Hematocrit (Bld) [Volume fraction] 42.8 % 37-47 [facility] Work Phone: Laboratory - Chemistry and C hemistry - challengeon 09-29-2022 CO2 [Moles/Vol] 27.0 mmol/L 21.0-32.0 [facility] Work Phone: [phone] Lipase [Catalytic activity/Vol] 66 U/L 73-393 [facility] Work Phone: Urea nitrogen/Creatinine [Mass ratio] 7.8 mg/mg 10-20 [facility] Work Phone: Laboratory - Hematology and Cell countson 09-29-2022 Erythrocyte distribution width (RBC) [Entitic vol] 39.8 fL 35.1-43.9 [facility] Work Phone: Erythrocyte distribution width (RBC) [Ratio] 12.1 % 11.6-14.6 [facility] Work Phone: Immature granulocytes/100 WBC (Bld) 0.100 % 0.0-0.9 [facility] Work Phone: Comment on above: IG% - Immature Granu locytes (promyelocytes, myelocytes and metamyelocytes) > 1% indicates that a LEFT SHIFT is Present. MCH (RBC) [Entitic mass] 30.8 pg 27.0-32.0 [facility] Work Phone: Nucleated RBC/100 WBC (Bld) [Ratio] 0 % 0-5 [facility] Work Phone: MCHC Auto (RBC) [Mass/Vol]on 09-29-2022 MCHC (RBC) [Mass/Vol] 34.3 g/dL 32-36 [facility] Work Phone: No Panel Informationon 09-29 Estimated Creatinine Clearance Calc 94.36 ml/min [facility] Work Phone: Estimated GFR (MDRD) Amer 110 mL/min >60 [facility] Work Phone: Comment on above: GFR Calc Estimated GFR (MDRD) Non-Af Amer 91 mL/min >60 [facility] Work Phone: Comment on above: Non- GFR Calc Platelets bldon 09-29-2022 Platelets (Bld) [#/Vol] 285 10*3/uL 150-450 [facility] Work Phone: Serum or plasma calcium shruthi urement (mass/volume)on 09-29-2022 Calcium [Mass/Vol] 10.0 mg/dL 8.5-10.1 [facility] Work Phone: Serum or plasma creatinine m easurement (mass/volume)on 09-29-2022 Creatinine [Mass/Vol] 0.77 mg/dL 0.55-1.02 [facility] Work Phone: Comment on above: The validity of the calculated GFR & GFRAA in patients over 70 years has not been determined. Clinical correlation is essential. Serum or plasma urea nitroge n measurement (mass/volume)on 09-29-2022 Urea nitrogen [Mass/Vol] 6 mg/dL 7-18 [facility] Work Phone: Thin prep Papanicolaou smear with manual screeningon 09-29-2022 Thin prep Papanicolaou smear with manual screening 5 5-15 [facility] Work Phone: Laboratory - Chemistry and C hemistry - challengeon 09-24-2022 HCG ( test) Ql (U) Negative [facility] Work Phone: Comment on above: Very dilute urine sp ecimens, as indicated by a low specificgravity, may not contain employee representative levels of hCG. If is still suspected, a first morning urinespecimen should be collected 48 hours later and tested. Surgical Tissue Examon 12-14 Surgical Tissue Exam Test performed at [place] [address] NAME: ALLISON CHRISTINA REQUESTING: JOAO MORRIS M.D. 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 -NO ANGIOLYMPHATIC INVASION OR EXTRATHYROIDAL EXTENSION. -INKED EDGES FREE OF CARCINOMA. -MULTINODULAR HYPERPLASIA . -NO PARATHYROID GLAND TISSUE IDENTIFIED. -ONE LYMPH NODE NEGATIVE FOR CARCINOMA (0/1). -SEE COMMENT AND SYNOPTIC REPORT. COMMENT: Dr. Jonny Samano has reviewed select slides and concurs. Thyroid Gland Cancer Case Summary Procedure: Left lobectomy. Tumor focality: Unifocal. Tumor site: Left lobe. Tumor size: Greatest dimension: 4 mm. Histologic type: Papillary carcinoma, classical type. Margins: Uninvolved by carcinoma. Angioinvasion: Not identified. Lymphatic invasion: Not identified. Mitotic rate: 1 / 10 hpf. Perineural invasion: Not identified. Extrathyroidal extension: Not identified. Regional lymph nodes: Number examined: 1. Number involved: 0. Pathologic Stage: pT1a, N0, MX. Additional pathologic findings: Nodular follicular disease. OPERATIVE PROCEDURE: Lobectomy thyroid total, unilateral with/without isthmusectomy, nerve integrity monitoring, S&I intraoperative ultrasound guidance CLINICAL INFORMATION: Thyroid mass [E07.9] GROSS DESCRIPTION: Left thyroid lobe Received in formalin labeled left thyroid lobe is a left lobe measuring 5 x 5 x 3 cm overall and weighing 28 gm. The isthmus measures 1.5 x 1.0 x 0.5 cm and the left lobe measures 5 x 3.5 x 3.0 cm. The isthmal line of resection is inked green. The capsule is inked black. The specimen is serially sectioned revealing a well-encapsulated new-red solid mass measuring 5 x 3 x 3 cm. The uninvolved parenchyma appears dark brown and firm. No calcification is seen. Food Cashier sections are submitted as follows: 1 - shaved isthmal margin of resection; 2 - remainder of isthmus; 3-17 - mass capsule, totally submitted from inferior aspect towards superior; 18 - non-marginal cross section of mass; 19 - uninvolved superior pole. [facility]:eleazar LEÓN M.D. (Electronic signature on file) Signed out: 12/20/2018 15:26 PRINTED: 12/20/2018 Page 1 of 1 Normal [facility] Comment on above: Performed By: #### S URG #### [place] [address] Progress Noteon 04-04-2018 Respiratory Physician Authentication Interface Message Text DOS: 04/04/2018COMANAGEMENT PROGRESS NOTECHIEF COMPLAINT: Hyperthyroidism in pregnancyHISTORY OF PRESENT ILLNESS:Christina is a 28 y.o. female at 38w1d who presents for comanagementvisit of hyperthyroidism. She denies any signs/symptoms of hyperthyroid.Christina also denies any obstetric complaints today and reports normal fetalmovement. [facility]:Current Outpatient Prescriptions: Methimazole (TAPAZOLE) 5 MG tablet. Take 7.5 mg by mouth daily. Prenat w/o G-LU-Oknebax-FA-DHA (PNV-DHA PO), Take 1 Tab by mouth daily Pyridoxine HCl (VITAMIN B-6 PO), Take 25 mg by mouth 2 times dailyALLERGY:No Known AllergiesREVIEW OF SYSTEMS:Pertinent items are noted in HPI.PHYSICAL EXAM:VITAL SIGNS: BP 110/74 Ht 170.2 cm Wt 77.5 kg (170 lb 14.4 oz) LMP1 ? Unknown BMI 26.76 kg/m IMAGING:Estimated weight and amniotic fluid volume are appropriate for gestationalage. Biophysical profile is 8.LABS:Orders Only on 03/30/2018Component Date Value Ref Range Status POCT Protein, Urine 04/04/2018 1+ (30mg/dL)* Negative - Trace mg/dl Final POCT Blood, Urine 04/04/2018 Negative Negative Final POCT Ketones, Urine 04/04/2018 Negative Negative mg/dl Final POCT Glucose, Urine 04/04/2018 Negative Negative mg/dl FinalOrders Only on 03/09/2018Component Date Value Ref Range Status POCT Protein, Urine 03/14/2018 Trace Negative - Trace mg/dl Final POCT Blood, Urine 03/14/2018 Negative Negative Final POCT Ketones, Urine 03/14/2018 Negative Negative mg/dl Final POCT Glucose, Urine 03/14/2018 Negative Negative mg/dl FinalLabs 03/30/18TSH: <0.01Free T4: 1.59Free T3: 5.83IMPRESSION:Christina is a 28 y.o. female at 38w1d withActive Non-Hospital Problems Diagnosis Date Noted Proteinuria affecting 12/13/2017 24 hour urine protein 344 on 12/13/17 Precautions reviewed with pt. Supervision of other high risk , antepartum 11/15/2017 MD/OB APPOINTMENTSHow often should patient be evaluated? Comanage every 4 weeksWork restrictions: NoneFETAL EVALUATIONAntenatal surveillance: Weekly at 32 weeksUltrasound: Growth every 4 weeksDELIVERY PLANHospital: [facility] HospitalInduction scheduled at 39 weeks Hyperthyroidism affecting 10/18/2017 Currently taking methimazole 7.5 mg PO daily. Thyroid studies on 03/30/18 showed elevated free T4 at 1.59 (previously 1.51and 1.47). Will increase to methimazole to 10 mg per day. Plan of care reviewedwith Dr. Ramon. Christina was advised to continue 10 mg per day until herEndocrinology appointment on 05/23/18. She will have thyroid studies drawn 1 weekbefore this visit. Christina now seeing Dr[facility] at [facility]([phone]) . Per current guidelines (ACOG, Endocrine Society, and SHELL) goal is to maintainFree T4 at or slightly above the reference range in non individuals. Hx of thyroid nodule 10/18/2017 Irritable bowel syndrome (IBS) 10/18/2017Follow up with MFM as clinically indicated.The total patient time of the visit was 15 minutes, of which greater than 50% ofthe time was spent counseling and coordinating care.Arash Whitfield, DO Normal [facility] Progress Noteon 03-14-2018 Respiratory Physician Authentication Interface Message Text Comanagement VisitSubjective: Christina Cooper is being seen today for her comanagement visit due tohyperthyroidism due to toxic goiter. She is at 35w1d gestation. Patient reportsoccasional cramping and pressure upon urination. She denies contractions,vaginal bleeding or leaking fluid. Movement: normal.She is unaccompanied.Review of SystemsReview of SystemsConstitutional: Negative for fever, chills and diaphoresis.Eyes: Negative for visual disturbance.Respiratory: Negative for shortness of breath.Cardiovascular: Negative for chest pain and palpitations.Gastrointes tinal: Negative for nausea, vomiting, abdominal pain, diarrhea andconstipation.Genitour inary: Positive for dysuria. Negative for vaginal bleeding and vaginaldischarge.Skin: Negative for dryness.Neurological: Negative for dizziness, weakness, light-headedness, numbness andheadaches.Psychiatric /Behavioral: Negative for dysphoric mood.All other systems reviewed and are negative.Objective: BP 106/68 Pulse 68 Ht 170.2 cm Wt 76.7 kg (169 lb) LMP 07/11/2017Physical ExamFHT: PositivePresentation: CephalicUltrasound:EFW 2636 gms (48%), JANET 18.2 cm, BPP 8/8.Labs (03/03): TSH <0.01, free T4 1.51Assessment/Plan:28 y.o. at 35w1d withActive Non-Hospital Problems Diagnosis Date Noted Dysuria in 03/14/2018 Recommend sending a urine culture Proteinuria affecting 12/13/2017 -24 hour urine protein 344 on 12/13/17-Precautions reviewed with pt. Supervision of other high risk , antepartum 11/15/2017 MD/OB APPOINTMENTSHow often should patient be evaluated? Comanage every 4 weeksWork restrictions: NoneFETAL EVALUATIONAntenatal surveillance: Weekly at 32 weeksUltrasound: Growth every 4 weeksDELIVERY PLANHospital: [facility] HospitalInduction at 39 weeks weeks Hyperthyroidism affecting 10/18/2017 -Currently taking methimazole 7.5 mg PO daily- Thyroid studies on 03/03 were stable. No need to change her Methimazole dose.-Per current guidelines (ACOG, Endocrine Society, and SHELL) goal is to maintainFree T4 at or slightly above the reference range in non individuals-Copy comange notes and thyroid labs to Dr. Jane ([id number]). She will continue to follow q2-3 months.-The patient will need thyroid studies 6-8 weeks post . Hx of thyroid nodule 10/18/2017 Irritable bowel syndrome (IBS) 10/18/2017Follow up for weekly BPPs and in three weeks for co-management.Vida Murphy MD [facility] Progress Noteon 02-07-2018 Respiratory Physician Authentication Interface Message Text Comanagement VisitSubjective: Christina Cooper is being seen today for her comanagement visit due tohyperthyroidism due to toxic goiter. She is at 30w1d gestation. Patient reportsno complaints. Movement: normal.She is unaccompanied.Review of SystemsReview of SystemsAll other systems reviewed and are negative.Objective: BP 96/54 Wt 74.8 kg (165 lb) LMP 07/11/2017Physical ExamFHT: PositivePresentation: CephalicUltrasound:1. Single, living IUP at 30w1d by clinical RADHA.2. There is appropriate interval growth.3. EFW is 1517 gm at the 50th percentile for stated gestational age.4. Amniotic fluid volume appeared normal, 15.9 cm.5. Placenta is anterior without evidence of previa.6. Anatomic survey performed as noted above, but was limited due to lategestational age. However, no gross anomalies were identified.Labs (02/03): TSH <0.01, free T4 1.41CMP wnl, CN 0.5, LFTs normalAssessment: is at 30w1d gestation.1. Hyperthyroidism. TFTs last week appropriate. No changes to methimazoleneeded at this time. Will re-assess in 1 month. Start antepartum testing at 32weeks.Patient desires second opinion on management for thyroiddisease/toxic nodule. [place] [facility] names were given to the patient.2. Proteinuria. CMP stable. Continue to monitor labs and BP.3. See problem list for concerns not addressed in today's visit.Plan:1. RTC in 4 weeks for comanagement.2. Start antepartum testing weekly starting at 32 weeks. Patient wishes toschedule these with MFM.3. Growth ultrasound every 4 weeks.4. Repeat TFTs next month.The total patient time of the visit was 15 minutes, of which greater than 50% ofthe time was spent counseling and coordinating care. Normal [facility] Progress Noteon 01-10-2018 Respiratory Physician Authentication Interface Message Text Routine VisitSubjective: Christina Cooper is being seen today for her comanage obstetrical visit. Sheis at 26w1d gestation. Patient reports no complaints, no bleeding, no cramping,no leaking, occasional contractions. Pt denies headache, vision changes, RUQpain. Movement: normal.She is unaccompanied.Signs and Symptoms of LaborElizabeth presents with no labor symptoms. MovementElizabeth reports normal movement.Vaginal Bleeding During PregnancyElizabeth denies any vaginal bleeding at this time.Vaginal DischargeElizabeth denies any unusual or increase in vaginal discharge.Rupture of Membranes/Leaking Fluid The patient denies any leaking of fluid atthis time.Signs and Symptoms of PreeclampsiaElizabeth is presenting with no preeclampsia symptoms.Pain Scale Christina denies any signs or symptoms of pain.Review of SystemsReview of SystemsAll other systems reviewed and are negative.Objective: BP 122/60 Wt 73.6 kg (162 lb 3.2 oz) LMP 07/11/2017Physical ExamNursing note and vitals reviewed.Constitutional: She is oriented to person, place, and time. She appearswell-developed and well-nourished.Pulmonary /Chest: Effort normal.Abdominal: Soft.Musculoskeletal: Normal range of motion.Neurological: She is alert and oriented to person, place, and time.Skin: Skin is warm and dry.Psychiatric: She has a normal mood and affect. Her behavior is normal.FHT: PositivePresentation: BreechUterine Size: see growth scanPelvic Exam: No pelvic exam this visitUltrasound:1. Single, live, intrauterine at 26 weeks 1 days.2. Adequate interval growth.3. Normal amniotic fluid.4. Normal limited anatomic survey. Assessment/Plan:27 y.o. at 26w1d withActive Non-Hospital Problems Diagnosis Date Noted Proteinuria affecting 12/13/2017 -24 hour urine protein 344 on 12/13/17-Precautions reviewed with pt. Supervision of other high risk , antepartum 11/15/2017 MD/OB APPOINTMENTSHow often should patient be evaluated? Comanage every 4 weeksWork restrictions: NoneFETAL EVALUATIONAntenatal surveillance: Weekly at 32 weeksUltrasound: Growth every 4 weeksDELIVERY PLANHospital: [facility] HospitalInduction at 39 weeks weeks Hyperthyroidism affecting 10/18/2017 -Currently taking methimazole 7.5 mg PO daily after recent visit with Endo- Pt did not have thyroid studies completed prior to visit. Plan for pt to havethyroid studies completed today (01/10) and will call pt for any necessaryadjustments.-Th yroid studies (including TSH, Free T4, and Free T3) every 4 weeks.-Per current guidelines (ACOG, Endocrine Society, and SHELL) goal is to maintainFree T4 at or slightly above the reference range in non individuals-Copy comange notes and thyroid labs to Dr. Jane ([phone]). She will continue to follow q2-3 months. Hx of thyroid nodule 10/18/2017 Irritable bowel syndrome (IBS) 10/18/2017Precautions reviewedFollow up comanage visit and growth scan 4 weeksThe total patient time of the visit was 15 minutes, of which greater than 50% ofthe time was spent counseling and coordinating care. Normal [facility] Progress Noteon 12-13-2017 Respiratory Physician Authentication Interface Message Text DOS: 12/13/2017COMANAGEMENT PROGRESS NOTECHIEF COMPLAINT: Hyperthyroid in pregnancyHISTORY OF PRESENT ILLNESS:Christina is a 27 y.o. female at 22w1d who presents for comanagementvisit. She complains of occasional nausea, diarrhea and lower extremity edema.She denies other symptoms of hyperthyroid or any obstetric complaints today.Normal movement. She is scheduled to see next week.MEDS:Current Outpatient Prescriptions: Methimazole (TAPAZOLE) 5 MG tablet, Take 1 Tab (5 mg) by mouth daily (Patienttaking differently: Take 7.5 mg by mouth daily Pt takes 5 mg one evening andthen next evening takes 7.5 mg. She alternates every day), Prenat w/o S-DX-Fptwbry-FA-DHA (PNV-DHA PO), Take 1 Tab by mouth daily Pyridoxine HCl (VITAMIN B-6 PO), Take 25 mg by mouth 2 times dailyALLERGY:No Known AllergiesREVIEW OF SYSTEMS:Pertinent items are noted in HPI.PHYSICAL EXAM:VITAL SIGNS: BP 114/60 Wt 72.1 kg (159 lb) LMP 07/11/2017IMAGING:Estima stephanie weight and amniotic fluid volume are appropriate for gestationalage.LABS:Offi ce Visit on 12/13/2017Component Date Value Ref Range Status POCT Protein, Urine 12/13/2017 1+ (30mg/dL)* Negative - Trace mg/dl Final POCT Blood, Urine 12/13/2017 Negative Negative Final POCT Ketones, Urine 12/13/2017 Negative Negative mg/dl Final POCT Glucose, Urine 12/13/2017 Negative Negative mg/dl FinalTSH: <0.01Free T4: 1.43Free T3: 6.5IMPRESSION:Christina is a 27 y.o. female at 22w1d withActive Non-Hospital Problems Diagnosis Date Noted Proteinuria affecting 12/13/2017 -Check 24 hour urine protein 12/13/17 Supervision of other high risk , antepartum 11/15/2017 MD/OB APPOINTMENTSHow often should patient be evaluated? Comanage every 4 weeksWork restrictions: NoneFETAL EVALUATIONAntenatal surveillance: Weekly at 32 weeksUltrasound: Growth every 4 weeksDELIVERY PLANHospital: [facility] HospitalInduction at 39 weeks weeks Hyperthyroidism affecting 10/18/2017 -Alternating methimazole 7.5 mg and 5.0 mg at night. Based on 12/13/17 labs,recommend continuing current methimazole regimen.-Thyroid studies (including TSH, Free T4, and Free T3) every 4 weeks.-Per current guidelines (ACOG, Endocrine Society, and SHELL) goal is to maintainFree T4 at or slightly above the reference range in non individuals-Copy comange notes and thyroid labs to Dr. Jane ([phone]). She will continue to follow q2-3 months. Hx of thyroid nodule 10/18/2017 Irritable bowel syndrome (IBS) 10/18/2017Follow up with MFM in 4 weeks.The total patient time of the visit was 15 minutes, of which greater than 50% ofthe time was spent counseling and coordinating care.Arash Whitfield, DO [facility] Progress Noteon 11-15-2017 Respiratory Physician Authentication Interface Message Text DOS: 11/15/2017COMANAGEMENT PROGRESS NOTECHIEF COMPLAINT: Hyperthyroid in pregnancyHISTORY OF PRESENT ILLNESS:Christina is a 27 y.o. female at 18w1d who presents for comanagementvisit. She complains of occasional episodes of diarrhea. Christina denies othersymptoms of hyperthyroid or obstetric complaints today. Her recent thyroidstudies on 11/01/17 were as follows: TSH <0.01, Free T4 1.21, and Free T3 5.4. increased her methimazole to 7.5 mg daily at that time.MEDS:Current Outpatient Prescriptions: Prenat w/o T-PY-Tlnuvez-FA-DHA (PNV-DHA PO), Take 1 Tab by mouth daily Pyridoxine HCl (VITAMIN B-6 PO), Take 25 mg by mouth 2 times daily methimazole (TAPAZOLE) 5 MG tablet, Take 1 Tab (5 mg) by mouth daily (Patienttaking differently: Take 7.5 mg by mouth daily )ALLERGY:No Known AllergiesREVIEW OF SYSTEMS:Pertinent items are noted in HPI.PHYSICAL EXAM:VITAL SIGNS: BP 129/66 Wt 68.9 kg (152 lb) LMP 07/11/2017IMAGING:Estima stephanie weight and amniotic fluid volume are appropriate for gestationalage. No gross anatomic defects were detected on today's scan, althoughresolution of the left outflow tract was suboptimal. Cervical length appearsnormal without evidence of funneling.LABS:Office Visit on 11/15/2017Component Date Value Ref Range Status POCT Protein, Urine 11/15/2017 2+ (100mg/dL)* Negative - Trace mg/dl Final POCT Blood, Urine 11/15/2017 Negative Negative Final POCT Ketones, Urine 11/15/2017 Negative Negative mg/dl Final POCT Glucose, Urine 11/15/2017 Negative Negative mg/dl FinalTSH: <0.01Free T4: 1.04Free T3: 4.6IMPRESSION:Christina is a 27 y.o. female at 18w1d withPatient Active Problem ListDiagnosis Hyperthyroidism affecting Hx of thyroid nodule Irritable bowel syndrome (IBS) Supervision of other high risk , antepartumPLAN:1. Per current guidelines (ACOG, Endocrine Society, and SHELL) goal is to maintainFree T4 at or slightly above the reference range in non individuals.Thyroid labs today suggest Free T4 below this recommendation, although it isjust above the upper limit of normal for the second trimester (0.6-1.0). Willrepeat thyroid studies in 2 weeks and plan to decrease methimazole if Free P6dtaouwk below goal.2. Follow up anatomic survey in 2 weeks.3. Continue routine follow up with .4. Serial growth ultrasounds every 4 weeks.5. Weekly testing beginning at 32 weeks.6. Comanagement visit with MFM in 4 weeks.The total patient time of the visit was 25 minutes, of which greater than 50% ofthe time was spent counseling and coordinating care.Arash Whitfield, DO Normal [facility] Progress Noteon 10-18-2017 Respiratory Physician Authentication Interface Message Text DOS: 10/18/2017[facility] OHIOMATERNAL- MEDICINE CONSULTReferring/Request ing Provider: Diana Marinelli MDEndocrinologist: Irlanda Jane [facility] COMPLAINT: Hyperthyroidism in pregnancyHISTORY OF PRESENT ILLNESS:Christina is a 27 y.o. female at 14w1d referred for a Maternal-FetalMedicine consultation regarding her history of hyperthyroidism secondary tothyroid nodules. She was diagnosed in July 2017 after experiencing symptomsof weight loss, palpitations, and diarrhea. Christina denies any family historyof thyroid disease. Her TSH in August was <0.01. Christina's labs, includingantibody studies, from her attending psychiatrist Dr. Jane were unavailable atthe time of our consultation. However, she states that her thyroid antibodystudies were normal. Christina is currently taking 75 mg PTU daily. She deniesany current symptoms of hyperthyroidism or obstetric complaints today.OB HISTORY:OB HistoryGravida Para Term AB Living3 1 1 1 1SAB TAB Ectopic Multiple Live Births1 1# Outcome Date GA Lbr Neville/2nd Weight Sex Delivery Anes PTL Lv3 Current2 SAB 05/2017 5w0d1 Term 06/26/14 39w0d 2.948 kg F Vag-Spont EPI N POOJA Comments: SROM; Pit Augmentation; GBS +PAST MEDICAL HISTORY:Past Medical History:Diagnosis Date Gastrointestinal complaints, nonspecific IBS Hyperthyroidism IBS (irritable bowel syndrome) Seasonal allergiesPAST SURGICAL HISTORY:Past Surgical History:Procedure Laterality Date COLONOSCOPY 2010PERTINENT FAMILY HISTORY:Family HistoryProblem Relation Age of Onset Diabetes Mellitus I SisterMEDS:Current Outpatient PrescriptionsMedication Sig propylthiouracil (PTU) 50 MG tablet Take 50 mg by mouth 2 times daily Pt takes1/2 of 50 mg tablet for a dose of 25 mg in the am and one tablet (50 mg) in theevevning Prenat w/o Z-EE-Bmzfslc-FA-DHA (PNV-DHA PO) Take 1 Tab by mouth daily Pyridoxine HCl (VITAMIN B-6 PO) Take 25 mg by mouth 2 times dailyALLERGY:No Known AllergiesREVIEW OF SYSTEMS:As mentioned above and in Subjective, all other Review of Systems reviewed andnegative.PHYSICAL EXAM:VITAL SIGNS: BP 128/58 Ht 170.2 cm Wt 64.3 kg (141 lb 12.8 oz) 07/11/2017 BMI 22.21 kg/m IMAGING:NoneLABS (10/18/17)TSH <0.01Free T4 1.16Free T3 6.4IMPRESSION:Christina is a 27 y.o. female at 14w1d withPatient Active Problem ListDiagnosis Hyperthyroidism affecting Hx of thyroid nodule Irritable bowel syndrome (IBS)We discussed the following:Hyperthyroid in : We reviewed the common symptoms of hyperthyroidincluding nausea and vomiting, anxiety, heat intolerance, tachycardia, andweight loss. Approximately 90-95% of women with hyperthyroidism in pregnancywill have Graves disease. Christina was informed of the potential risks ofnon-treatment, including delivery, mortality, maternal heartfailure, preeclampsia and thyroid storm. She is aware that her thyroid status atthe time of delivery correlates most closely with outcome. In addition,we discussed the risks of / hyperthyroidism, most often due to thetransplacental passage of thyroid stimulating antibodies. Approximately 1-5% ofinfants born to women with hyperthyroidism will be significantly affected.Since 2012, the Endocrine Society has recommended methimazole to treathyperthyroid in the second and third trimester due to the risks of liver failurewith PTU. We discussed the potential side effects of PTU including rash,pruritis, hepatitis, lupus-like syndrome and agranulocytosis. Methimazole hasbeen associated with choanal atresia and aplasia cutis, however these risks arerare and unlikely to occur after completion of first trimester organogenesis.RECOMMENDA TIONS:1. Thyroid studies including TSH, Free T4 and Free T3 were drawn today. I wouldrecommend thyroid function testing every 2 weeks until her T4 and T3 levels arewithin a high-normal range. Thereafter, thyroid studies should be performed atleast every four weeks.2. I reviewed today's thyroid labs with Dr. Jane as well as therecommendation for methimazole. At this time, we will start methimazole 5 mgdaily. Christina was notified of the recommendation and a prescription was sentto her pharmacy.3. Anatomic survey at 18 weeks.4. Serial growth ultrasounds every 4 weeks beginning at 24 weeks.5. Weekly testing is recommended at 32 weeks or sooner if clinicallyindicated.6. Follow up with Dr. Jane as scheduled in 2 weeks.7. Comanagement visit with MFM in 4 weeks.The total patient time of the visit was 30 minutes, of which greater than 50% ofthe time was spent counseling and coordinating care.Arash Whitfield, DO Normal [facility] .Auto Diffon 09-17-2017 Basophils Auto #/vol (Bld) 0.00 10 3/mcL Normal 0.00-0.19 [facility] ([place]) Comment on above: Performed By: #### C BC, ADIFF, ANEU, TSH, FT4, FT3, GFR, CMP, TSIG ####[address] [place], [place] [address]#### ESR, MCRSO ####[address] [address] Basophils/100 WBC Auto (Bld) 0.3 % Normal 0.0-2.5 [facility] ([place]) Comment on above: Performed By: #### C BC, ADIFF, ANEU, TSH, FT4, FT3, GFR, CMP, TSIG ####[address] [address]#### ESR, MCRSO ####[address] [address] Eosinophils 0.00 10 3/mcL Normal 0.00-0.40 [facility] ([place]) Comment on above: Performed By: #### C BC, ADIFF, ANEU, TSH, FT4, FT3, GFR, CMP, TSIG ####[place] [address]#### ESR, MCRSO ####[address] [address] Eosinophils/100 leukocytes 0.6 % Normal 0.0-7.0 [facility] ([place]) Comment on above: Performed By: #### C BC, ADIFF, ANEU, TSH, FT4, FT3, GFR, CMP, TSIG ####[place] [address]#### ESR, MCRSO ####[address] [address] Lymphocytes 2.00 10 3/mcL Normal 0.77-3.85 [facility] ([place]) Comment on above: Performed By: #### C BC, ADIFF, ANEU, TSH, FT4, FT3, GFR, CMP, TSIG ####[place] [address]#### ESR, MCRSO ####[address] [address] Lymphocytes/100 leukocytes 28.2 % Normal 10.0-50.0 [facility] ([place]) Comment on above: Performed By: #### C BC, ADIFF, ANEU, TSH, FT4, FT3, GFR, CMP, TSIG ####[place] [address]#### ESR, MCRSO ####[address] [address] Monocytes 0.60 10 3/mcL Normal 0.15-1.00 [facility] ([place]) Comment on above: Performed By: #### C BC, ADIFF, ANEU, TSH, FT4, FT3, GFR, CMP, TSIG ####[place] [address]#### ESR, MCRSO ####[address] [address] Monocytes/100 leukocytes 9.3 % Normal 1.7-13.0 [facility] ([place]) Comment on above: Performed By: #### C BC, ADIFF, ANEU, TSH, FT4, FT3, GFR, CMP, TSIG ####[address] [place], [place] [address]#### ESR, MCRSO ####[address] [address] Neutrophils/100 WBC Auto (Bld) 61.6 % Normal 37.0-80.0 [facility] ([place]) Comment on above: Performed By: #### C BC, ADIFF, ANEU, TSH, FT4, FT3, GFR, CMP, TSIG ####[place] [id number] [place] [address]#### ESR, MCRSO ####[address] [address] .GFRon 09-17-2017 eGFR (non-black) mL/min/{1.73_m2} Normal [facility] ([place]) Comment on above: Result Comment: GFR Population mean for , Non- Americans Ages 20-29 = 116 mL/min/1.73 sq.m. Ages 30-39 = 107 mL/min/1.73 sq.m. Ages 40-49 = 99 mL/min/1.73 sq.m. Ages 50-59 = 93 mL/min/1.73 sq.m. Ages 60-69 = 85 mL/min/1.73 sq.m. Ages 70+ = 75 mL/min/1.73 sq.m.Chronic Kidney Disease: Less than 60 mL/min/1.73 square metersEnd Stage Renal Disease: Less than 15 mL/min/1.73 square meters Performed By: #### C BC, ADIFF, ANEU, TSH, FT4, FT3, GFR, CMP, TSIG ####[facility] [place], [place] [address]#### ESR, MCRSO ####[address] [address] eGFR (non-black) 159 ml/min/1.73sqm Normal [facility] ([place]) Comment on above: Result Comment: GFR Population mean for , Non- Americans Ages 20-29 = 116 mL/min/1.73 sq.m. Ages 30-39 = 107 mL/min/1.73 sq.m. Ages 40-49 = 99 mL/min/1.73 sq.m. Ages 50-59 = 93 mL/min/1.73 sq.m. Ages 60-69 = 85 mL/min/1.73 sq.m. Ages 70+ = 75 mL/min/1.73 sq.m.Chronic Kidney Disease: Less than 60 mL/min/1.73 square metersEnd Stage Renal Disease: Less than 15 mL/min/1.73 square meters Performed By: #### C BC, ADIFF, ANEU, TSH, FT4, FT3, GFR, CMP, TSIG ####[place] [address]#### ESR, MCRSO ####[place] [address] .NEUABSon 09-17-2017 Neutrophils 4.30 10 3/mcL Normal 2.85-6.16 [facility] ([place]) Comment on above: Performed By: #### C BC, ADIFF, ANEU, TSH, FT4, FT3, GFR, CMP, TSIG ####[place] [address]#### ESR, MCRSO ####[place] [address] CBCon 09-17-2017 Erythrocyte distribution width Auto Ratio (RBC) 12.8 % Normal 11.5-14.5 [facility] ([place]) Comment on above: Performed By: #### C BC, ADIFF, ANEU, TSH, FT4, FT3, GFR, CMP, TSIG ####[place] [address]#### ESR, MCRSO ####[place] [address] Erythrocytes (RBC) 4.86 10 6/mcL Normal 4.20-5.40 [facility] ([place]) Comment on above: Performed By: #### C BC, ADIFF, ANEU, TSH, FT4, FT3, GFR, CMP, TSIG ####[place] [address]#### ESR, MCRSO ####[place] [address] Hematocrit (HCT) 39.6 % Normal 37.0-47.0 [facility] ([place]) Comment on above: Performed By: #### C BC, ADIFF, ANEU, TSH, FT4, FT3, GFR, CMP, TSIG ####[place] [address]#### ESR, MCRSO ####[place] [address] Hemoglobin mass conc (Bld) 12.9 G/dL Normal 12.0-16.0 [facility] ([place]) Comment on above: Performed By: #### C BC, ADIFF, ANEU, TSH, FT4, FT3, GFR, CMP, TSIG ####[place] [address]#### ESR, MCRSO ####[place] [address] MCH 26.5 pg Low 27.0-31.2 [facility] ([place]) Comment on above: Performed By: #### C BC, ADIFF, ANEU, TSH, FT4, FT3, GFR, CMP, TSIG ####[place] [address]#### ESR, MCRSO ####[place] [address] MCHC mass conc (RBC) 32.6 G/dL Low 33.0-37.0 [facility] ([place]) Comment on above: Performed By: #### C BC, ADIFF, ANEU, TSH, FT4, FT3, GFR, CMP, TSIG ####[place] [address]#### ESR, MCRSO ####[place] [address] MCV 81.4 fL Normal 80.0-94.0 [facility] ([place]) Comment on above: Performed By: #### C BC, ADIFF, ANEU, TSH, FT4, FT3, GFR, CMP, TSIG ####[place] [address]#### ESR, MCRSO ####[place] [address] Platelet mean volume (PMV) 8.3 fL Normal 7.4-10.4 [facility] ([place]) Comment on above: Performed By: #### C BC, ADIFF, ANEU, TSH, FT4, FT3, GFR, CMP, TSIG ####[place] [address]#### ESR, MCRSO ####[place] [address] Platelets 225 10 3/mcL Normal 130-400 [facility] ([place]) Comment on above: Performed By: #### C BC, ADIFF, ANEU, TSH, FT4, FT3, GFR, CMP, TSIG ####[place] [address]#### ESR, MCRSO ####[place] [address] WBC (Leukocytes) 7.00 10 3/mcL Normal 4.60-10.80 [facility] ([place] Comment on above: Performed By: #### C BC, ADIFF, ANEU, TSH, FT4, FT3, GFR, CMP, TSIG ####[place] [address]#### ESR, MCRSO ####[place] [address] CMPon 09-17-2017 Alanine aminotransferase (ALT) 19 U/L Normal 10-35 [facility] ([place]) Comment on above: Performed By: #### C BC, ADIFF, ANEU, TSH, FT4, FT3, GFR, CMP, TSIG ####[place] [address]#### ESR, MCRSO ####[place] [address] Albumin 3.9 G/dL Normal 3.5-5.0 [facility] ([place]) Comment on above: Performed By: #### C BC, ADIFF, ANEU, TSH, FT4, FT3, GFR, CMP, TSIG ####[place] [address]#### ESR, MCRSO ####[place] [address] Albumin/Globulin Ratio 1.6 {ratio} Normal 1.1-2.5 [facility] ([place]) Comment on above: Performed By: #### C BC, ADIFF, ANEU, TSH, FT4, FT3, GFR, CMP, TSIG ####[place] [address]#### ESR, MCRSO ####[place] [address] Alk Phos 77 IU/L Normal 40-135 [facility] ([place]) Comment on above: Performed By: #### C BC, ADIFF, ANEU, TSH, FT4, FT3, GFR, CMP, TSIG ####[place] [address]#### ESR, MCRSO ####[place] [address] Aspartate aminotransferase (AST) 13 U/L Normal 10-40 [facility] ([place]) Comment on above: Performed By: #### C BC, ADIFF, ANEU, TSH, FT4, FT3, GFR, CMP, TSIG ####[place] [address]#### ESR, MCRSO ####[place] [address] Bili Total 0.2 mg/dL Normal 0.2-1.0 [facility] ([place]) Comment on above: Performed By: #### C BC, ADIFF, ANEU, TSH, FT4, FT3, GFR, CMP, TSIG ####[address] [address]#### ESR, MCRSO ####[address] [address] BUN/Creatinine Ratio 21 ratio Normal 7-27 [facility] ([place]) Comment on above: Performed By: #### C BC, ADIFF, ANEU, TSH, FT4, FT3, GFR, CMP, TSIG ####[place] [address]#### ESR, MCRSO ####[place] [address] Calcium 9.3 mg/dL Normal 8.4-10.2 [facility] ([place]) Comment on above: Performed By: #### C BC, ADIFF, ANEU, TSH, FT4, FT3, GFR, CMP, TSIG ####[place] [address]#### ESR, MCRSO ####[place] [address] Chloride 100 mmol/L Normal 98-107 [facility] ([place]) Comment on above: Performed By: #### C BC, ADIFF, ANEU, TSH, FT4, FT3, GFR, CMP, TSIG ####[place] [address]#### ESR, MCRSO ####[place] [address] CO2 25 mmol/L Normal 22-29 [facility] ([place]) Comment on above: Performed By: #### C BC, ADIFF, ANEU, TSH, FT4, FT3, GFR, CMP, TSIG ####[place] [address]#### ESR, MCRSO ####[place] [address] Creatinine 0.5 mg/dL Low 0.6-1.2 [facility] ([place]) Comment on above: Performed By: #### C BC, ADIFF, ANEU, TSH, FT4, FT3, GFR, CMP, TSIG ####[place] [address]#### ESR, MCRSO ####[place] [address] Electrolyte Balance 8.0 mEq/L Normal [facility] [place] Comment on above: Performed By: #### C BC, ADIFF, ANEU, TSH, FT4, FT3, GFR, CMP, TSIG ####[place] [address]#### ESR, MCRSO ####[place] [address] Globulin 2.5 G/dL Normal [facility] ([place]) Comment on above: Performed By: #### C BC, ADIFF, ANEU, TSH, FT4, FT3, GFR, CMP, TSIG ####[place] [address]#### ESR, MCRSO ####[place] [address] Glucose mass conc 92 mg/dL Normal 70-105 [facility] ([place]) Comment on above: Performed By: #### C BC, ADIFF, ANEU, TSH, FT4, FT3, GFR, CMP, TSIG ####[place] [address]#### ESR, MCRSO ####[place] [address] Potassium molar conc 4.3 mmol/L Normal 3.5-5.1 [facility] ([place]) Comment on above: Performed By: #### C BC, ADIFF, ANEU, TSH, FT4, FT3, GFR, CMP, TSIG ####[place] [address]#### ESR, MCRSO ####[place] [address] Protein 6.4 G/dL Normal 6.0-8.3 [facility] ([place]) Comment on above: Performed By: #### C BC, ADIFF, ANEU, TSH, FT4, FT3, GFR, CMP, TSIG ####[place] [address]#### ESR, MCRSO ####[place] [address] Sodium 133 mmol/L Low 136-146 [facility] ([place]) Comment on above: Performed By: #### C BC, ADIFF, ANEU, TSH, FT4, FT3, GFR, CMP, TSIG ####[place] [address]#### ESR, MCRSO ####[place] [address] Urea nitrogen 10.3 mg/dL Normal 7.0-18.0 [facility] ([place]) Comment on above: Performed By: #### C BC, ADIFF, ANEU, TSH, FT4, FT3, GFR, CMP, TSIG ####[place] [address]#### ESR, MCRSO ####[place] [address] FT3on 09-17-2017 Triiodothyronine (T3) free 6.7 pg/mL High 2.3-4.0 [facility] ([place]) Comment on above: Result Comment: Abov e normal(expected)range Performed By: #### C BC, ADIFF, ANEU, TSH, FT4, FT3, GFR, CMP, TSIG ####[place] [address]#### ESR, MCRSO ####[place] [address] FT4on 09-17-2017 Thyroxine (T4) free 1.3 ng/mL Normal 0.6-1.7 [facility] [place] Comment on above: Performed By: #### C BC, ADIFF, ANEU, TSH, FT4, FT3, GFR, CMP, TSIG ####[place] [address]#### ESR, MCRSO ####[place] [address] TSHon 09-17-2017 Thyroid stimulating hormone (TSH) 0.01 mcIU/mL Low 0.27-4.20 [facility] ([place]) Comment on above: Result Comment: Ender ntial microparticle carryover Performed By: #### C BC, ADIFF, ANEU, TSH, FT4, FT3, GFR, CMP, TSIG ####[place] [id number] [place] [id number]#### ESR, MCRSO ####[place] [address] Torin 08-27-2017 Thyroid Stim. Imm-Glob. <13 Normal <150 [facility] ([place]) Comment on above: Result Comment: Resu lt rechecked.Performed By:[facility] [place], [place] [address]Ixk Director: BARBARA VelasquezIA#: [id number]#: Performed By: #### C BC, ADIFF, ANEU, TSH, FT4, FT3, GFR, CMP, TSIG ####[place] [address] [place] [address]#### ESR, MCRSO ####[place] [address] ESPY7ik 08-24-2017 Microsomal Ab 20 IU/mL Normal 0-35 [facility] ([place]) Comment on above: Result Comment: This result represents Anti-TPO antibodies which aresynonymous with microsomal antibodies. Performed By: #### C BC, ADIFF, ANEU, TSH, FT4, FT3, GFR, CMP, TSIG ####[place] [id number] [place] [address]#### ESR, MCRSO ####[place] [address] ESRon 08-21-2017 Erythrocytes (RBC) 11 mm/hr Normal 0-20 [facility] ([place]) Comment on above: Performed By: #### C BC, ADIFF, ANEU, TSH, FT4, FT3, GFR, CMP, TSIG ####[place] [address]#### ESR, MCRSO ####[address] [address] .Auto Diffon 08-20-2017 Basophils Auto #/vol (Bld) 0.00 10 3/mcL Normal 0.00-0.19 [facility] ([place]) Comment on above: Performed By: #### C BC, ADIFF, ANEU, TSH, FT4, FT3, GFR, CMP, TSIG ####[place] [address]#### ESR, MCRSO ####[address] [address] Basophils/100 WBC Auto (Bld) 0.3 % Normal 0.0-2.5 [facility] ([place]) Comment on above: Performed By: #### C BC, ADIFF, ANEU, TSH, FT4, FT3, GFR, CMP, TSIG ####[place] [address]#### ESR, MCRSO ####[place] [address] Eosinophils 0.00 10 3/mcL Normal 0.00-0.40 [facility] ([place]) Comment on above: Performed By: #### C BC, ADIFF, ANEU, TSH, FT4, FT3, GFR, CMP, TSIG ####[place] [address]#### ESR, MCRSO ####[place] [address] Eosinophils/100 leukocytes 0.4 % Normal 0.0-7.0 [facility] ([place]) Comment on above: Performed By: #### C BC, ADIFF, ANEU, TSH, FT4, FT3, GFR, CMP, TSIG ####[place] [address]#### ESR, MCRSO ####[place] [address] Lymphocytes 1.90 10 3/mcL Normal 0.77-3.85 [facility] ([place]) Comment on above: Performed By: #### C BC, ADIFF, ANEU, TSH, FT4, FT3, GFR, CMP, TSIG ####[place] [address]#### ESR, MCRSO ####[address] [address] Lymphocytes/100 leukocytes 33.6 % Normal 10.0-50.0 [facility] ([place]) Comment on above: Performed By: #### C BC, ADIFF, ANEU, TSH, FT4, FT3, GFR, CMP, TSIG ####[place] [address]#### ESR, MCRSO ####[address] [address] Monocytes 0.60 10 3/mcL Normal 0.15-1.00 [facility] ([place]) Comment on above: Performed By: #### C BC, ADIFF, ANEU, TSH, FT4, FT3, GFR, CMP, TSIG ####[place] [address]#### ESR, MCRSO ####[address] [address] Monocytes/100 leukocytes 11.1 % Normal 1.7-13.0 [facility] ([place]) Comment on above: Performed By: #### C BC, ADIFF, ANEU, TSH, FT4, FT3, GFR, CMP, TSIG ####[place] [address]#### ESR, MCRSO ####[address] [address] Neutrophils/100 WBC Auto (Bld) 54.6 % Normal 37.0-80.0 [facility] ([place]) Comment on above: Performed By: #### C BC, ADIFF, ANEU, TSH, FT4, FT3, GFR, CMP, TSIG ####[place] [address] [place] [address]#### ESR, MCRSO ####[address] [address] .GFRon 08-20-2017 eGFR (non-black) mL/min/{1.73_m2} Normal [facility] ([place]) Comment on above: Result Comment: GFR Population mean for , Non- Americans Ages 20-29 = 116 mL/min/1.73 sq.m. Ages 30-39 = 107 mL/min/1.73 sq.m. Ages 40-49 = 99 mL/min/1.73 sq.m. Ages 50-59 = 93 mL/min/1.73 sq.m. Ages 60-69 = 85 mL/min/1.73 sq.m. Ages 70+ = 75 mL/min/1.73 sq.m.Chronic Kidney Disease: Less than 60 mL/min/1.73 square metersEnd Stage Renal Disease: Less than 15 mL/min/1.73 square meters Performed By: #### C BC, ADIFF, ANEU, TSH, FT4, FT3, GFR, CMP, TSIG ####[place] [place], [place] [address]#### ESR, MCRSO ####[place] [address] eGFR (non-black) 150 ml/min/1.73sqm Normal [facility] ([place]) Comment on above: Result Comment: GFR Population mean for , Non- Americans Ages 20-29 = 116 mL/min/1.73 sq.m. Ages 30-39 = 107 mL/min/1.73 sq.m. Ages 40-49 = 99 mL/min/1.73 sq.m. Ages 50-59 = 93 mL/min/1.73 sq.m. Ages 60-69 = 85 mL/min/1.73 sq.m. Ages 70+ = 75 mL/min/1.73 sq.m.Chronic Kidney Disease: Less than 60 mL/min/1.73 square metersEnd Stage Renal Disease: Less than 15 mL/min/1.73 square meters Performed By: #### C BC, ADIFF, ANEU, TSH, FT4, FT3, GFR, CMP, TSIG ####[address] [address] [place], [place] [address]#### ESR, MCRSO ####[place] [address] .NEUABSon 08-20-2017 Neutrophils 3.10 10 3/mcL Normal 2.85-6.16 [facility] ([place]) Comment on above: Performed By: #### C BC, ADIFF, ANEU, TSH, FT4, FT3, GFR, CMP, TSIG ####[place] [address]#### ESR, MCRSO ####[place] [address] CBCon 08-20-2017 Erythrocyte distribution width Auto Ratio (RBC) 12.4 % Normal 11.5-14.5 [facility] ([place]) Comment on above: Performed By: #### C BC, ADIFF, ANEU, TSH, FT4, FT3, GFR, CMP, TSIG ####[place] [address]#### ESR, MCRSO ####[place] [address] Erythrocytes (RBC) 4.82 10 6/mcL Normal 4.20-5.40 [facility] ([place]) Comment on above: Performed By: #### C BC, ADIFF, ANEU, TSH, FT4, FT3, GFR, CMP, TSIG ####[place] [address]#### ESR, MCRSO ####[place] [address] Hematocrit (HCT) 38.9 % Normal 37.0-47.0 [facility] ([place]) Comment on above: Performed By: #### C BC, ADIFF, ANEU, TSH, FT4, FT3, GFR, CMP, TSIG ####[place] [address]#### ESR, MCRSO ####[place] [address] Hemoglobin mass conc (Bld) 13.0 G/dL Normal 12.0-16.0 [facility] ([place]) Comment on above: Performed By: #### C BC, ADIFF, ANEU, TSH, FT4, FT3, GFR, CMP, TSIG ####[place] [address]#### ESR, MCRSO ####[place] [address] MCH 27.0 pg Normal 27.0-31.2 [facility] ([place]) Comment on above: Performed By: #### C BC, ADIFF, ANEU, TSH, FT4, FT3, GFR, CMP, TSIG ####[place] [address]#### ESR, MCRSO ####[place] [address] MCHC mass conc (RBC) 33.5 G/dL Normal 33.0-37.0 [facility] ([place]) Comment on above: Performed By: #### C BC, ADIFF, ANEU, TSH, FT4, FT3, GFR, CMP, TSIG ####[place] [address]#### ESR, MCRSO ####[place] [address] MCV 80.6 fL Normal 80.0-94.0 [facility] ([place]) Comment on above: Performed By: #### C BC, ADIFF, ANEU, TSH, FT4, FT3, GFR, CMP, TSIG ####[place] [address]#### ESR, MCRSO ####[place] [address] Platelet mean volume (PMV) 8.2 fL Normal 7.4-10.4 [facility] ([place]) Comment on above: Performed By: #### C BC, ADIFF, ANEU, TSH, FT4, FT3, GFR, CMP, TSIG ####[place] [address]#### ESR, MCRSO ####[address] [address] Platelets 227 10 3/mcL Normal 130-400 [facility] ([place]) Comment on above: Performed By: #### C BC, ADIFF, ANEU, TSH, FT4, FT3, GFR, CMP, TSIG ####[place] [address] [place] [address]#### ESR, MCRSO ####[place] [address] WBC (Leukocytes) 5.70 10 3/mcL Normal 4.60-10.80 [facility] [place] Comment on above: Performed By: #### C BC, ADIFF, ANEU, TSH, FT4, FT3, GFR, CMP, TSIG ####[place] [address]#### ESR, MCRSO ####[place] [address] CMPon 08-20-2017 Alanine aminotransferase (ALT) 25 U/L Normal 10-35 [facility] ([place]) Comment on above: Performed By: #### C BC, ADIFF, ANEU, TSH, FT4, FT3, GFR, CMP, TSIG ####[place] [address]#### ESR, MCRSO ####[place] [address] Albumin/Globulin Ratio 1.6 {ratio} Normal 1.1-2.5 [facility] ([place]) Comment on above: Performed By: #### C BC, ADIFF, ANEU, TSH, FT4, FT3, GFR, CMP, TSIG ####[place] [address]#### ESR, MCRSO ####[place] [address] Alk Phos 84 IU/L Normal 40-135 [facility] ([place]) Comment on above: Performed By: #### C BC, ADIFF, ANEU, TSH, FT4, FT3, GFR, CMP, TSIG ####[place] [address]#### ESR, MCRSO ####[address] [address] Aspartate aminotransferase (AST) 17 U/L Normal 10-40 [facility] ([place]) Comment on above: Performed By: #### C BC, ADIFF, ANEU, TSH, FT4, FT3, GFR, CMP, TSIG ####[place] [address]#### ESR, MCRSO ####[place] [address] Globulin 2.5 G/dL Normal [facility] ([place]) Comment on above: Performed By: #### C BC, ADIFF, ANEU, TSH, FT4, FT3, GFR, CMP, TSIG ####[place] [address]#### ESR, MCRSO ####[place] [address] Glucose mass conc 118 mg/dL High 70-105 [facility] ([place]) Comment on above: Performed By: #### C BC, ADIFF, ANEU, TSH, FT4, FT3, GFR, CMP, TSIG ####[place] [address]#### ESR, MCRSO ####[place] [address] Protein 6.5 G/dL Normal 6.0-8.3 [facility] ([place]) Comment on above: Performed By: #### C BC, ADIFF, ANEU, TSH, FT4, FT3, GFR, CMP, TSIG ####[place] [address]#### ESR, MCRSO ####[place] [address] Bili Total 0.2 mg/dL Normal 0.2-1.0 [facility] ([place]) Comment on above: Performed By: #### C BC, ADIFF, ANEU, TSH, FT4, FT3, GFR, CMP, TSIG ####[address] [address]#### ESR, MCRSO ####[address] [address] BUN/Creatinine Ratio 17 ratio Normal 7-27 [facility] ([place]) Comment on above: Performed By: #### C BC, ADIFF, ANEU, TSH, FT4, FT3, GFR, CMP, TSIG ####[place] [address]#### ESR, MCRSO ####[address] [address] Calcium 9.8 mg/dL Normal 8.4-10.2 [facility] ([place]) Comment on above: Performed By: #### C BC, ADIFF, ANEU, TSH, FT4, FT3, GFR, CMP, TSIG ####[place] [address]#### ESR, MCRSO ####[place] [address] CO2 24 mmol/L Normal 22-29 [facility] ([place]) Comment on above: Performed By: #### C BC, ADIFF, ANEU, TSH, FT4, FT3, GFR, CMP, TSIG ####[place] [address]#### ESR, MCRSO ####[address] [address] Creatinine 0.6 mg/dL Normal 0.6-1.2 [facility] ([place]) Comment on above: Performed By: #### C BC, ADIFF, ANEU, TSH, FT4, FT3, GFR, CMP, TSIG ####[place] [address]#### ESR, MCRSO ####[place] [address] Electrolyte Balance 9.0 mEq/L Normal [facility] [place] Comment on above: Performed By: #### C BC, ADIFF, ANEU, TSH, FT4, FT3, GFR, CMP, TSIG ####[place] [address]#### ESR, MCRSO ####[address] [address] Albumin 4.0 G/dL Normal 3.5-5.0 [facility] ([place]) Comment on above: Performed By: #### C BC, ADIFF, ANEU, TSH, FT4, FT3, GFR, CMP, TSIG ####[place] [address]#### ESR, MCRSO ####[place] [address] Chloride 105 mmol/L Normal 98-107 [facility] ([place]) Comment on above: Performed By: #### C BC, ADIFF, ANEU, TSH, FT4, FT3, GFR, CMP, TSIG ####[place] [address]#### ESR, MCRSO ####[place] [address] Potassium molar conc 4.6 mmol/L Normal 3.5-5.1 [facility] ([place]) Comment on above: Performed By: #### C BC, ADIFF, ANEU, TSH, FT4, FT3, GFR, CMP, TSIG ####[place] [address]#### ESR, MCRSO ####[place] [address] Sodium 138 mmol/L Normal 136-146 [facility] ([place]) Comment on above: Performed By: #### C BC, ADIFF, ANEU, TSH, FT4, FT3, GFR, CMP, TSIG ####[place] [address]#### ESR, MCRSO ####[place] [address] Urea nitrogen 10.3 mg/dL Normal 7.0-18.0 [facility] ([place]) Comment on above: Performed By: #### C BC, ADIFF, ANEU, TSH, FT4, FT3, GFR, CMP, TSIG ####[facility] [place] [address]#### ESR, MCRSO ####[place] [id number] FT3on 08-20-2017 Triiodothyronine (T3) free 9.9 pg/mL High 2.3-4.0 [facility] ([place]) Comment on above: Result Comment: Abov e normal(expected)range Performed By: #### C BC, ADIFF, ANEU, TSH, FT4, FT3, GFR, CMP, TSIG ####[facility] [place] [address]#### ESR, MCRSO ####[place] [address] FT4on 08-20-2017 Thyroxine (T4) free 1.9 ng/mL High 0.6-1.7 [facility] [place] Comment on above: Result Comment: Abov e normal(expected)range Performed By: #### C BC, ADIFF, ANEU, TSH, FT4, FT3, GFR, CMP, TSIG ####[place] [address] [place] [address]#### ESR, MCRSO ####[place] [address] TSHon 08-20-2017 Thyroid stimulating hormone (TSH) m[IU]/L Low 0.27-4.20 [facility] ([place]) Comment on above: Result Comment: Belo w measuring range Performed By: #### C BC, ADIFF, ANEU, TSH, FT4, FT3, GFR, CMP, TSIG ####[facility] [place] [id number]#### ESR, MCRSO ####[place] [id number] US THYROID/PARATHYROID [facility] Vital Signs Date Time Vital Sign Value Performing Clinician Suly harry 09-18-2024 10:05-0500 Body height 167.6 cm Alcides Ramon DO Work Phone: [facility] 09-18-2024 10:05-0500 Body mass index (BMI) [Ratio] 21.95 kg/m2 Alcides Ramon DO Work Phone: [facility] 09-18-2024 10:05-0500 Body weight 61.69 kg Alcides Ramon DO Work Phone: [facility] 09-18-2024 10:05-0500 Diastolic blood pressure 74 mm[Hg] Alcides Ramon DO Work Phone: [facility] 09-18-2024 10:05-0500 Heart rate 94 /min Alcides Ramon DO Work Phone: [facility] 09-18-2024 10:05-0500 SaO2% (BldA) [Mass fraction] 99 % Alcides Ramon DO Work Phone: [facility] 09-18-2024 10:05-0500 Systolic blood pressure 123 mm[Hg] Alcides Ramon DO Work Phone: [facility] 03-13-2024 14:59-0400 Diastolic blood pressure 68 mm[Hg] Telma Phan DO Work Phone: [facility] 03-13-2024 14:59-0400 Heart rate 81 /min Telma Phan DO Work Phone: [facility] 03-13-2024 14:59-0400 SaO2% (BldA) [Mass fraction] 99 % Telma Phan DO Work Phone: [facility] 03-13-2024 14:59-0400 Systolic blood pressure 100 mm[Hg] Telma Phan DO Work Phone: [facility] 02-10-2024 14:12-0400 Body height 167.[address] Mehdi Rivera Work Phone: [facility] 02-10-2024 14:12-0400 Body mass index (BMI) [Ratio] 21.4 kg/m2 Dr. Mehdi Rivera Work Phone: [facility] 02-10-2024 14:12-0400 Body temperature 100 [degF] Dr. Mehdi Rivera Work Phone: [facility] 02-10-2024 14:12-0400 Body weight 60.[address] Mehdi Rivera Work Phone: [facility] 02-10-2024 14:12-0400 Diastolic blood pressure 70 mm[Hg] Dr. Mehdi Rivera Work Phone: [facility] 02-10-2024 14:12-0400 Heart rate 84 /min Dr. Mehdi Rivera Work Phone: [facility] 02-10-2024 14:12-0400 Respiratory rate 14 /min Dr. Mehdi Rivera Work Phone: [facility] 02-10-2024 14:12-0400 SaO2% (BldA) [Mass fraction] 98 % Dr. Mehdi Rivera Work Phone: [facility] 02-10-2024 14:12-0400 Systolic blood pressure 116 mm[Hg] Dr. Mehdi Rivera Work Phone: [facility] 09-20-2023 10:03-0500 Body height 167.6 cm Alcides Ramon DO Work Phone: [facility] 09-20-2023 10:03-0500 Body weight 60.92 kg Alcides Ramon DO Work Phone: [facility] 09-20-2023 10:03-0500 Diastolic blood pressure 59 mm[Hg] Alcides Ramon DO Work Phone: [facility] 09-20-2023 10:03-0500 Heart rate 99 /min Alcides Ramon DO Work Phone: [facility] 09-20-2023 10:03-0500 SaO2% (BldA) [Mass fraction] 100 % Alcides Ramon DO Work Phone: [facility] 09-20-2023 10:03-0500 Systolic blood pressure 96 mm[Hg] Alcides Ramon DO Work Phone: [facility] 09-16-2023 09:05-0500 Diastolic blood pressure 65 mm[Hg] Calin Rossi MD Work Phone: [facility] 09-16-2023 09:05-0500 Heart rate 72 /min Calin Rossi MD Work Phone: [facility] 09-16-2023 09:05-0500 Respiratory rate 25 /min Calin Rossi MD Work Phone: [facility] 09-16-2023 09:05-0500 SaO2% (BldA) [Mass fraction] 96 % Calin Rossi MD Work Phone: [facility] 09-16-2023 09:05-0500 Systolic blood pressure 105 mm[Hg] Calin Rossi MD Work Phone: [facility] 09-16-2023 07:40-0500 Body height 167.6 cm Calin Rossi MD Work Phone: [facility] 09-16-2023 07:40-0500 Body mass index (BMI) [Ratio] 21.31 kg/m2 Calin Rossi MD Work Phone: [facility] 09-16-2023 07:40-0500 Body weight 59.88 kg Calin Rossi MD Work Phone: [facility] 09-29-2022 15:09-0500 Diastolic blood pressure 71 mm[Hg] Dr. Mehdi Rivera Work Phone: [facility] Work Phone: 09-29-2022 15:09-0500 Systolic blood pressure 117 mm[Hg] Dr. Mehdi Rivera Work Phone: [facility] Work Phone: 09-29-2022 12:49-0500 Body height 167.[address] Mehdi Rivera Work Phone: [facility] Work Phone: 09-29-2022 12:49-0500 Body mass index (BMI) [Ratio] 20.6 kg/m2 Dr. Mehdi Rivera Work Phone: [facility] Work Phone: 09-29-2022 12:49-0500 Body temperature 97.5 [degF] Dr. Mehdi Rivera Work Phone: [facility] Work Phone: 09-29-2022 12:49-0500 Body weight 58.[address] Mehdi Rivera Work Phone: [facility] Work Phone: 09-29-2022 12:49-0500 Heart rate 118 /min Dr. Mehdi Rivera Work Phone: [facility] Work Phone: 09-29-2022 12:49-0500 Respiratory rate 16 /min Dr. Mehdi Rivera Work Phone: [facility] Work Phone: 09-29-2022 12:49-0500 SaO2% (BldA) [Mass fraction] 98 % Dr. Mehdi Rivera Work Phone: [facility] Work Phone: 09-24-2022 09:05-0500 Body temperature 97.8 [degF] Dr. Mehdi Rivera Work Phone: [facility] Work Phone: 09-24-2022 09:05-0500 Diastolic blood pressure 58 mm[Hg] Dr. Mehdi Rivera Work Phone: [facility] Work Phone: 09-24-2022 09:05-0500 Heart rate 75 /min Dr. Mehdi Rivera Work Phone: [facility] Work Phone: 09-24-2022 09:05-0500 Respiratory rate 14 /min Dr. Mehdi Rivera Work Phone: [facility] Work Phone: 09-24-2022 09:05-0500 SaO2% (BldA) [Mass fraction] 100 % Dr. Mehdi Rivera Work Phone: [facility] Work Phone: 09-24-2022 09:05-0500 Systolic blood pressure 94 mm[Hg] Dr. Mehdi Rivera Work Phone: [facility] Work Phone: 09-24-2022 07:39-0500 Body height 167.[address] Mehdi Rivera Work Phone: [facility] Work Phone: 09-24-2022 07:39-0500 Body mass index (BMI) [Ratio] 21.3 kg/m2 Dr. Mehdi Rivera Work Phone: [facility] Work Phone: 09-24-2022 07:39-0500 Body weight [address] Mehdi Rivera Work Phone: [facility] Work Phone: 09-14-2022 10:05-0500 Body height 167.6 cm Alcides Ramon DO Work Phone: [facility] 09-14-2022 10:05-0500 Body weight 60.06 kg Alcides Ramon DO Work Phone: [facility] 09-14-2022 10:05-0500 Diastolic blood pressure 73 mm[Hg] Alcides Ramon DO Work Phone: [facility] 09-14-2022 10:05-0500 Heart rate 81 /min Alcides Ramon DO Work Phone: [facility] 09-14-2022 10:05-0500 SaO2% (BldA) [Mass fraction] 95 % Alcides Ramon DO Work Phone: [facility] 09-14-2022 10:05-0500 Systolic blood pressure 116 mm[Hg] Alcides Ramon DO Work Phone: [facility] 08-03-2022 09:41-0400 Body mass index (BMI) [Ratio] 21.9 kg/m2 Dr. Mehdi Rivera Work Phone: [facility] Work Phone: 08-03-2022 09:41-0400 Body temperature 96.8 [degF] Dr. Mehdi Rivera Work Phone: [facility] Work Phone: 08-03-2022 09:41-0400 Body weight 61.[address] Mehdi Rivera Work Phone: [facility] Work Phone: 08-03-2022 09:41-0400 Diastolic blood pressure 74 mm[Hg] Dr. Mehdi Rivera Work Phone: [facility] Work Phone: 08-03-2022 09:41-0400 Heart rate 66 /min Dr. Mehdi Rivera Work Phone: [facility] Work Phone: 08-03-2022 09:41-0400 Respiratory rate 16 /min Dr. Mehdi Rivera Work Phone: [facility] Work Phone: 08-03-2022 09:41-0400 SaO2% (BldA) [Mass fraction] 98 % Dr. Mehdi Rivera Work Phone: [facility] Work Phone: 08-03-2022 09:41-0400 Systolic blood pressure 118 mm[Hg] Dr. Mehdi Rivera Work Phone: [facility] Work Phone: 06-18-2022 09:18-0400 Body mass index (BMI) [Ratio] 21.4 kg/m2 Dr. Mehdi Rivera Work Phone: [facility] Work Phone: 06-18-2022 09:18-0400 Body temperature 97.9 [degF] Dr. Mehdi Rivera Work Phone: [facility] Work Phone: 06-18-2022 09:18-0400 Body weight 60.[address] Mehdi Rivear Work Phone: [facility] Work Phone: 06-18-2022 09:18-0400 Diastolic blood pressure 70 mm[Hg] Dr. Mehdi Rivera Work Phone: [facility] Work Phone: 06-18-2022 09:18-0400 Heart rate 67 /min Dr. Medhi Rivera Work Phone: [facility] Work Phone: 06-18-2022 09:18-0400 Respiratory rate 14 /min Dr. Mehdi Rivera Work Phone: [facility] Work Phone: 06-18-2022 09:18-0400 SaO2% (BldA) [Mass fraction] 98 % Dr. Mehdi Rivera Work Phone: [facility] Work Phone: 06-18-2022 09:18-0400 Systolic blood pressure 118 mm[Hg] Dr. Mehdi Rivera Work Phone: [facility] Work Phone: 04-03-2022 08:27-0400 Body height 167.6 cm Telma Phan DO Work Phone: [facility] 04-03-2022 08:27-0400 Body weight 59.88 kg Telma Phan DO Work Phone: [facility] 04-03-2022 08:27-0400 Diastolic blood pressure 68 mm[Hg] Telma Phan DO Work Phone: [facility] 04-03-2022 08:27-0400 Heart rate 74 /min Telma Phan DO Work Phone: [facility] 04-03-2022 08:27-0400 SaO2% (BldA) [Mass fraction] 100 % Telma Phan DO Work Phone: [facility] 04-03-2022 08:27-0400 Systolic blood pressure 110 mm[Hg] Telma Phan DO Work Phone: [facility] Encounters Encounter Date Encounter Type Care Provider Facility Start: 03-27-2025 ambulatory Mehdi George ty:[facility] Start: 02-26-2025 End: 02-26-2025 ambulatory MERLE DINH Facility:[facility] Start: 01-30-2025 Encounter for genera l adult medical examination without abnormal findings Jhon LEE [facility] Start: 01-25-2025 End: 01-25-2025 ambulatory Jhon LEE Facility:[facility] Start: 01-18-2025 End: 01-18-2025 ambulatory Jhon LEE Facility:[facility] Start: 09-18-2024 End: 09-18-2024 Patient encounter procedure Alcides Fernanda Ramon DO Work Phone: [facility] Comment on above: Postoperative hypoth yroidism (Primary Dx); History of partial thyroidectomy; History of papillary adenocarcinoma of thyroid Start: 09-18-2024 End: 09-18-2024 ambulatory ALCIDES RAMON Facility:[facility] Start: 09-12-2024 End: 09-13-2024 Refill Clain Rossi MD Work Phone: Gastroenterology Comment on above: Refill Request (Pant oprazole 40mg/) Start: 03-30-2024 End: 03-30-2024 ambulatory Mehdi Rivera Facility:[facility] Start: 03-13-2024 End: 03-13-2024 ambulatory TELMA PHAN Facility:[facility] Start: 03-13-2024 End: 03-13-2024 Patient encounter procedure Telma Phan DO Work Phone: Vascular Surgery Comment on above: Symptomatic spider v aricose vein (Primary Dx) Start: 02-10-2024 End: 02-10-[address] Mehdi Rivera Work Phone: [facility] Work Phone: Start: 02-10-2024 End: 02-10-[address] Mehdi Rivera Work Phone: [facility] Work Phone: Start: 01-13-2024 Refill Calin Rossi MD Work Phone: Gastroenterology Comment on above: Refill Request Start: 01-13-2024 Refill Calin Rossi MD Work Phone: Gastroenterology Comment on above: Refill Request Start: 09-20-2023 End: 09-20-2023 Patient encounter procedure Alcides Ramon DO Work Phone: [facility] Endocr[facility]ology Comment on above: Postoperative hypoth yroidism (Primary Dx); History of partial thyroidectomy; Thyroid cancer (HCC) Start: 09-16-2023 End: 09-16-2023 ambulatory CALIN ROSSI Facility:[facility] Start: 09-16-2023 End: 09-16-2023 Subsequent hospital visit by physician Calin Rossi MD Work Phone: Ambulatory Surgery Comment on above: Ryan's esophagus without dysplasia [K22.70] Start: 09-15-2023 ambulatory Calin Rossi MD Work Phone: Ambulatory Surgery Start: 09-14-2023 End: 09-14-2023 ambulatory ALCIDES RAMON Facility:[facility] Start: 08-02-2023 End: 08-02-2023 ambulatory CALIN ROSSI Facility:[facility] Start: 09-29-2022 End: 09-29-2022 Emergency department patient visit Dr. Mehdi Rivera Work Phone: [facility]-Emergency Department Start: 09-24-2022 Non-patient / Non-visit Dr. Issa Rivera Work Phone: [facility] Start: 09-24-2022 End: 09-24-2022 Admission to same day surgery center Dr. Mehdi Rivera Work Phone: [facility]-Endoscopy Start: 09-24-2022 End: 09-24-[address] Mehdi Rivera Work Phone: [facility] Work Phone: Start: 09-14-2022 End: 09-14-2022 Patient encounter procedure Alcides Ramon DO Work Phone: [facility] Comment on above: Postoperative hypoth yroidism (Primary Dx); History of partial thyroidectomy; Thyroid cancer (HCC) Start: 08-03-2022 End: 08-03-[address] Mehdi Rivera Work Phone: [facility] Start: 06-18-2022 End: 06-18-[address] Mehdi Rivera Work Phone: [facility] Start: 04-03-2022 End: 04-03-2022 Patient encounter procedure Telma Phan DO Work Phone: Vascular Surgery Comment on above: Symptomatic varicose veins of both lower extremities (Primary Dx) Start: 02-13-2022 ambulatory Aclides Ramon DO Work Phone: [facility] Endocr[facility]ology Comment on above: Labs Start: 04-04-2018 Ambulatory NO PRIMARY CARE [facility] Start: 03-28-2018 Ambulatory NO PRIMARY CARE [facility] Start: 03-21-2018 Ambulatory NO PRIMARY CARE [facility] Start: 03-14-2018 Ambulatory NO [facility] Start: 02-28-2018 Ambulatory NO [facility] Start: 2018 End: 2018 Ambulatory NO [facility] Start: 02-07-2018 End: 02-07-2018 Ambulatory NO [facility] Start: 01-10-2018 End: 01-10-2018 Ambulatory MERLE FAULKNER [facility] Start: 12-13-2017 End: 12-13-2017 Ambulatory [facility] Start: 11-29-2017 End: 11-29-2017 Ambulatory VIDA GU [facility] Start: 11-15-2017 End: 11-15-2017 Ambulatory [facility] Start: 10-18-2017 End: 10-18-2017 Ambulatory [facility] Start: 09-17-2017 End: 09-18-2017 Ambulatory [facility] Facility[facility] Start: 08-20-2017 End: 08-21-2017 Ambulatory [facility] Facility:[facility] Procedures Date Procedure Procedure Detail Performing Clinician Start: 09-20-2023 End: 09-20-2023 Us soft tissue head & neck real time imge docm Alcides Ramon DO Work Phone: Start: 09-16-2023 Level iv surg pathology gross&microscopic exam Calin Rossi MD Work Phone: Start: 09-16-2023 Esophagogastroduodenoscopy transoral diagnostic Calin Rossi MD Work Phone: Start: 09-24-[address] Mehdi Rivera Work Phone: Plan of Treatment Date Care Activity Detail Author Start: 09-24-2025 End: 09-24-2025 Patient encounter procedure 09/24/2025 10:00 AM EST Office Visit [facility] Endocr[facility]ology [address] [place], [place] [id number] Alcides Ramon, [address] [place], [place] [id number] thyroid [facility] Comment on above: thyroid Start: 09-08-2025 End: 12-08-2025 Thyrotropin [Units/volume] in Serum or Plasma THYROID STIMULATING HORMONE Lab Routine Postoperative hypothyroidism Expected: 09/08/2025 (Approximate), Expires: 12/08/2025 Work Phone: Comment on above: Expected: 09/08/2025 (Approximate), Expires: 12/08/2025 Start: 09-08-2025 End: 12-08-2025 Thyroxine (T4) free [Mass/volume] in Serum or Plasma T4 FREE/FREE THYROXINE Lab Routine Postoperative hypothyroidism Expected: 09/08/2025 (Approximate), Expires: 12/08/2025 [facility] Comment on above: Expected: 09/08/2025 (Approximate), Expires: 12/08/2025 Start: 09-20-2024 End: 12-20-2024 Thyrotropin [Units/volume] in Serum or Plasma TSH BLD Lab Routine Postoperative hypothyroidism Expected: 09/20/2024 (Approximate), Expires: 12/20/2024 Work Phone: Comment on above: Expected: 09/20/2024 (Approximate), Expires: 12/20/2024 Start: 09-20-2024 End: 12-20-2024 Thyroxine (T4) free [Mass/volume] in Serum or Plasma T4 FREE/FREE THYROX Lab Routine Postoperative hypothyroidism Expected: 09/20/2024 (Approximate), Expires: 12/20/2024 Work Phone: Comment on above: Expected: 09/20/2024 (Approximate), Expires: 12/20/2024 Start: 09-18-2024 End: 09-18-2024 Patient encounter procedure 09/18/2024 10:00 AM EST Office Visit [facility] Endocrinology [address] [place], [place] [id number] Alcides Ramon DO [address] [place], [place] [id number] thyroid [facility] Endocr[facility]ology Comment on above: thyroid Start: 06-11-2024 Covid-19 Vaccine () Covid-19 Vaccine () [facility] Start: 06-11-2024 Covid-19 Vaccine () Covid-19 Vaccine () [facility] Start: 06-11-2024 Influenza vaccination [facility] Start: 10-11-2023 Behavioral Health Screening Behavioral Health Screening [facility] Start: 09-14-2023 End: 11-14-2023 Thyrotropin [Units/volume] in Serum or Plasma TSH BLD Lab Routine Postoperative hypothyroidism Expected: 09/14/2023 (Approximate), Expires: 11/14/2023 Work Phone: Comment on above: Expected: 09/14/2023 (Approximate), Expires: 11/14/2023 Start: 09-14-2023 End: 11-14-2023 Thyroxine (T4) free [Mass/volume] in Serum or Plasma T4 FREE/FREE THYROX Lab Routine Postoperative hypothyroidism Expected: 09/14/2023 (Approximate), Expires: 11/14/2023 Work Phone: Comment on above: Expected: 09/14/2023 (Approximate), Expires: 11/14/2023 Start: 09-01-2023 Covid-19 Vaccine ( season) Covid-19 Vaccine () [facility] Start: 06-11-2023 Influenza vaccination Influenza Vacc ine (#1) [facility] Start: 10-11-2022 Depression Assessment Depression Ass [facility] Start: 09-24-2022 Patient discharge [facility] Work Phone: Start: 06-11-2022 Influenza vaccination [facility] Start: 02-13-2022 End: 04-15-2022 T4 FREE/FREE THYROX T4 FREE/FREE THYROX Lab Routine Postoperative hypothyroidism Expected: 02/13/2022, Expires: 04/15/2022 Work Phone: Comment on above: Expected: 02/13/2022 , Expires: 04/15/2022 Start: 02-13-2022 End: 04-15-2022 Thyrotropin [Units/volume] in Serum or Plasma TSH BLD Lab Routine Postoperative hypothyroidism Expected: 02/13/2022, Expires: 04/15/2022 Work Phone: Comment on above: Expected: 02/13/2022 , Expires: 04/15/2022 Start: 10-11-2021 DEPRESSION ASSESSMENT DEPRESSION ASS ESSMENT [facility] Start: 09-26-2021 COVID-19 VACCINE (3 - Booster for Moderna series) COVID-19 VACCINE (3 - Booster for Moderna series) [facility] Start: 06-21-2021 COVID-19 VACCINE (3 - Booster for Moderna series) COVID-19 VACCINE (3 - Booster for Moderna series) [facility] Start: 02-20-2018 HPV TESTING HPV TESTING [facility] Start: 02-20-2018 Screening for malignant neoplasm of cervix HPV Testing [facility] Start: 08-28-2015 PAP TESTING PAP TESTING [facility] Start: 08-28-2015 Screening for malignant neoplasm of cervix Pap Testing [facility] Start: 08-28-2013 Screening for malignant neoplasm of cervix Cervical Cancer Screening [facility] Start: 02-20-2006 ANNUAL PCP TEAM CHRONIC DISEASE VISIT ANNUAL PCP TEAM CHRONIC DISEASE VISIT [facility] Start: 02-20-2006 Anxiety Screening Anxiety Screening [facility] Start: 02-20-2006 Depression Screening Depression Scre ening [facility] Start: 02-20-2006 HEPATITIS C SCREENING HEPATITIS C [facility] Start: 02-20-2006 Hepatitis C screening Hepatitis C [facility] Start: 02-20-2006 HIV SCREENING HIV SCREENING [facility] Start: 02-20-2006 HIV screening HIV Screening [facility] Start: 05-19-2002 Urine microalbumin profile [facility] Start: 2000 Adult depression screening assessment DEPRESSION SCREENING [facility] Patient Education ED GERD (Adult) [facility] Work Phone: Patient referral [facility] Work Phone: [facility] Immunizations Immunization Date Immunization Notes Care Provider Nunu man 08-18-2018 influenza virus vaccine, unspecified formulation Calin Rossi MD Work Phone: [facility] 10-29-2017 influenza, injectabl e, quadrivalent, preservative free Dr. Mehdi Rivera Work Phone: [facility] 10-29-2017 influenza, seasonal, injectable Dr. Mehdi Rivera Work Phone: [facility] Work Phone: 07-31-2014 influenza, seasonal, injectable Alcides Ramon DO Work Phone: [facility] Work Phone: 05-01-2005 Meningococcal, MCV4, unspecified conjugate formulation(groups A, C, Y and W-135) Alcides Ramon DO Work Phone: [facility] Work Phone: 05-18-2002 tetanus and diphther ia toxoids, adsorbed, preservative free, for adult use (2 Lf of tetanus toxoid and 2 Lf of diphtheria toxoid) Alcides Ramon DO Work Phone: [facility] Work Phone: 05-23-2001 hepatitis B vaccine, pediatric or pediatric/adolescent dosage Alcides Ramon DO Work Phone: [facility] Work Phone: 07-12-2000 hepatitis B vaccine, pediatric or pediatric/adolescent dosage Alcides Ramon DO Work Phone: [facility] Work Phone: 05-20-2000 hepatitis B vaccine, pediatric or pediatric/adolescent dosage Alcides Ramon DO Work Phone: [facility] Work Phone: 05-20-2000 measles, mumps and rubella virus vaccine Alcides Ramon DO Work Phone: [facility] Work Phone: 04-24-1993 diphtheria, tetanus toxoids and acellular pertussis vaccine Alcides Ramon DO Work Phone: [facility] Work Phone: 04-24-1993 trivalent poliovirus vaccine, live, oral Alcides Cedillobrowski DO Work Phone: [facility] Work Phone: 05-09-1990 diphtheria, tetanus toxoids and pertussis vaccine Alcides Ramon DO Work Phone: [facility] Work Phone: 05-09-1990 trivalent poliovirus vaccine, live, oral Alcides Prosper DO Work Phone: [facility] Work Phone: 02-20-1990 Chicken Pox (disease) Alcides Prosper DO Work Phone: [facility] Work Phone: 09-09-1989 haemophilus influenz ae type b vaccine, PRP-D conjugate Alcides Prosper DO Work Phone: [facility] Work Phone: 05-25-1989 measles, mumps and rubella virus vaccine Alcides Prosper DO Work Phone: [facility] Work Phone: 1988 diphtheria, tetanus toxoids and pertussis vaccine Alcides Ramon DO Work Phone: [facility] Work Phone: 1988 diphtheria, tetanus toxoids and pertussis vaccine Alcides Ramon DO Work Phone: [facility] Work Phone: 1988 diphtheria, tetanus toxoids and pertussis vaccine Alcides Ramon DO Work Phone: [facility] Work Phone: 1988 trivalent poliovirus vaccine, live, oral Alcides Ramon DO Work Phone: [facility] Work Phone: 1988 trivalent poliovirus vaccine, live, oral Alcides Ramon DO Work Phone: [facility] Work Phone: Payers Date Payer Category Payer Self-pay [id number] 2019 Unknown MMO MMO [employer] [id number] 2019-Present [phone] [address] [place] [address] O [id number] 2019 Unknown [id number] 2014 Unknown [id number] Unknown [id number] Unknown [id number] Unknown [id number] Unknown [id number] Unknown [id number] Social History Date Type Detail Facility Start: 08-31-2011 Tobacco smoking stat us NHIS Never smoked tobacco [facility] Start: 09-15-2021 End: 09-18-2024 Alcohol intake Current non-drinker of alcohol (finding) [facility] Start: 1990 Sex Assigned At Not on file [facility] Start: 08-31-2011 Tobacco use and exposure Smokeless tobacco non-user [facility] Start: 09-04-2022 End: 09-14-2022 Exposure to SARS-CoV-2 (event) Not sure [facility] Start: 09-23-2022 End: 01-07-2023 Tobacco smoking status NHIS Unknown if ever smoked [facility] Start: 1990 Sex Assigned At Female [facility] Start: 12-14-2018 End: 08-02-2023 History of Social function [facility] Start: 12-14-2018 End: 08-02-2023 Tobacco use panel [facility] PHQ2 Score 0 [facility] Goals Date Patient Goal Desired Activity /State Personal health goal Mental Status Date Assessment Result Facility 09-24-2022 Cognitive function Voice/Name [facility] Work Phone: Clinical Notes 01-09-2019 to 09-18-2024 Alcides Ramon DO - 09/18/2024 10:12 AM ESTTelephone Encounter - Alessia Balbuena MA - 09/13/2024 7:41 AM ESTTelephone Encounter - Alessia Balbuena MA - 09/13/2024 7:41 AM EST Note Date & Type Note Facility 09-18-2024 Note HNO ID: [id number] Author: ALCIDES RAMON DO Service: ? Author Type: Physician Type: Progress Notes Filed: 09/18/2024 10:32 Note Text: Subjective HPI Thyroid Problem 07/24/17: TSH 0.011 (0.40-5.50), free T4 2.5 (0.9-1.7) 08/04/17: Thyroid ultrasound at [facility]: 4.3 x 3.1 x 2.5 cm hypervascular solid mass left lobe. Isthmus 9 x 6 x 5 mm solid nodule. Right lobe is homogeneous. Regional lymph nodes are normal. 08/20/17: TSI <13, microsomal antibody 20 (0-35) 11/01/17: TSH <0.01, free T4 1.21, free T3 5.4 -- increased methimazole to 7.5 mg daily. 01/10/18: TSH <0.01, free T4 1.24 02/03/18: TSH <0.01, free T4 1.41 03/03/18: TSH <0.01, free T4 1.51 (0.76-1.46), free T3 5.6 (2.18-3.98) 03/18/18: Initial visit. 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 Pt is currently 35 weeks and is due early April. She lives in [place] and has been following with manager highway Dr. Whitfield and attending psychiatrist Dr. Jane in [facility]. Pt states she was diagnosed with hyperthyroidism before she got in July,. She had no issues with her first in 2013. In 2016 she noted a visible left neck lump and had thyroid ultrasound done at [facility] showing large neck mass (trying to obtain report). She states she never was able to get thyroid uptake and scan done due to + test. TSI and microsomal antibody was normal. She was initially started on PTU and then was switched to methimazole in the second trimester. She has been on methimazole 7.5 mg daily for the past few months. Pt states that Dr. Jane was suggesting that pt get I-131 treatment immediately after delivery and pt is not wanting to do that as she wants to breast feed. Denies difficulty swallowing or pressure sensation. No family hx of thyroid cancer or thyroid disorders. Pt notes occasional palpitations and a fine tremor which has improved since methimazole dose was increased. States she had a rash a few weeks ago which then went away. Last labs done 03/03 - reviewed written note - no changVisible/palpable large left thyroid mass in the setting of 3rd trimester of with hyperthyroidism. Thyroid antibody testing was normal in the 1st trimester. Taking methimazole 7.5 mg daily. Pt is here for second opinion as she desires to breast feed after delivery and was encouraged to have I-131 treatment immediately after delivery by previous attending psychiatrist. Thyroid ultrasound performed in the office by me today reveals: The right lobe is not enlarged and measures 4.66 x 1.05 x 1.16 cm. It is heterogeneous containing some small blood vessels with a few tiny nodular areas and no dominant nodules. The isthmus measures 0.23 cm in depth. The left lobe is comprised of a large heterogeneous mass that takes up the entire lobe measuring 4.66 x 1.05 x 1.16 cm with smooth borders and increased vascularity and no calcifications. No abnormal appearing neck lymph nodes seen. Due to large size and appearance recommend that pt consider left thyroid lobectomy in the future rather than I-131 treatment as this will provide definitive treatment of hyperthyroidism and rule out malignancy (reviewed lower risk of malignancy with toxic nodule). 05/19/18: TSH 0.008, free T4 1.4, free T3 elevated 6.9. CBC/CMP normal. Total protein slightly low. 05/23/18: She delivered a healthy baby boy 6 weeks ago named Aneudy who is at appt today. Free T3 is now higher. Increase methimazole to 15 mg daily - she can space out the dosing to avoid nausea and take dose just after a feed. 07/07/18: TSH <0.001 ( 1.0400-5.500), Free T4 1.1, Free T3 4.4 (2.3-4.1) 07/18/18: Free T4 1.1, Free T3 4.6 (2.3-4.1) 08/25/18: TSH <0.005(0.400-5.500), Free T4 1.0, Free T3 4.2 ( 2.3-4.1) 12/14/18: Left thyroid lobectomy at [facility] by Dr. 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 No angiolymphatic invasion or extrathyroidal extension. One lymph node negative for carcinoma. 01/05/19: TSH 14.64, free T4 low 0.3, free T3 low at 1.6, calcium normal 9.6 01/09/19 visit: Pt was in communication a few days ago noting severe fatigue. Started levothyroxine 75 mcg daily 2 days ago via MyChart. 03/09/19: TSH 1.200, Free T4 1.2, Free T3 2.4. Continue levothyroxine 75 mcg daily. 07/06/19: TSH 1.380, Free T4 1.2 09/11/19: Recent labs reviewed with pt. Pt had labs done in June because she was not feeling well with tension headaches and wanted to rule out out any thyroid abnormalities. Pt currently taking levothyroxine 75 mcg daily. Denies difficulty swallowing or pressure sensation. No neck enlargement. Weight is stable. Microscopic focus 4 mm papillary thyroid cancer noted on path report of left lobe. Since right lobe was heterogeneous in the past I repeated ultrasound. Thyroid ultrasound performed in the of (more content not included)... [facility] 09-18-2024 History of Presen t illness Narrative Subjective HPI Thyroid Problem 07/24/17: TSH 0.011 (0.40-5.50), free T4 2.5 (0.9-1.7) 08/04/17: Thyroid ultrasound at [facility]: 4.3 x 3.1 x 2.5 cm hypervascular solid mass left lobe. Isthmus 9 x 6 x 5 mm solid nodule. Right lobe is homogeneous. Regional lymph nodes are normal. 08/20/17: TSI <13, microsomal antibody 20 (0-35) 11/01/17: TSH <0.01, free T4 1.21, free T3 5.4 -- increased methimazole to 7.5 mg daily. 01/10/18: TSH <0.01, free T4 1.24 02/03/18: TSH <0.01, free T4 1.41 03/03/18: TSH <0.01, free T4 1.51 (0.76-1.46), free T3 5.6 (2.18-3.98) 03/18/18: Initial visit. 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 Pt is currently 35 weeks and is due early April. She lives in [place] and has been following with manager highway Dr. Whitfield and attending psychiatrist Dr. Jane in [facility]. Pt states she was diagnosed with hyperthyroidism before she got in July,. She had no issues with her first in 2013. In 2016 she noted a visible left neck lump and had thyroid ultrasound done at [facility] showing large neck mass (trying to obtain report). She states she never was able to get thyroid uptake and scan done due to + test. TSI and microsomal antibody was normal. She was initially started on PTU and then was switched to methimazole in the second trimester. She has been on methimazole 7.5 mg daily for the past few months. Pt states that Dr. Jane was suggesting that pt get I-131 treatment immediately after delivery and pt is not wanting to do that as she wants to breast feed. Denies difficulty swallowing or pressure sensation. No family hx of thyroid cancer or thyroid disorders. Pt notes occasional palpitations and a fine tremor which has improved since methimazole dose was increased. States she had a rash a few weeks ago which then went away. Last labs done 03/03 - reviewed written note - no changVisible/palpable large left thyroid mass in the setting of 3rd trimester of with hyperthyroidism. Thyroid antibody testing was normal in the 1st trimester. Taking methimazole 7.5 mg daily. Pt is here for second opinion as she desires to breast feed after delivery and was encouraged to have I-131 treatment immediately after delivery by previous attending psychiatrist. Thyroid ultrasound performed in the office by me today reveals: The right lobe is not enlarged and measures 4.66 x 1.05 x 1.16 cm. It is heterogeneous containing some small blood vessels with a few tiny nodular areas and no dominant nodules. The isthmus measures 0.23 cm in depth. The left lobe is comprised of a large heterogeneous mass that takes up the entire lobe measuring 4.66 x 1.05 x 1.16 cm with smooth borders and increased vascularity and no calcifications. No abnormal appearing neck lymph nodes seen. Due to large size and appearance recommend that pt consider left thyroid lobectomy in the future rather than I-131 treatment as this will provide definitive treatment of hyperthyroidism and rule out malignancy (reviewed lower risk of malignancy with toxic nodule). 05/19/18: TSH 0.008, free T4 1.4, free T3 elevated 6.9. CBC/CMP normal. Total protein slightly low. 05/23/18: She delivered a healthy baby boy 6 weeks ago named Aneudy who is at appt today. Free T3 is now higher. Increase methimazole to 15 mg daily - she can space out the dosing to avoid nausea and take dose just after a feed. 07/07/18: TSH <0.001 ( 1.0400-5.500), Free T4 1.1, Free T3 4.4 (2.3-4.1) 07/18/18: Free T4 1.1, Free T3 4.6 (2.3-4.1) 08/25/18: TSH <0.005(0.400-5.500), Free T4 1.0, Free T3 4.2 ( 2.3-4.1) 12/14/18: Left thyroid lobectomy at [facility] by Dr. 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 No angiolymphatic invasion or extrathyroidal extension. One lymph node negative for carcinoma. 01/05/19: TSH 14.64, free T4 low 0.3, free T3 low at 1.6, calcium normal 9.6 01/09/19 visit: Pt was in communication a few days ago noting severe fatigue. Started levothyroxine 75 mcg daily 2 days ago via MyChart. 03/09/19: TSH 1.200, Free T4 1.2, Free T3 2.4. Continue levothyroxine 75 mcg daily. 07/06/19: TSH 1.380, Free T4 1.2 09/11/19: Recent labs reviewed with pt. Pt had labs done in June because she was not feeling well with tension headaches and wanted to rule out out any thyroid abnormalities. Pt currently taking levothyroxine 75 mcg daily. Denies difficulty swallowing or pressure sensation. No neck enlargement. Weight is stable. Microscopic focus 4 mm papillary thyroid cancer noted on path report of left lobe. Since right lobe was heterogeneous in the past I repeated ultrasound. Thyroid ultrasound performed in the office by me today (compared to 03/28/18) reveals: The right lobe is not enlarged and measures 4.6 x 1.72 x 1.04 cm. It is heterogeneous containing some small blood vessels with a few tiny hypoechoic nodular areas (2-3 mm) and no dominant nodules. The left thyroid lobe is now surgically absent. Small remnant remains. No abnormal appearing neck lymph nodes seen. I reviewed the images with the pt in real time. Impression: Stability of remaining right thyroid lobe. 08/12/20: TSH 0.732, free T4 1.2. Continue levothyroxine 75 mcg daily. 08/04/21: TSH 1.05, free T4 1.4 09/15/21 visit: Recent labs reviewed with pt. Taking levothyroxine 75 mcg daily properly with no missed doses. Also due for neck ultrasound today to re-evaluate remaining right thyroid lobe. No new neck concerns. No neck masses or tenderness. Had COVID in Nov and has since been vaccinated. Thyroid ultrasound done in the office by me today to re-evaluate remaining right lobe (compared to 09/11/19) reveals: The right lobe is not enlarged and measures 4.44 x 1.16 x 1.21 cm. It is heterogeneous containing some small blood vessels with a few tiny hypoechoic nodular areas (2-3 mm) and no dominant nodules. The left thyroid lobe is surgically absent. A small remnant remains. No abnormal appearing neck lymph nodes seen. I reviewed the images with the pt in real time. Impression: Stability of remaining right thyroid lobe. 09/10/22: TSH 0.837, free T4 1.4 09/14/22 visit: Recent labs reviewed with pt. They are at goal. Taking levothyroxine 75 mcg daily properly with no missed doses. States had COVID 3 times. 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 Pt requests possibly trying brand Synthroid if insurance will cover. Will change to Synthroid 75 mcg daily per pt request if covered by insurance (just got 90 day supply of generic). If not, then pt will let me know and will continue generic. 09/14/23: TSH 1.25, free T4 1.4 09/20/23 visit: Recent labs reviewed with pt. Taking Synthroid 75 mcg daily properly with no missed doses. Is getting brand Synthroid for $40 for 90 day supply and feels better on it. Recently diagnosed with ADHD. Thyroid ultrasound done in the office by me today to re-evaluate remaining right lobe (compared to 09/15/21) reveals: The right lobe is not enlarged and measures 4.34 x 1.19 x 1.23 cm. It remains heterogeneous containing some small blood vessels with a few tiny hypoechoic nodular areas (2-3 mm) and no dominant nodules. The left thyroid lobe is surgically absent. A small remnant remains. No abnormal appearing neck lymph nodes seen. I reviewed the images with the pt in real time. Impression: Stability of remaining right thyroid lobe. Plan: Will repeat ultrasound in 2 years (around Sep, 2025) 09/15/24: TSH 0.785, free T4 1.5 09/18/24 visit: Recent labs reviewed with pt. Taking Synthroid 75 mcg daily properly with no missed doses. Is now on lower dose of pantoprazole - spacing it out from pantoprazole. Notes overall feeling well. Is taking multivitamin in the evening. No difficulty swallowing or pressure sensation. No neck enlargement. Last 2 Encounter Wt Readings: Date: Wt: 09/18/2024 61.7 kg (136 lb) 09/20/2023 60.9 kg (134 lb 4.8 oz) PAST MEDICAL HISTORY Diagnosis Date Hyperthyroidism Hyperthyroidism affecting in third trimester Other acne Post-surgical hypothyroidism Proteinuria since recent Toxic thyroid nodule PAST SURGICAL HISTORY Procedure Laterality Date COLONOSCOPY DIAGNOSTIC 09/2021 COLONOSCOPY DIAGNOSTIC 01/2012 EGD DIAGNOSTIC 09/2021 EGD DIAGNOSTIC 09/2022 SCLEROTHERAPY MULT VEINS Left 02/17/2019 THYROIDECTOMY TOTAL/COMPLETE Left 12/14/2018 partial FAMILY HISTORY Problem Relation Age of Onset Diabetes Sister Type II Diabetes Maternal Grandmother other (Rheumatoid Arthritis) Maternal Grandmother Cancer Maternal Grandfather lung Colon Cancer No Family History Social History Tobacco Use Smoking status: Never Smokeless tobacco: Never Substance Use Topics Alcohol use: No Drug use: No Current Meds pantoprazole DR (PROTONIX) 20 mg tablet Take 1 tablet by mouth two times a day before meals. SYNTHROID 75 mcg tablet Take 1 tablet by mouth once daily. atomoxetine (STRATTERA) 18 mg capsule Take by mouth. citalopram (CELEXA) 20 mg tablet Take by mouth once daily. Loperamide HCl (IMODIUM) 2 mg tab Take as directed. (Patient not taking: Reported on 09/18/2024) Objective BP 123/74 (BP Site: Right Arm, BP Position: Sitting, BP Cuff Size: Regular Adult) Pulse 94 Ht 167.6 cm (5' 6) Wt 61.7 kg (136 lb) LMP 09/06/2023 SpO2 99% BMI 21.95 kg/m Physical Exam HENT: Head: Normocephalic and atraumatic. Eyes: Conjunctiva/sclera: Conjunctivae normal. Neck: Comments: Midline surgical scar. Remaining right thyroid lobe is slightly palpable Cardiovascular: Rate and Rhythm: Normal rate and regular rhythm. Heart sounds: Normal heart sounds. No murmur heard. Pulmonary: Effort: Pulmonary effort is normal. Breath sounds: Normal breath sounds. Lymphadenopathy: Cervical: No cervical adenopathy. Skin: General: Skin is warm and dry. Neurological: Mental Status: She is alert and oriented to person, place, and time. Gait: Gait is intact. Psychiatric: Mood and Affect: Mood and affect normal. Cognition and Memory: Memory normal. Judgment: Judgment normal. Latest Ref Rng 09/14/2023 09/15/2024 TSH 0.270 - 4.200 mIU/L 1.250 0.785 Free T4 0.9 - 1.7 ng/dL 1.4 1.5 ASSESSMENT/PLAN: 1. Postoperative hypothyroidism - ICD9: 244.0, ICD10: E89.0 (primary diagnosis) Pt remains clinically and biochemically euthyroid. Continue Synthroid 75 mcg daily. - SYNTHROID 75 MCG TABLET - THYROID STIMULATING HORMONE - T4 FREE/FREE THYROXINE 2. History of partial thyroidectomy - ICD9: 246.8, ICD10: E89.0 3. History of papillary adenocarcinoma of thyroid - ICD9: V10.87, ICD10: Z85.850 Left thyroid lobectomy done for toxic nodule with microscopic focus 4 mm papillary thyroid cancer noted on final pathology report of left lobe. Thyroid exam today is unremarkable. Doing ultrasound q 2 years to ensure stability of right lobe. Last ultrasound in Sep, 2023 was stable. Will repeat ultrasound at next appt in 1 year. Follow-up in 1 year with labs done before visit. Alcides Ramon DO documented in this encounter [facility] 09-13-2024 Telephone encounter Note Patient calling in requesting refills as follows: Requested Prescriptions Pending Prescriptions Disp Refills pantoprazole DR (PROTONIX) 20 mg tablet 60 tablet 0 RICHARD - 08/02/2023 [facility] 09-13-2024 Miscellaneous Notes Patient calling in requesting refills as follows: Requested Prescriptions Pending Prescriptions Disp Refills pantoprazole DR (PROTONIX) 20 mg tablet 60 tablet 0 RICHARD - 08/02/2023 documented in this encounter [facility] 03-13-2024 Note HNO ID: [id number] Author: TELMA PHAN, DO Service: ? Author Type: Physician Type: Progress Notes Filed: 04/05/2024 10:59 Note Text: [facility] [place] DEPARTMENT OF VASCULAR SURGERY OUTPATIENT VISIT DATE March 13, 2024 OUTPATIENT VISIT TYPE ESTABLISHED SERVICE DATE: 03/13/2024 SERVICE TIME: 3:50 PM PRIMARY CARE PHYSICIAN: Mehdi iRvera MD HISTORY OF PRESENT ILLNESS: Ms. Cooper is a 34 year old female who presents today for a vascular surgery follow-up visit for symptomatic spider varicose veins. Reviewed procedure and consent obtained PAST MEDICAL HISTORY Diagnosis Date Hyperthyroidism Hyperthyroidism affecting in third trimester Other acne Post-surgical hypothyroidism Proteinuria since recent Toxic thyroid nodule PAST SURGICAL HISTORY Procedure Laterality Date COLONOSCOPY DIAGNOSTIC 09/2021 COLONOSCOPY DIAGNOSTIC 01/2012 EGD DIAGNOSTIC 09/2021 EGD DIAGNOSTIC 09/2022 SCLEROTHERAPY MULT VEINS Left 02/17/2019 THYROIDECTOMY TOTAL/COMPLETE Left 12/14/2018 partial SOCIAL HISTORY Social History Tobacco Use Smoking status: Never Smokeless tobacco: Never Substance Use Topics Alcohol use: No Drug use: No MEDICATIONS: pantoprazole DR (PROTONIX) 20 mg tablet Take 1 tablet by mouth two times a day before meals. SYNTHROID 75 mcg tablet Take 1 tablet by mouth once daily. atomoxetine (STRATTERA) 18 mg capsule Take by mouth. citalopram (CELEXA) 20 mg tablet Take by mouth once daily. Loperamide HCl (IMODIUM) 2 mg tab Take as directed. pantoprazole DR (PROTONIX) 20 mg tablet take 1 tablet by mouth twice daily before meal(s) (Patient not taking: Reported on 03/13/2024) ALLERGIES: ALLERGIES No Known Allergies PHYSICAL EXAM: BP 100/68 (BP Site: Left Arm, BP Position: Sitting, BP Cuff Size: Regular Adult) Pulse 81 LMP 09/06/2023 SpO2 99% The patient was placed in the supine position and the bilateral lower extremities were cleansed with isopropyl alcohol. Syringes containing 2 mL of 0.5% Asclera were prepared and veins in the lateral legs were injected using an angled 30-gauge needle. A total of 2 mL of solution injection. Once all injections were completed the legs were cleansed with isopropyl alcohol and the patient put on compression. There were no complications and the patient tolerated the procedure well. IMPRESSION: Ms. Cooper is a 34 year old female with symptomatic varicose spider veins . PLAN and RECOMMENDATIONS: Reviewed home going instructions Follow up as needed SIGNATURE: Telma Phan DO PATIENT NAME: Christina Cooper DATE: March 13, 2024 TIME: 3:50 PM [facility] 03-13-2024 History of Presen t illness Narrative Images from the original note were not included. [facility] [place] DEPARTMENT OF VASCULAR SURGERY OUTPATIENT VISIT DATE March 13, 2024 OUTPATIENT VISIT TYPE ESTABLISHED SERVICE DATE: 03/13/2024 SERVICE TIME: 3:50 PM PRIMARY CARE PHYSICIAN: Mehdi Rivera MD HISTORY OF PRESENT ILLNESS: Ms. Cooper is a 34 year old female who presents today for a vascular surgery follow-up visit for symptomatic spider varicose veins. Reviewed procedure and consent obtained PAST MEDICAL HISTORY Diagnosis Date Hyperthyroidism Hyperthyroidism affecting in third trimester Other acne Post-surgical hypothyroidism Proteinuria since recent Toxic thyroid nodule PAST SURGICAL HISTORY Procedure Laterality Date COLONOSCOPY DIAGNOSTIC 09/2021 COLONOSCOPY DIAGNOSTIC 01/2012 EGD DIAGNOSTIC 09/2021 EGD DIAGNOSTIC 09/2022 SCLEROTHERAPY MULT VEINS Left 02/17/2019 THYROIDECTOMY TOTAL/COMPLETE Left 12/14/2018 partial SOCIAL HISTORY Social History Tobacco Use Smoking status: Never Smokeless tobacco: Never Substance Use Topics Alcohol use: No Drug use: No MEDICATIONS: pantoprazole DR (PROTONIX) 20 mg tablet Take 1 tablet by mouth two times a day before meals. SYNTHROID 75 mcg tablet Take 1 tablet by mouth once daily. atomoxetine (STRATTERA) 18 mg capsule Take by mouth. citalopram (CELEXA) 20 mg tablet Take by mouth once daily. Loperamide HCl (IMODIUM) 2 mg tab Take as directed. pantoprazole DR (PROTONIX) 20 mg tablet take 1 tablet by mouth twice daily before meal(s) (Patient not taking: Reported on 03/13/2024) ALLERGIES: ALLERGIES No Known Allergies PHYSICAL EXAM: BP 100/68 (BP Site: Left Arm, BP Position: Sitting, BP Cuff Size: Regular Adult) Pulse 81 LMP 09/06/2023 SpO2 99% The patient was placed in the supine position and the bilateral lower extremities were cleansed with isopropyl alcohol. Syringes containing 2 mL of 0.5% Asclera were prepared and veins in the lateral legs were injected using an angled 30-gauge needle. A total of 2 mL of solution injection. Once all injections were completed the legs were cleansed with isopropyl alcohol and the patient put on compression. There were no complications and the patient tolerated the procedure well. IMPRESSION: Ms. Cooper is a 34 year old female with symptomatic varicose spider veins . PLAN and RECOMMENDATIONS: Reviewed home going instructions Follow up as needed SIGNATURE: Telma Phan DO PATIENT NAME: Christina Cooper DATE: March 13, 2024 TIME: 3:50 PM documented in this encounter [facility] 01-14-2024 Miscellaneous Notes Pharmacy calls in requesting the following refill(s): Requested Prescriptions Pending Prescriptions Disp Refills pantoprazole DR (PROTONIX) 20 mg tablet 60 tablet 5 Sig: Take 1 tablet by mouth two times a day before meals. Last OV:08-02-23 Next OV:NA Last Procedure:EGD 09-16-23 Next Procedure:NA Sue Grant MA documented in this encounter [facility] 09-20-2023 History of Presen t illness Narrative Subjective HPI Thyroid Problem 07/24/17: TSH 0.011 (0.40-5.50), free T4 2.5 (0.9-1.7) 08/04/17: Thyroid ultrasound at [facility]: 4.3 x 3.1 x 2.5 cm hypervascular solid mass left lobe. Isthmus 9 x 6 x 5 mm solid nodule. Right lobe is homogeneous. Regional lymph nodes are normal. 08/20/17: TSI <13, microsomal antibody 20 (0-35) 11/01/17: TSH <0.01, free T4 1.21, free T3 5.4 -- increased methimazole to 7.5 mg daily. 01/10/18: TSH <0.01, free T4 1.24 02/03/18: TSH <0.01, free T4 1.41 03/03/18: TSH <0.01, free T4 1.51 (0.76-1.46), free T3 5.6 (2.18-3.98) 03/18/18: Initial visit. 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 Pt is currently 35 weeks and is due early April. She lives in [place] and has been following with manager highway Dr. Whitfield and attending psychiatrist Dr. Jane in [facility]. Pt states she was diagnosed with hyperthyroidism before she got in July,. She had no issues with her first in 2013. In 2016 she noted a visible left neck lump and had thyroid ultrasound done at [facility] showing large neck mass (trying to obtain report). She states she never was able to get thyroid uptake and scan done due to + test. TSI and microsomal antibody was normal. She was initially started on PTU and then was switched to methimazole in the second trimester. She has been on methimazole 7.5 mg daily for the past few months. Pt states that Dr. Jane was suggesting that pt get I-131 treatment immediately after delivery and pt is not wanting to do that as she wants to breast feed. Denies difficulty swallowing or pressure sensation. No family hx of thyroid cancer or thyroid disorders. Pt notes occasional palpitations and a fine tremor which has improved since methimazole dose was increased. States she had a rash a few weeks ago which then went away. Last labs done 03/03 - reviewed written note - no changVisible/palpable large left thyroid mass in the setting of 3rd trimester of with hyperthyroidism. Thyroid antibody testing was normal in the 1st trimester. Taking methimazole 7.5 mg daily. Pt is here for second opinion as she desires to breast feed after delivery and was encouraged to have I-131 treatment immediately after delivery by previous attending psychiatrist. Thyroid ultrasound performed in the office by me today reveals: The right lobe is not enlarged and measures 4.66 x 1.05 x 1.16 cm. It is heterogeneous containing some small blood vessels with a few tiny nodular areas and no dominant nodules. The isthmus measures 0.23 cm in depth. The left lobe is comprised of a large heterogeneous mass that takes up the entire lobe measuring 4.66 x 1.05 x 1.16 cm with smooth borders and increased vascularity and no calcifications. No abnormal appearing neck lymph nodes seen. Due to large size and appearance recommend that pt consider left thyroid lobectomy in the future rather than I-131 treatment as this will provide definitive treatment of hyperthyroidism and rule out malignancy (reviewed lower risk of malignancy with toxic nodule). 05/19/18: TSH 0.008, free T4 1.4, free T3 elevated 6.9. CBC/CMP normal. Total protein slightly low. 05/23/18: She delivered a healthy baby boy 6 weeks ago named Aneudy who is at appt today. Free T3 is now higher. Increase methimazole to 15 mg daily - she can space out the dosing to avoid nausea and take dose just after a feed. 07/07/18: TSH <0.001 ( 1.0400-5.500), Free T4 1.1, Free T3 4.4 (2.3-4.1) 07/18/18: Free T4 1.1, Free T3 4.6 (2.3-4.1) 08/25/18: TSH <0.005(0.400-5.500), Free T4 1.0, Free T3 4.2 ( 2.3-4.1) 12/14/18: Left thyroid lobectomy at [facility] by Dr. 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 No angiolymphatic invasion or extrathyroidal extension. One lymph node negative for carcinoma. 01/05/19: TSH 14.64, free T4 low 0.3, free T3 low at 1.6, calcium normal 9.6 01/09/19 visit: Pt was in communication a few days ago noting severe fatigue. Started levothyroxine 75 mcg daily 2 days ago via [employer]. 03/09/19: TSH 1.200, Free T4 1.2, Free T3 2.4. Continue levothyroxine 75 mcg daily. 07/06/19: TSH 1.380, Free T4 1.2 09/11/19: Recent labs reviewed with pt. Pt had labs done in June because she was not feeling well with tension headaches and wanted to rule out out any thyroid abnormalities. Pt currently taking levothyroxine 75 mcg daily. Denies difficulty swallowing or pressure sensation. No neck enlargement. Weight is stable. Microscopic focus 4 mm papillary thyroid cancer noted on path report of left lobe. Since right lobe was heterogeneous in the past I repeated ultrasound. Thyroid ultrasound performed in the office by me today (compared to 03/28/18) reveals: The right lobe is not enlarged and measures 4.6 x 1.72 x 1.04 cm. It is heterogeneous containing some small blood vessels with a few tiny hypoechoic nodular areas (2-3 mm) and no dominant nodules. The left thyroid lobe is now surgically absent. Small remnant remains. No abnormal appearing neck lymph nodes seen. I reviewed the images with the pt in real time. Impression: Stability of remaining right thyroid lobe. 08/12/20: TSH 0.732, free T4 1.2. Continue levothyroxine 75 mcg daily. 08/04/21: TSH 1.05, free T4 1.4 09/15/21 visit: Recent labs reviewed with pt. Taking levothyroxine 75 mcg daily properly with no missed doses. Also due for neck ultrasound today to re-evaluate remaining right thyroid lobe. No new neck concerns. No neck masses or tenderness. Had COVID in Nov and has since been vaccinated. Thyroid ultrasound done in the office by me today to re-evaluate remaining right lobe (compared to 09/11/19) reveals: The right lobe is not enlarged and measures 4.44 x 1.16 x 1.21 cm. It is heterogeneous containing some small blood vessels with a few tiny hypoechoic nodular areas (2-3 mm) and no dominant nodules. The left thyroid lobe is surgically absent. A small remnant remains. No abnormal appearing neck lymph nodes seen. I reviewed the images with the pt in real time. Impression: Stability of remaining right thyroid lobe. Plan: Will repeat ultrasound in 2 years (around Sep, 2023) 09/10/22: TSH 0.837, free T4 1.4 09/14/22 visit: Recent labs reviewed with pt. They are at goal. Taking levothyroxine 75 mcg daily properly with no missed doses. States had COVID 3 times. 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 Pt requests possibly trying brand Synthroid if insurance will cover. Last 2 Encounter Wt Readings: Date: Wt: 09/14/2022 60.1 kg (132 lb 6.4 oz) 04/03/2022 59.9 kg (132 lb) Will change to Synthroid 75 mcg daily per pt request if covered by insurance (just got 90 day supply of generic). If not, then pt will let me know and will continue generic. 09/14/23: TSH 1.25, free T4 1.4 09/20/23 visit: Recent labs reviewed with pt. Taking Synthroid 75 mcg daily properly with no missed doses. Is getting brand Synthroid for $40 for 90 day supply and feels better on it. Recently diagnosed with ADHD. Is noting some sinus congestion. Has not noticed any thyroid enlargement or neck concerns. Last 2 Encounter Wt Readings: Date: Wt: 09/20/2023 60.9 kg (134 lb 4.8 oz) 09/16/2023 59.9 kg (132 lb) PAST MEDICAL HISTORY Diagnosis Date Hyperthyroidism Hyperthyroidism affecting in third trimester Other acne Post-surgical hypothyroidism Proteinuria since recent Toxic thyroid nodule PAST SURGICAL HISTORY Procedure Laterality Date COLONOSCOPY DIAGNOSTIC 09/2021 COLONOSCOPY DIAGNOSTIC 01/2012 EGD DIAGNOSTIC 09/2021 EGD DIAGNOSTIC 09/2022 SCLEROTHERAPY MULT VEINS Left 02/17/2019 THYROIDECTOMY TOTAL/COMPLETE Left 12/14/2018 partial FAMILY HISTORY Problem Relation Age of Onset Diabetes Sister Type II Diabetes Maternal Grandmother other (Rheumatoid Arthritis) Maternal Grandmother Cancer Maternal Grandfather lung Colon Cancer No Family History Social History Tobacco Use Smoking status: Never Smokeless tobacco: Never Substance Use Topics Alcohol use: No Drug use: No Current Meds atomoxetine (STRATTERA) 18 mg capsule Take by mouth. pantoprazole DR (PROTONIX) 20 mg tablet Take 1 tablet by mouth two times a day before meals. citalopram (CELEXA) 20 mg tablet Take by mouth once daily. Loperamide HCl (IMODIUM) 2 mg tab Take as directed. SYNTHROID 75 mcg tablet Take 1 tablet by mouth once daily. Objective BP 96/59 (BP Site: Right Arm, BP Position: Sitting, BP Cuff Size: Regular Adult) Pulse 99 Ht 167.6 cm (5' 6) Wt 60.9 kg (134 lb 4.8 oz) LMP 09/06/2023 SpO2 100% BMI 21.68 kg/m Physical Exam Constitutional: Pt is oriented to person, place, and time and well-developed, well-nourished, and in no distress. Head: Normocephalic and atraumatic. Eyes: Conjunctivae and EOM are normal. Neck: midline surgical scar Pulmonary/Chest: Effort normal. Musculoskeletal: Normal range of motion. No edema. Neurological: Gait normal. Psychiatric: Mood, memory, affect and judgment normal. Component Latest Ref Rng & Units 09/14/2023 TSH 0.270 - 4.200 mIU/L 1.250 Free T4 0.9 - 1.7 ng/dL 1.4 ASSESSMENT/PLAN: 1. Postoperative hypothyroidism - ICD9: 244.0, ICD10: E89.0 (primary diagnosis) Thyroid labs are at goal. Continue Synthroid 75 mcg daily (pt prefers brand) Follow-up in 1 year with labs done the week before appt. - SYNTHROID 75 MCG TABLET - TSH BLD - T4 FREE/FREE THYROX 2. History of partial thyroidectomy - ICD9: 246.8, ICD10: E89.0 - US THYROID/PARATHYROID (POC) ENDO USE ONLY - US THYROID/PARATHYROID 3. Thyroid cancer (HCC) - ICD9: 193, ICD10: C73 Left thyroid lobectomy done for toxic nodule with microscopic focus 4 mm papillary thyroid cancer noted on final pathology report of left lobe. Doing ultrasound q 2 years to ensure stability or right lobe. Thyroid ultrasound done in the office by me today to re-evaluate remaining right lobe (compared to 09/15/21) reveals: The right lobe is not enlarged and measures 4.34 x 1.19 x 1.23 cm. It remains heterogeneous containing some small blood vessels with a few tiny hypoechoic nodular areas (2-3 mm) and no dominant nodules. The left thyroid lobe is surgically absent. A small remnant remains. No abnormal appearing neck lymph nodes seen. I reviewed the images with the pt in real time. Impression: Stability of remaining right thyroid lobe. Plan: Will repeat ultrasound in 2 years (around Sep, 2025) - US THYROID/PARATHYROID (POC) ENDO USE ONLY - US THYROID/PARATHYROID Alcides Ramon DO documented in this encounter [facility] 09-16-2023 Nurse Note POST OP LEARNING RESPONSE INSTRUCTION PROVIDED TO: Patient and family member METHOD OF INSTRUCTION: Written instruction - handouts Verbal instruction PATIENT / FAMILY RESPONSE: Information received as demonstrated by interest and questions FOLLOW-UP PLAN: Patient instructed to call with any further issues SUPPLEMENTAL MATERIAL: None REFERRAL (RECOMMENDATION): None Electronically Signed By: Eliza Almendarez RN In Department: AMBULATORY SURGERY [facility] 09-16-2023 Nurse Note POST OP LEARNING RESPONSE INSTRUCTION PROVIDED TO: Patient and family member METHOD OF INSTRUCTION: Written instruction - handouts Verbal instruction PATIENT / FAMILY RESPONSE: Information received as demonstrated by interest and questions FOLLOW-UP PLAN: Patient instructed to call with any further issues SUPPLEMENTAL MATERIAL: None REFERRAL (RECOMMENDATION): None Electronically Signed By: Eliza Almendarez RN In Department: AMBULATORY SURGERY PRE OP LEARNING ASSESSMENT PROCEDURE/SURGERY: GI PROCEDURES: EGD READINESS TO LEARN COGNITIVE ABILITY: Alert and oriented MOTIVATION TO LEARN: Interested FAMILY SUPPORT: High - Very involved in pt care PATIENT LEARNS BEST BY: Individual Instruction Verbal Instruction FACTORS AFFECTING LEARNING: None PHYSICAL LIMITATIONS AFFECTING LEARNING: None -declines need for f/u phone call Electronically Signed By: Anat Esquivel RN In Department: AMBULATORY SURGERY documented in this encounter [facility] 09-16-2023 History and physical note SEDATION HISTORY AND PHYSICAL EXAM SERVICE DATE: 09/16/2023 SERVICE TIME: 8:33 AM Subjective HPI: This is a 33 year old female who presents with Ryan's esophagus PAST ANESTHESIA HISTORY: No history of adverse event PAST MEDICAL HISTORY Diagnosis Date Hyperthyroidism Hyperthyroidism affecting in third trimester Other acne Post-surgical hypothyroidism Proteinuria since recent Toxic thyroid nodule PAST SURGICAL HISTORY Procedure Laterality Date COLONOSCOPY DIAGNOSTIC 09/2021 COLONOSCOPY DIAGNOSTIC 01/2012 EGD DIAGNOSTIC 09/2021 EGD DIAGNOSTIC 09/2022 SCLEROTHERAPY MULT VEINS Left 02/17/2019 THYROIDECTOMY TOTAL/COMPLETE Left 12/14/2018 partial Prior to Admission medications as of 09/16/23 0739 Medication Sig Last Dose Taking atomoxetine (STRATTERA) 18 mg capsule Take by mouth. 09/15/[address] (PROTONIX) 20 mg tablet Take 1 tablet by mouth two times a day before meals. 09/15/2023 Yes citalopram (CELEXA) 20 mg tablet Take by mouth once daily. 09/15/2023 Yes SYNTHROID 75 mcg tablet Take 1 tablet by mouth once daily. 09/16/2023 Yes Loperamide HCl (IMODIUM) 2 mg tab Take as directed. ALLERGIES No Known Allergies Objective PHYSICAL EXAM: The remainder of the physical exam is noncontributory. AIRWAY: Airway Visualization of Uvula: Yes Mouth opening greater than 2 fingerbreadths: Yes Neck Full Range of Motion: Yes LUNGS: Lungs clear to auscultation CARDIAC: Regular rhythm,Regular rate Assessment/Plan ASA Class: ASA Class:: Patient with mild systemic disease Active Problems: Ryan's esophagus Provisional Diagnosis/Treatment Plan: EGD with biopsies Procedure was discussed with the patient including risks of oversedation, bleeding, and perforation. Patient agreed to proceed. SEDATION GOAL: Anesthesia SIGNATURE: Calin Rossi MD PATIENT NAME: Christina Cooper DATE: September 16, 2023 TIME: 8:33 AM [facility] 09-16-2023 History and physical note SEDATION HISTORY AND PHYSICAL EXAM SERVICE DATE: 09/16/2023 SERVICE TIME: 8:33 AM Subjective HPI: This is a 33 year old female who presents with Ryan's esophagus PAST ANESTHESIA HISTORY: No history of adverse event PAST MEDICAL HISTORY Diagnosis Date Hyperthyroidism Hyperthyroidism affecting in third trimester Other acne Post-surgical hypothyroidism Proteinuria since recent Toxic thyroid nodule PAST SURGICAL HISTORY Procedure Laterality Date COLONOSCOPY DIAGNOSTIC 09/2021 COLONOSCOPY DIAGNOSTIC 01/2012 EGD DIAGNOSTIC 09/2021 EGD DIAGNOSTIC 09/2022 SCLEROTHERAPY MULT VEINS Left 02/17/2019 THYROIDECTOMY TOTAL/COMPLETE Left 12/14/2018 partial Prior to Admission medications as of 09/16/23 0739 Medication Sig Last Dose Taking atomoxetine (STRATTERA) 18 mg capsule Take by mouth. 09/15/[address] (PROTONIX) 20 mg tablet Take 1 tablet by mouth two times a day before meals. 09/15/2023 Yes citalopram (CELEXA) 20 mg tablet Take by mouth once daily. 09/15/2023 Yes SYNTHROID 75 mcg tablet Take 1 tablet by mouth once daily. 09/16/2023 Yes Loperamide HCl (IMODIUM) 2 mg tab Take as directed. ALLERGIES No Known Allergies Objective PHYSICAL EXAM: The remainder of the physical exam is noncontributory. AIRWAY: Airway Visualization of Uvula: Yes Mouth opening greater than 2 fingerbreadths: Yes Neck Full Range of Motion: Yes LUNGS: Lungs clear to auscultation CARDIAC: Regular rhythm,Regular rate Assessment/Plan ASA Class: ASA Class:: Patient with mild systemic disease Active Problems: Ryan's esophagus Provisional Diagnosis/Treatment Plan: EGD with biopsies Procedure was discussed with the patient including risks of oversedation, bleeding, and perforation. Patient agreed to proceed. SEDATION GOAL: Anesthesia SIGNATURE: Calin Rossi MD PATIENT NAME: Christina Cooper DATE: September 16, 2023 TIME: 8:33 AM documented in this encounter [facility] 09-16-2023 Nurse Note PRE OP LEARNING ASSESSMENT PROCEDURE/SURGERY: GI PROCEDURES: EGD READINESS TO LEARN COGNITIVE ABILITY: Alert and oriented MOTIVATION TO LEARN: Interested FAMILY SUPPORT: High - Very involved in pt care PATIENT LEARNS BEST BY: Individual Instruction Verbal Instruction FACTORS AFFECTING LEARNING: None PHYSICAL LIMITATIONS AFFECTING LEARNING: None -declines need for f/u phone call Electronically Signed By: Anat Esquivel RN In Department: AMBULATORY SURGERY [facility] 08-02-2023 Note HNO ID: [id number] Author: Calin Rossi MD Service: ? Author Type: Physician Type: Progress Notes Filed: 08/31/2023 2:49 PM Note Text: Chief Compliant: Christina Cooper, 33 year old female, presents in the office today at the request of Medhi Rivera for Ryan's esophagus. My final recommendations will be communicated back to the requesting physician by the way of the shared medical record, fax, or via US Mail. HPI: Christina Cooper is a 33 year old female who presents for [facility] care IBS-D, left thyroid lobectomy in 2019 with pathology demonstrating a microscopic focus of papillary thyroid cancer measuring 4mm. Also history of palpitations and a fine tremor that improved with methimazole IBS-D was diagnosed about 11 years ago Had colonoscopy at that time was normal . No biopsies were taken Was informed to take imodium as needed Symptoms were severe until she was diagnosed with Ryan's esophagus this was 2 years ago Since then she has been on protonix 40mg daily Since then the postprandial abd cramps and diarrhea had improved dramatically Currently she has one bowel movement daily Stool is formed No fecal urgency No abdominal pain or cramps Last EGD was Sep 2022 for Ryan's surveillance Went to ER few days after the EGD due to not being able to get PPI refill and had severe heartburn after the EGD Brother, maternal grandmother and maternal great grandmother all with UC. Brother required surgery (total colectomy age 37) Negative celiac serology Normal SBFT in 2019 Colonoscopy more than 10 years ago No report is available Previous OV Previous Procedures: 09-24-[address] Mason Kramer Impression Esophageal mucosal changes consistent with Barretts Erythematous mucosa in the antrum Normal second portion of the duodenum PATH- Distal esoph- no evidence of dysplasia, GE junction with chronic inflammation, golet cell metaplasia consisitant with Ryan's Gastrin antrum bx- neg HP, chronic gastritis/ 09-11-2021 EGD/Colonoscopy Dr Mason Kramer Impression LA Grade A reflux esophagitis Gastritis Normal second portion of the duodenum Congested mucosa in the sigmoid colon Mild Colonic spasm consistent with IBS Congested mucosa in the TI PATH- Duodenum- fragments of dudenal mucosa no pathologic dx Antrum- mild gastritis- Neg HP Distal esophageal bx- gocal intestinal metaplasia consistent with Ryan's esophagus. Negative for dysplasia Moderate chronic inflammation TI- fragments of small intestinal mucosa Colon random- no pathologic diagnosis Previous Imaging: ALLERGIES No Known Allergies citalopram (CELEXA) 20 mg tablet Take by mouth once daily. SYNTHROID 75 mcg tablet Take 1 tablet by mouth once daily. pantoprazole DR (PROTONIX) 40 mg tablet Take 40 mg by mouth once daily. levothyroxine (SYNTHROID) 75 mcg tablet Take 1 tablet by mouth once daily. Loperamide HCl (IMODIUM) 2 mg tab Take as directed. HISTORIES: FAMILY HISTORY Problem Relation Age of Onset Diabetes Sister Type II Diabetes Maternal Grandmother other (Rheumatoid Arthritis) Maternal Grandmother Cancer Maternal Grandfather lung PAST MEDICAL HISTORY Diagnosis Date Hyperthyroidism Hyperthyroidism affecting in third trimester Other acne Post-surgical hypothyroidism Proteinuria since recent Toxic thyroid nodule PAST SURGICAL HISTORY Procedure Laterality Date SCLEROTHERAPY MULT VEINS Left 02/17/2019 THYROIDECTOMY TOTAL/COMPLETE Left 12/14/2018 partial Social History Tobacco Use Smoking status: Never Smokeless tobacco: Never Substance Use Topics Alcohol use: No Drug use: No REVIEW OF SYSTEMS: General:No weight loss, malaise or fevers Respiratory: Negative for cough, hemoptysis, wheezing or shortness of breath Cardiovascular: Negative for chest pain, leg swelling or palpitations Gastrointestinal: No nausea, vomiting, or diarrhea Genitourinary: No history of dysuria, frequency or incontinence Musculoskeletal: Negative for joint pain or swelling, back pain or muscle pain Neurologic:Negative for focal numbness or weakness, headaches and dizziness or syncope. Skin:Negative for lesions, rash, and itching Psychiatric: anxiety Hematologic/Lymph:Negative for prolonged bleeding, bruising easily or swollen nodes Endocrine: see HPI PHYSICAL EXAMINATION: LMP 11/01/2019 General appearance: Well appearing, alert, in no acute distress, well-hydrated, well nourished. Skin: Skin color, texture, turgor normal, no suspicious rashes or lesions Head: Normocephalic, no masses, lesions, tenderness or abnormalities Eyes: Anicteric sclera. Pupils are equally round and reactive to light. Extraocular movements are intact. Ears: External ears normal, canals clear Nose/Sinuses: Nares normal, septum midline, mucosa normal, no drainage or sinus tenderness Neck: Supple, no adenopathy; thyroid symmetric, norm (more content not included)... [facility] 09-14-2022 History of Presen t illness Narrative Subjective HPI Thyroid Problem 07/24/17: TSH 0.011 (0.40-5.50), free T4 2.5 (0.9-1.7) 08/04/17: Thyroid ultrasound at [facility]: 4.3 x 3.1 x 2.5 cm hypervascular solid mass left lobe. Isthmus 9 x 6 x 5 mm solid nodule. Right lobe is homogeneous. Regional lymph nodes are normal. 08/20/17: TSI <13, microsomal antibody 20 (0-35) 11/01/17: TSH <0.01, free T4 1.21, free T3 5.4 -- increased methimazole to 7.5 mg daily. 01/10/18: TSH <0.01, free T4 1.24 02/03/18: TSH <0.01, free T4 1.41 03/03/18: TSH <0.01, free T4 1.51 (0.76-1.46), free T3 5.6 (2.18-3.98) 03/18/18: Initial visit. 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 Pt is currently 35 weeks and is due early April. She lives in [place] and has been following with manager [address] Dr. Whitfield and attending psychiatrist Dr. Jane in [facility]. Pt states she was diagnosed with hyperthyroidism before she got in July,. She had no issues with her first in 2013. In 2016 she noted a visible left neck lump and had thyroid ultrasound done at [facility] showing large neck mass (trying to obtain report). She states she never was able to get thyroid uptake and scan done due to + test. TSI and microsomal antibody was normal. She was initially started on PTU and then was switched to methimazole in the second trimester. She has been on methimazole 7.5 mg daily for the past few months. Pt states that Dr. Jane was suggesting that pt get I-131 treatment immediately after delivery and pt is not wanting to do that as she wants to breast feed. Denies difficulty swallowing or pressure sensation. No family hx of thyroid cancer or thyroid disorders. Pt notes occasional palpitations and a fine tremor which has improved since methimazole dose was increased. States she had a rash a few weeks ago which then went away. Last labs done 03/03 - reviewed written note - no changVisible/palpable large left thyroid mass in the setting of 3rd trimester of with hyperthyroidism. Thyroid antibody testing was normal in the 1st trimester. Taking methimazole 7.5 mg daily. Pt is here for second opinion as she desires to breast feed after delivery and was encouraged to have I-131 treatment immediately after delivery by previous attending psychiatrist. Thyroid ultrasound performed in the office by me today reveals: The right lobe is not enlarged and measures 4.66 x 1.05 x 1.16 cm. It is heterogeneous containing some small blood vessels with a few tiny nodular areas and no dominant nodules. The isthmus measures 0.23 cm in depth. The left lobe is comprised of a large heterogeneous mass that takes up the entire lobe measuring 4.66 x 1.05 x 1.16 cm with smooth borders and increased vascularity and no calcifications. No abnormal appearing neck lymph nodes seen. Due to large size and appearance recommend that pt consider left thyroid lobectomy in the future rather than I-131 treatment as this will provide definitive treatment of hyperthyroidism and rule out malignancy (reviewed lower risk of malignancy with toxic nodule). 05/19/18: TSH 0.008, free T4 1.4, free T3 elevated 6.9. CBC/CMP normal. Total protein slightly low. 05/23/18: She delivered a healthy baby boy 6 weeks ago named Aneudy who is at appt today. Free T3 is now higher. Increase methimazole to 15 mg daily - she can space out the dosing to avoid nausea and take dose just after a feed. 07/07/18: TSH <0.001 ( 1.0400-5.500), Free T4 1.1, Free T3 4.4 (2.3-4.1) 07/18/18: Free T4 1.1, Free T3 4.6 (2.3-4.1) 08/25/18: TSH <0.005(0.400-5.500), Free T4 1.0, Free T3 4.2 ( 2.3-4.1) 12/14/18: Left thyroid lobectomy at [facility] by Dr. 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 No angiolymphatic invasion or extrathyroidal extension. One lymph node negative for carcinoma. 01/05/19: TSH 14.64, free T4 low 0.3, free T3 low at 1.6, calcium normal 9.6 01/09/19 visit: Pt was in communication a few days ago noting severe fatigue. Started levothyroxine 75 mcg daily 2 days ago via [employer]. 03/09/19: TSH 1.200, Free T4 1.2, Free T3 2.4. Continue levothyroxine 75 mcg daily. 07/06/19: TSH 1.380, Free T4 1.2 09/11/19: Recent labs reviewed with pt. Pt had labs done in June because she was not feeling well with tension headaches and wanted to rule out out any thyroid abnormalities. Pt currently taking levothyroxine 75 mcg daily. Denies difficulty swallowing or pressure sensation. No neck enlargement. Weight is stable. Microscopic focus 4 mm papillary thyroid cancer noted on path report of left lobe. Since right lobe was heterogeneous in the past I repeated ultrasound. Thyroid ultrasound performed in the office by me today (compared to 03/28/18) reveals: The right lobe is not enlarged and measures 4.6 x 1.72 x 1.04 cm. It is heterogeneous containing some small blood vessels with a few tiny hypoechoic nodular areas (2-3 mm) and no dominant nodules. The left thyroid lobe is now surgically absent. Small remnant remains. No abnormal appearing neck lymph nodes seen. I reviewed the images with the pt in real time. Impression: Stability of remaining right thyroid lobe. Plan: Will repeat ultrasound in 2 years (around Sep, 2021) 08/12/20: TSH 0.732, free T4 1.2. Continue levothyroxine 75 mcg daily. 08/04/21: TSH 1.05, free T4 1.4 09/15/21 visit: Recent labs reviewed with pt. Taking levothyroxine 75 mcg daily properly with no missed doses. Also due for neck ultrasound today to re-evaluate remaining right thyroid lobe. No new neck concerns. No neck masses or tenderness. Had COVID in Nov and has since been vaccinated. Thyroid ultrasound done in the office by me today to re-evaluate remaining right lobe (compared to 09/11/19) reveals: The right lobe is not enlarged and measures 4.44 x 1.16 x 1.21 cm. It is heterogeneous containing some small blood vessels with a few tiny hypoechoic nodular areas (2-3 mm) and no dominant nodules. The left thyroid lobe is surgically absent. A small remnant remains. No abnormal appearing neck lymph nodes seen. I reviewed the images with the pt in real time. Impression: Stability of remaining right thyroid lobe. Plan: Will repeat ultrasound in 2 years (around Sep, 2023) 09/10/22: TSH 0.837, free T4 1.4 09/14/22 visit: Recent labs reviewed with pt. They are at goal. Taking levothyroxine 75 mcg daily properly with no missed doses. States had COVID 3 times. 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 Pt requests possibly trying brand Synthroid if insurance will cover. Last 2 Encounter Wt Readings: Date: Wt: 09/14/2022 60.1 kg (132 lb 6.4 oz) 04/03/2022 59.9 kg (132 lb) Review of Systems Constitutional: Negative for chills, diaphoresis, fever, malaise/fatigue and weight loss. HENT: Negative for congestion, ear discharge, ear pain, hearing loss, nosebleeds, sore throat and tinnitus. Eyes: Negative for blurred vision, double vision, photophobia, pain, discharge and redness. Respiratory: Negative for cough, hemoptysis, sputum production, shortness of breath and wheezing. Cardiovascular: Negative for chest pain, palpitations, orthopnea, claudication, leg swelling and PND. Gastrointestinal: Positive for diarrhea and heartburn. Negative for abdominal pain, blood in stool, constipation, melena, nausea and vomiting. Genitourinary: Negative for dysuria, flank pain, frequency, hematuria and urgency. Musculoskeletal: Negative for back pain, falls, joint pain, myalgias and neck pain. Skin: Negative for itching and rash. Neurological: Negative for dizziness, tingling, tremors, sensory change, speech change, focal weakness, seizures, loss of consciousness, weakness and headaches. Endo/Heme/Allergies: Negative for environmental allergies and polydipsia. Does not bruise/bleed easily. Psychiatric/Behavioral: Negative for depression, hallucinations, memory loss, substance abuse and suicidal ideas. The patient is nervous/anxious. The patient does not have insomnia. PAST MEDICAL HISTORY Diagnosis Date Hyperthyroidism Hyperthyroidism affecting in third trimester Other acne Post-surgical hypothyroidism Proteinuria since recent Toxic thyroid nodule PAST SURGICAL HISTORY Procedure Laterality Date SCLEROTHERAPY MULT VEINS Left 02/17/2019 THYROIDECTOMY TOTAL/COMPLETE Left 12/14/2018 partial FAMILY HISTORY Problem Relation Age of Onset Diabetes Sister Type II Diabetes Maternal Grandmother other (Rheumatoid Arthritis) Maternal Grandmother Cancer Maternal Grandfather lung Social History Tobacco Use Smoking status: Never Smokeless tobacco: Never Substance Use Topics Alcohol use: No Drug use: No Current Meds citalopram (CELEXA) 20 mg tablet Take by mouth once daily. pantoprazole DR (PROTONIX) 40 mg tablet Take 40 mg by mouth once daily. levothyroxine (SYNTHROID) 75 mcg tablet Take 1 tablet by mouth once daily. Loperamide HCl (IMODIUM) 2 mg tab Take as directed. SYNTHROID 75 mcg tablet Take 1 tablet by mouth once daily. Objective BP 116/73 (BP Site: Right Arm, BP Position: Sitting, BP Cuff Size: Regular Adult) Pulse 81 Ht 167.6 cm (5' 6) Wt 60.1 kg (132 lb 6.4 oz) LMP 11/01/2019 SpO2 95% BMI 21.37 kg/m Physical Exam Constitutional: Pt is oriented to person, place, and time and well-developed, well-nourished, and in no distress. Head: Normocephalic and atraumatic. Wearing a mask. Eyes: Conjunctivae and EOM are normal. Neck: midline surgical scar , no palpable thyroid masses or adenopathy Pulmonary/Chest: Effort normal. Musculoskeletal: Normal range of motion. No edema. Neurological: Gait normal. Skin: Skin is warm and dry. Psychiatric: Mood, memory, affect and judgment normal. ASSESSMENT/PLAN: 1. Postoperative hypothyroidism - ICD9: 244.0, ICD10: E89.0 (primary diagnosis) Recent labs reviewed with pt and are at goal taking generic levothyroxine 75 mcg daily. Will change to Synthroid 75 mcg daily per pt request if covered by insurance (just got 90 day supply of generic). If not, then pt will let me know and will continue generic. Follow-up in one year with labs done the week before appt. - SYNTHROID 75 MCG TABLET - TSH BLD - T4 FREE/FREE THYROX 2. History of partial thyroidectomy - ICD9: 246.8, ICD10: E89.0 3. Thyroid cancer (HCC) - ICD9: 193, ICD10: C73 Left thyroid lobectomy done for toxic nodule with microscopic focus 4 mm papillary thyroid cancer noted on final pathology report of left lobe. Doing ultrasound q 2 years to ensure stability or right lobe. Will do next ultrasound at Sep, 2023 appt. Alcides Ramon DO documented in this encounter [facility] 04-03-2022 History of Presen t illness Narrative VASCULAR SURGERY ESTABLISHED PATIENT SUBJECTIVE HISTORY OF PRESENT ILLNESS: Patient returns for a follow up after sclerotherapy to treat symptomatic veins. She has previous treatment in the past and small veins persist. Reviewed procedure and consent obtained. PAST MEDICAL/SURGICAL/FAMILY/SOCIAL HISTORY PAST MEDICAL HISTORY Diagnosis Date Hyperthyroidism Hyperthyroidism affecting in third trimester Other acne Proteinuria since recent Toxic thyroid nodule PAST SURGICAL HISTORY Procedure Laterality Date SCLEROTHERAPY MULT VEINS Left 02/17/2019 THYROIDECTOMY TOTAL/COMPLETE Left 12/14/2018 partial FAMILY HISTORY Problem Relation Age of Onset Diabetes Sister Type II Diabetes Maternal Grandmother other (Rheumatoid Arthritis) Maternal Grandmother Cancer Maternal Grandfather lung SOCIAL HISTORY Social History Tobacco Use Smoking status: Never Smoker Smokeless tobacco: Never Used Substance Use Topics Alcohol use: No Drug use: No MEDICATIONS/ALLERGIES Current Outpatient Medications Medication Sig Dispense Refill pantoprazole DR (PROTONIX) 40 mg tablet Take 40 mg by mouth once daily. levothyroxine (SYNTHROID) 75 mcg tablet Take 1 tablet by mouth once daily. 90 tablet 3 Loperamide HCl (IMODIUM) 2 mg tab Take as directed. 60 tablet 3 sertraline (ZOLOFT) 50 mg tablet Take 50 mg by mouth once daily. Takes 1.5 tablets daily. No current facility-administered medications for this visit. ALLERGIES No Known Allergies OBJECTIVE BP 110/68 (BP Site: Left Arm, BP Position: Sitting, BP Cuff Size: Regular Adult) Pulse 74 Ht 167.6 cm (5' 6) Wt 59.9 kg (132 lb) LMP 11/01/2019 SpO2 100% BMI 21.31 kg/m General: Alert and oriented, No acute distress Ext: bilateral small varicose veins The patient was placed in the supine position and the bilateral lower extremities were cleansed with isopropyl alcohol. Syringes containing 2 mL of 0.5% Asclera were prepared and veins in the anterior legs were injected using an angled 30-gauge needle. A total of 2 mL of solution injection. Cotton balls were used to apply pressure secured down with paper tape. Once all injections were completed the legs were cleansed with isopropyl alcohol and the patient put on coban compression wrap. There were no complications and the patient tolerated the procedure well. ASSESSMENT Symptomatic varicose veins PLAN/RECOMMENDATIONS Reviewed home going instructions Follow up in [place] in 4-6 weeks with any concerns or additional session of sclerotherapy if needed SIGNATURE: Telma Phan DO PATIENT NAME: Christina Cooper DATE: April 20, 2022 TIME: 2:51 PM documented in this encounter [facility] 01-09-2019 History of Past i llness Narrative Problem Noted Date Resolved Date History of hyperthyroidism 01/09/201909/16 Thyroid mass 11/10/2018 12/15/2018 Overview: Added automatically from request for surgery [id number] Nodular goiter 05/23/2018 01/09/2019 Hyperthyroidism 01/09/[address] [facility] 05/23/2018 documented as of this encounter (statuses as of 02/13/2022) [facility] History of Past illness Narrative* Problem Noted Date Resolved Date History of hyperthyroidism 01/09/201909/16 Thyroid mass 11/10/2018 12/15/2018 Overview: Added automatically from request for surgery [id number] Nodular goiter 05/23/2018 01/09/2019 Hyperthyroidism 01/09/2019 Hyperthyroidism affecting in third [facility] 05/23/2018 documented as of this encounter (statuses as of 04/20/2022) [facility] History of Past illness Narrative* Problem Noted Date Resolved Date History of hyperthyroidism 01/09/201909/16 Thyroid mass 11/10/2018 12/15/2018 Overview: Added automatically from request for surgery [id number] Nodular goiter 05/23/2018 01/09/2019 Hyperthyroidism 01/09/2019 Hyperthyroidism affecting in third tri mester 05/23/2018 Toxic thyroid nodule 09/14/2022 documented as of this encounter (statuses as of 09/14/2022) [facility] History of Past illness Narrative* Problem Noted Date Diagnosed Date Resolved Date History of hyperthyroidism 01/09/2019 1 11/17/2019 Thyroid mass 11/10/2018 12/15/2018 Overview: Added automatically from request for surgery [id number] Nodular goiter 05/23/2018 01/09/2019 Hyperthyroidism 01/09/2019 Hyperthyroidism affecting pr egnancy in third trimester 05/23/2018 Toxic thyroid nodule 022 documented as of this encounter (statuses as of 09/15/2023) [facility] History of Past illness Narrative* Problem Noted Date Diagnosed Date Resolved Date History of hyperthyroidism 01/09/2019 1 11/17/2019 Thyroid mass 11/10/2018 12/15/2018 Overview: Added automatically from request for surgery [id number] Nodular goiter 05/23/2018 01/09/2019 Hyperthyroidism 01/09/2019 Hyperthyroidism affecting pr egnancy in third trimester 05/23/2018 Toxic thyroid nodule 022 documented as of this encounter (statuses as of 09/20/2023) [facility] History of Past illness Narrative* Problem Noted Date Diagnosed Date Resolved Date History of hyperthyroidism 01/09/2019 1 11/17/2019 Thyroid mass 11/10/2018 12/15/2018 Overview: Added automatically from request for surgery [id number] Nodular goiter 05/23/2018 01/09/2019 Hyperthyroidism 01/09/2019 Hyperthyroidism affecting pr egnancy in third trimester 05/23/2018 Toxic thyroid nodule 022 documented as of this encounter (statuses as of 01/16/2024) [facility] Diagnosis Postoperative hypothyroidism- Primary Postsurgical hypothyroidism [facility]* Diagnosis Symptomatic varicose veins of both lower extremities- Primary Varicose veins of lower extremities with other complications [facility]* Diagnosis Postoperative hypothyroidism- Primary Postsurgical hypothyroidism History of partial thyroidectomy Other postprocedural status Thyroid cancer (HCC) Malignant neoplasm of thyroid gland [facility]* Diagnosis Onset Date Resolution Status Anxiety chronic Anxiety chronic [facility] Work Phone: Evaluation note* Diagnosis Postoperative hypothyroidism- Primary Postsurgical hypothyroidism History of partial thyroidectomy Other postprocedural status Thyroid cancer (HCC) Malignant neoplasm of thyroid gland [facility]* Diagnosis Ryan's esophagus without dysplasia Ryan's esophagus documented in this encounter [facility] note* Diagnosis Ryan's esophagus without dysplasia Ryan's esophagus documented in this encounter [facility] note* Diagnosis Onset Date Resolution Status Easy bruising acute Inguinal lymphadenopathy acu te Itching acute [facility] Work Phone: Evaluation note* Diagnosis Symptomatic spider varicose vein- Primary Varicose veins of lower extremities with other complications [facility]* Diagnosis Ryan's esophagus without dysplasia Ryan's esophagus documented in this encounter [facility] note* Diagnosis Ryan's esophagus without dysplasia Ryan's esophagus documented [facility]* Diagnosis Postoperative hypothyroidism- Primary Postsurgical hypothyroidism History of partial thyroidectomy Other postprocedural status History of papillary adenocarcinoma of thyroid Personal history of malignant neoplasm of thyroid documented in this encounter [facility] Discharge instructions Additional Instructions Please follow-up with PCP/Dr. Kramer as needed. Please return for any worsening of your symptoms.[facility] Work Phone: Reason for referral (narrative)* Diagnostic Procedure Only (Routine) - Pending Review Specialty Diagnoses / Procedures Referred By Kevin luz Referred To Contact [facility] Diagnoses History of partial thyroidectomy Thyroid cancer (HCC) Procedures US THYROID/PARATHYROID US SOFT TISSUE HEAD & NECK REAL TIME IMGE DOCAlcides Granados DO [address] [place] [address] [place] [address] Referral ID Status Reason Start Date Expiration Date Visits Requested Visits Authorized [id number] Pending Review Auto-Generat ed Referral 10/19/2024 1 1 [facility] for referral (narrative)* Outpatient Procedure (Routine) - Closed Specialty Diagnoses / Procedures Referred By Contac t Referred To Contact [facility] Diagnoses Ryan's esophagus without dysplasia Procedures EGD DIAGNOSTIC ESOPHAGOGASTRODUODENOSC OPY [place] [address] [place] [address] [facility] [address] [place], [place] [address] [place] [address] Referral ID Status Reason Start Date Expiration Date V isits Requested Visits Authorized [id number] Closed Auto-Generate d Referral 08/02/2023 08/02/2024 1 1 [facility] for visit Narrative* Outpatient Procedure (Routine) - Closed Specialty Diagnoses / Procedures Referred By Contitzel t Referred To Contact [facility] Diagnoses Ryan's esophagus without dysplasia Procedures EGD DIAGNOSTIC ESOPHAGOGASTRODUODENOSC OPY [place] [address] [place] [address] [facility] [address] [place] [address] Referral ID Status Reason Start Date Expiration Date V isits Requested Visits Authorized [id number] Closed Auto-Generate d Referral 08/02/2023 08/02/2024 1 1 [facility] Summary Purpose Family History No Family History Records Found Relationship Condition Age at Onset Recorded Date/T sahara sister Diabetes mellitus Unknown Advance Directives No Advanced Directives Records FoundDocuments on File Type Date Recorded Patient Food Cashier Expl anation Advance Directive(s) 12/14/2018 9:32 AM Advance Directive Response Recorded Date/ Time Name of Medical Power of Analytics Analyst SPOUSE September 23, 2022 11:18am Living Will Yes September 23, 11:18am Power of Analytics Analyst Yes September 23, 2022 11:18am Advance Directive Response Recorded Date/ Time Name of Medical Power of Analytics Analyst SPOUSE September 23, 2022 11:18am Name of Medical Power of Analytics Analyst cliff yuan September 29, 2022 1:25pm Living Will Yes September 29, 2 022 1:25pm Power of Analytics Analyst Yes September 29, 2022 1:25pm Advance Directive Response Recorded Date/ Time Living Will Yes September 29, 2 022 2:25pm Power of Analytics Analyst Yes September 29, 2022 2:25pm Chief Complaint and Reason for Visit Chief Complaint 3 m fu 6 WK FU Reason for Visit Anxiety Anxiety Chief Complaint 3 m fu 6 WK FU ABD PAIN Reason for Visit Anxiety Anxiety Chief Complaint THYROID ISSUES / BRU ISING ISSUES Reason for Visit Easy bruising Inguinal lymphadenopathy Itching Additional Source Comments INFORMATION SOURCE (unrecogn ized section and content) DATE CREATED AUTHOR 04/05/2018 [facility] ([place]) DATE CREATED AUTHOR AUTHOR'S ORGANIZ ATION 04/05/2018 [facility] DATE CREATED AUTHOR AUTHOR'S ORGANIZ ATION 09/10/2019 [facility] DATE CREATED AUTHOR AUTHOR'S ORGANIZ ATION 04/06/2024 [facility] DATE CREATED AUTHOR AUTHOR'S ORGANIZ ATION 09/21/2024 [facility] DATE CREATED AUTHOR AUTHOR'S ORGANIZ ATION 03/26/2025 [facility] Source Comments (unrecognize d section and content) In the event this informatio n is protected by the Federal Confidentiality of Alcohol and Drug Abuse Patient Records regulations: The Federal rules restrict any use of the information to criminally investigate or prosecute any alcohol or drug abuse patient.[facility] the event this information is protected by the Federal Confidentiality of Alcohol and Drug Abuse Patient Records regulations: The Federal rules restrict any use of the information to criminally investigate or prosecute any alcohol or drug abuse patient.[facility] the event this information is protected by the Federal Confidentiality of Alcohol and Drug Abuse Patient Records regulations: The Federal rules restrict any use of the information to criminally investigate or prosecute any alcohol or drug abuse patient.[facility] the event this information is protected by the Federal Confidentiality of Alcohol and Drug Abuse Patient Records regulations: The Federal rules restrict any use of the information to criminally investigate or prosecute any alcohol or drug abuse patient.[facility] the event this information is protected by the Federal Confidentiality of Alcohol and Drug Abuse Patient Records regulations: The Federal rules restrict any use of the information to criminally investigate or prosecute any alcohol or drug abuse patient.[facility] the event this information is protected by the Federal Confidentiality of Alcohol and Drug Abuse Patient Records regulations: The Federal rules restrict any use of the information to criminally investigate or prosecute any alcohol or drug abuse patient.[facility] the event this information is protected by the Federal Confidentiality of Alcohol and Drug Abuse Patient Records regulations: The Federal rules restrict any use of the information to criminally investigate or prosecute any alcohol or drug abuse patient.[facility] the event this information is protected by the Federal Confidentiality of Alcohol and Drug Abuse Patient Records regulations: The Federal rules restrict any use of the information to criminally investigate or prosecute any alcohol or drug abuse patient.[facility] the event this information is protected by the Federal Confidentiality of Alcohol and Drug Abuse Patient Records regulations: The Federal rules restrict any use of the information to criminally investigate or prosecute any alcohol or drug abuse patient.[facility] the event this information is protected by the Federal Confidentiality of Alcohol and Drug Abuse Patient Records regulations: The Federal rules restrict any use of the information to criminally investigate or prosecute any alcohol or drug abuse patient.[facility] the event this information is protected by the Federal Confidentiality of Alcohol and Drug Abuse Patient Records regulations: The Federal rules restrict any use of the information to criminally investigate or prosecute any alcohol or drug abuse patient.[facility] Care Teams (unrecognized sec tion and content) Steam Conditioner Operator Relationship Specialty Start Date End Date Mehdi Rivera MD PCP - General Internal Medicine 08/29/18 Lillian Pearl MD [address] [place], [place] [id number] Nephrology 11/08/18 Alcides Ramon, DO [address] [place], [place] [id number] Endocrinology 11/08/18 Steam Conditioner Operator Relationship Specialty Start Date End Date Mehdi Rivera MD PCP - General Internal Medicine 08/29/18 Lillian Pearl MD [address] [place], [place] [phone] Nephrology 11/08/18 Alcides Ramon DO [address] [place], [place] [id number] Endocrinology 11/08/18 Steam Conditioner Operator Relationship Specialty Start Date End Date Mehdi Rivera MD PCP - General Internal Medicine 08/29/18 Lillian Pearl MD [address] [place] [address] Nephrology 11/08/18 Alcides Ramon DO [address] [place] [address] Endocrinology 11/08/18 Steam Conditioner Operator Relationship Specialty Start Date End Date Mehdi Rivera MD PCP - General Internal Medicine 08/29/18 Lillian Pearl MD [address] [place] [address] Nephrology 11/08/18 Alcides Ramon DO [address] [place], [place] [phone] Endocrinology 11/08/18 Steam Conditioner Operator Relationship Specialty Start Date End Date Mehdi Rivera MD PCP - General Internal Medicine 08/29/18 Lillian Pearl MD [address] [place] [address] Nephrology 11/08/18 Alcides Ramon DO [address] [place], [place] [id number] Endocrinology 11/08/18 Steam Conditioner Operator Relationship Specialty Start Date End Date Mehdi Rivera MD PCP - General Internal Medicine 08/29/18 Lillian Pearl MD [address] [place], [place] [address] Nephrology 11/08/18 Alcides Ramon DO [address] [facility] [address] [place], [place] [id number] Endocrinology 11/08/18 Steam Conditioner Operator Relationship Specialty Start Date End Date Mehdi Rivera MD PCP - General Internal Medicine 08/29/18 Lillian Pearl MD [address] [place] [address] Nephrology 11/08/18 Alcides Ramon DO [address] [facility] [address] [place], [place] [phone] Endocrinology 11/08/18 Team Status: Active Member Role Status Dates Dr. Mehdi Rivera MD Family Provider Active Dr. Mehdi Rivera MD Primary Care Provider Active Team Status: Inactive Member Role Status Dates Dr. Mehdi Rivera MD Primary Care Provider, Refer ring Provider Active JEREMIAS Flores Attending Provider Active Team Status: Inactive Member Role Status Dates Dr. Mehdi Rivera MD Primary Care Provider Active Mere Ferullo , [employer] [place] [employer] Attending Provider, Referring Pro vider Active Steam Conditioner Operator Relationship Specialty Start Date End Date Mehdi Rivera MD PCP - General Internal Medicine 08/29/18 Lillian Pearl MD [address] [place] [address] Nephrology 11/08/18 Alcides Ramon DO [address] [place], [place] [phone] Endocrinology 11/08/18 Steam Conditioner Operator Relationship Specialty Start Date End Date Mehdi Rivera MD PCP - General Internal Medicine 08/29/18 Lillian Pearl MD [address] [place] [address] Nephrology 11/08/18 Alcides Ramon DO [address] [place], [place] [phone] Endocrinology 11/08/18 Steam Conditioner Operator Relationship Specialty Start Date End Date Mehdi Rivera MD PCP - General Internal Medicine 08/29/18 Lillian Pearl MD [address] [place] [address] Nephrology 11/08/18 Alcides Ramon DO [address] [place], [place] [phone] Endocrinology 11/08/18 Steam Conditioner Operator Relationship Specialty Start Date End Date Mehdi Rivera MD PCP - General Internal Medicine 08/29/18 Lillian Pearl MD [address] [place] [address] Nephrology 11/08/18 Alcides Ramon DO [address] [facility] [address] [place], [place] [phone] Endocrinology 11/08/18 Reason for Visit (unrecogniz ed section and content) Reason Comments Sclerotherapy Tx Specialty Diagnoses / Procedures Referred By Kevin luz Referred To Contact Peripheral Vascular / VASCULAR SURGERY Diagnoses Varicose veins of both lower extremities sclero Procedures INJECTION SCLEROSANT MULTIPLE INCMPTNT VEINS SCLEROTHERAPY Telma Phan, DO [address] [address] Telma Phan, [place] [address] [place] [address] Referral ID Status Reason Start Date Expiration Date Visits Re quested Visits Authorized [id number] Closed 03/20/2022 10/10/2022 1 1 Reason Comments Thyroid Problem Reason Comments Thyroid Problem Reason Comments Refill Request Reason Onset Date Comments Refill Request 01/13/2024 Specialty Diagnoses / Procedures Referred By Kevin luz Referred To Contact Peripheral Vascular / VASCULAR SURGERY Diagnoses Varicose veins of bilateral lower extremities with pain Spider Veins Injections Procedures INJECTION SCLEROSANT MULTIPLE INCMPTNT VEINS SCLEROTHERAPY Telma Phan, DO [address] [address] Telma Phan, DO [address] [address] Referral ID Status Reason Start Date Expiration Date Visits Re quested Visits Authorized [id number] Closed 03/13/2024 06/11/2024 1 1 Reason Onset Date Comments Refill Request 09/12/2024 Pantoprazole 40m g Goals (unrecognized section and content) Goals may be documented in a n alternate section FOR RECORDS PERTAINING TO PATIENTS WHO ARE OR HAVE BEEN ENROLLED IN A CHEMICAL DEPENDENCY/SUBSTANCEABUSE PROGRAM, SOME INFORMATION MAY BE OMITTED. This clinical summary was aggregated from multiple sources. Caution should be exercised in using it in the provision of clinical care. This summary normalizes information from multiple sources, and as a consequence, information in this document may materially change the coding, format and clinical context of patient data. In addition, data may be omitted in some cases. CLINICAL DECISIONS SHOULD BE BASED ON THE PRIMARY CLINICAL RECORDS. [facility] [employer] [facility] provides no warranty or guarantee of the accuracy or completeness of information in this document.
== END | disposition home or self-care (01) ==
PROVIDERS: PCP Internal Medicine; Referring Provider Internal Medicine; Visit Provider Internal Medicine
DX: R92.8 Other abnormal and inconclusive findings on diagnostic imaging of breast (principal)
CPT/HCPCS: 76642; 77066

== ENCOUNTER 2025-05-21 09:50 | Emergency (ER) | payer OTHER, SELFPAY ==
[2025-05-21 09:51] VITALS: BP 116/74; PULSE 68; RESP 14; TEMP 36.6; O2SAT 98; BMI 22.8
--- NOTE | 2025-05-21 09:59 | EX.ED.DYSGE1 ---
HPI History of Present Illness Chief Complaint: Bite Detail of Chief Complaint: Patient awoke because a bat flew into her Informant: patient Onset/Context/Timing Onset: Today Context: Sudden Onset Timing: - (Awoke with a bat in her bedroom) Quality: Patient was asleep. Apparently the bat struck the right side of her chest Location: Presents from home after contacting health department Current Severity: Not applicable Maximum Severity: Not applicable Worsened by: patient awoke with bat in her bedroom Relieved by: Not applicable Associated Symptoms Associated Symptoms: None Narrative Narrative: Patient is a 35-year-old woman who appears no distress. She was awakened because of that bumped into her and awoke her from sleep. Patient states her dog was in the room. The dog's vaccines are up-to-date including rabies. She contacted the health department. Her is attempting to catch the bat. She was told to put up the bat in a brown paper bag bring it to the health department. Patient has history of GERD and hypothyroidism. Prior similar symptoms: No Recent Illness/Hospitalization: No PFSH PFSH Medical History ADHD Ryan esophagus Cancer Anxiety Migraine headache Non-smoker Thyroid disease History of renal disease Heartburn History of IBS Hypothyroidism Home Medications ?Medication ?Instructions ?Recorded ?Last Taken ?Type atomoxetine 60 mg capsule 60 mg PO QAM #90 caps 01/18/25 Unknown Rx citalopram 20 mg tablet 20 mg PO QDAY #90 tabs 01/18/25 Unknown Rx levothyroxine 75 mcg tablet 75 mcg PO DAILY #90 tabs 01/18/25 Unknown Rx pantoprazole 40 mg tablet,delayed 20 mg (1/2 x 40 mg) PO BID #180 01/18/25 Unknown Rx release tabs Allergy/AdvReac Type Severity Reaction Status Date / Time No Known Allergies Allergy Verified 05/21/25 09:51 Family History Sister Diabetes Surgical History Hx of colonoscopy History of partial thyroidectomy Social History (Updated 05/21/25 @ 10:[address] Ranjit Patel MD) household members: spouse and children Smoking Status: Never smoker alcohol intake: never substance use type: does not use what type of physical activity do you participate in: running frequency: 3-4 times per week ROS ROS ED Constitutional Constitutional ED: Denies chills or fever(s) Eyes Eyes: Denies blurry vision or change in vision Cardiovascular Cardiovascular: Denies chest pain Respiratory/Chest Respiratory/Chest: Denies dyspnea Integumentary Denies rash Neurologic Neurologic: Denies headache(s), paresthesias or weakness EXAM Physical Exam Const Vital Signs: 05/21/25 09:51 Temperature 97.9 F Temperature Source Temporal Pulse Rate 68 Respiratory Rate 14 Blood Pressure 116/74 Blood Pressure Mean 88 Pulse Ox 98 Oxygen Delivery Method Room Air Positive well nourished and well developed General Appearance ED: well developed HEENT HEENT Narrative: Head is atraumatic normocephalic. Ears normal. Nares patent. Eyes PERRL and EOMs intact bilaterally General Eye ED: Yes scleral icterus Resp normal respiratory effort and clear to auscultation bilaterally Cardio regular rate, regular rhythm, S1 normal heart sound, S2 normal heart sound and no murmurs Extremity normal to inspection Neuro oriented x3 and CN's II-XII intact bilaterally Sensorium / Orientation: alert Psych mental status grossly normal Skin no rashes or lesions noted, no wounds and skin turgor normal MDM MDM MDM Narrative Medical decision making narrative: With history of awakening due to baths and the fact that there have been baths that tested positive in her area for rabies she was sent in for rabies immunoglobulin and vaccine. These were ordered. Will also orders serial test to be done on day 3 7 and 14. Patient then instructed to save the bat to be tested which may reduce the amount of shots that she will need. History & Record Review Additional record(s) reviewed:: Prior outpatient record (Internal medicine visit is for ADHD by JESUS Son and Dr. Rivera there have also been office visits for anxiety.), Prior ED visit (September 2022 for abdominal pain. Note was authored by Cristiane Velazquez.) and Prior labs Discharge Plan Triage Chief Complaint: Bite ED Provider: Ranjit Patel Dx/Rx/DC Orders Clinical Impression: Exposure to bat without known bite, Hyperthyroidism, ADHD, Encounter for medical screening examination Instructions: Rabies Immune Globulin, Human Injection, Understanding Rabies, Rabies Vaccine Prescriptions: No Action citalopram 20 mg tablet 20 mg PO QDAY Qty: 90 1RF levothyroxine 75 mcg tablet 75 mcg PO DAILY Qty: 90 1RF pantoprazole 40 mg tablet,delayed release (DR/EC) 20 mg PO BID Qty: 180 1RF atomoxetine 60 mg capsule 60 mg PO QAM Qty: 90 0RF Primary Care Provider: Mehdi Rivera Referrals: Mehdi Rivera MD [Primary Care Provider] - As Needed Print Language: Belarusian Disposition Disposition: Home, Self Care
[2025-05-21] MEDS: Rabies Immune Globulin/PF 300 UNIT/ML, 5 ML VIAL 1290 UNIT IM (11:03)
[2025-05-21 11:31] VITALS: BP 116/74; PULSE 68; RESP 14; TEMP 36.6; O2SAT 98
== END 2025-05-21 11:32 | disposition home or self-care (01) ==
PROVIDERS: Emergency Provider Emergency Medicine; PCP Internal Medicine; Visit Provider Emergency Medicine
DX: Z20.3 Contact with and (suspected) exposure to rabies (principal); F41.9 Anxiety disorder, unspecified; E03.9 Hypothyroidism, unspecified; F90.9 Attention-deficit hyperactivity disorder, unspecified type
CPT/HCPCS: 90675; 99282; 90375